=== PATIENT | female | born 1960 | race Caucasian/White ===

== ENCOUNTER 2019-05-22 12:32 | Outpatient (CLI) | payer MEDICARE, MEDICAID, SELFPAY ==
--- NOTE | ~2019-05-22 | US_ITS ---
EXAMINATION: US venous doppler [facility] EXAM DATE: 05/22/2019 13:07 INDICATION: Left leg pain. TECHNIQUE: Multiple grayscale, color flow and Doppler images of the left lower extremity deep venous system were obtained and reviewed. There is no prior study for comparison. FINDINGS: The left common femoral, femoral and profunda veins demonstrate normal color flow, respirat ory variation, augmentation and compressibility. Compressibility, color flow confirmed within the le ft popliteal, posterior tibial, peroneal, and greater saphenous veins. Small Jang's cyst measuring 2.7 x 0.7 x 2.1 cm. IMPRESSION: 1. No left lower extremity deep venous thrombosis. Reviewed, dictated and finalized at location B. 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
== END 2019-05-22 12:33 | disposition home or self-care (01) ==
LOC: ANHIMG 12:34
PROVIDERS: PCP Emergency Medicine; Visit Provider Emergency Medicine
DX: M79.662 Pain in left lower leg (principal)
CPT/HCPCS: 93971

== ENCOUNTER 2019-06-25 13:12 | Outpatient (CLI) | payer MEDICARE, MEDICAID, SELFPAY ==
--- NOTE | ~2019-06-25 | MM_ITS ---
EXAMINATION: MM screening [facility] BI w estrada HISTORY: Screening mammogram TECHNIQUE: Craniocaudal and mediolateral oblique 3-D tomosynthesis images were obtained and synthetic 2-D images were generated. CAD analysis was submitted and interpreted. COMPARISON: Comparison to multiple prior studies sequentially, with oldest reviewed study dated 08/2015. BREAST PARENCHYMAL COMPOSITION: There are scattered areas of fibroglandular density. FINDINGS: There is no evidence of suspicious mass, calcification, or architectural distortion to sugg est malignancy in either breast. There has been no suspicious interval change. IMPRESSION: 1. No mammographic evidence of malignancy. 2. Recommend routine screening mammography in one year. BI-RADS Category 1: Negative Reviewed, dictated and finalized at location A.
== END 2019-06-25 13:13 | disposition home or self-care (01) ==
LOC: ANHIMG 13:13
PROVIDERS: PCP Emergency Medicine; Visit Provider Emergency Medicine
DX: Z12.31 Encounter for screening mammogram for malignant neoplasm of breast (principal)
CPT/HCPCS: 77063; 77067

== ENCOUNTER 2019-06-28 13:37 | Outpatient (CLI) | payer MEDICARE, MEDICAID, SELFPAY ==
--- NOTE | ~2019-06-28 | CT_ITS ---
EXAMINATION: CT lung screening DATE: 06/28/2019 13:58 INDICATION: Personal history of tobacco dependence, current smoker with 30 pack year history TECHNIQUE: Computed tomography (CT) of the chest was performed without intravenous contrast. The dose -length product (DLP) was 116.43 mGy-cm. Automated exposure control and iterative reconstruction tech [employer] Test were employed. COMPARISON: 11/15/2013 FINDINGS: There is mild emphysema. A 3 mm nodule in the right upper lobe on image 29 is stable since the prior examination, consistent with old granulomatous disease. The lungs are free of acute opaciti es. There is no pleural effusion or pneumothorax. No pathologically enlarged thoracic lymph nodes are identified. The heart size is normal. There are partially imaged changes of anterior fusion procedur e in the lower cervical spine. The gallbladder is surgically absent. IMPRESSION: 1. Lung-RADS category 2: Benign appearance or behavior. Continue annual screening with noncontrast lo w-dose chest CT in 12 months. Reviewed, dictated and finalized at location A. IMPRESSION: 1. Lung-RADS category 2: Benign appearance or behavior. Continue annual screeni ng with noncontrast low-dose chest CT in 12 months.
== END 2019-06-28 13:38 | disposition home or self-care (01) ==
LOC: ANHIMG 13:39
PROVIDERS: PCP Emergency Medicine; Visit Provider Emergency Medicine
DX: Z12.2 Encounter for screening for malignant neoplasm of respiratory organs (principal); Z87.891 Personal history of nicotine dependence
CPT/HCPCS: G0297

== ENCOUNTER 2019-07-05 10:28 | Outpatient (CLI) | payer MEDICARE, MEDICAID, SELFPAY ==
--- NOTE | ~2019-07-05 | MR_ITS ---
EXAMINATION: MR lumbar spine wo con DATE: 07/05/2019 12:20 INDICATION: Lumbar radiculopathy TECHNIQUE: Magnetic resonance imaging (MRI) of the lumbar spine was performed without intravenous con trast. Sequences included sagittal T2-weighted FSE, sagittal T2-weighted FS FSE, sagittal T1-weighted FSE, and axial T2-weighted FSE. COMPARISON: Lumbar spine radiographs dated 04/25/2018 FINDINGS: 1-2 mm retrolisthesis L2 on L3, L3 on L4 and L4 on L5. Vertebral body heights are normal. Schmorl's n ode along the inferior endplate of L2. Moderate disc height loss at L2-L3 and L4-L5. Mild disc height loss at L3-L4 and L5-S1. Mild fibrofatty and fibrovascular degenerative endplate changes at these le vels. Marrow signal is otherwise normal. The conus medullaris terminates at L1-L2. There is normal si gnal in the caudal spinal cord. There is diffuse smooth thickening and peripheral clumping of the ner ve roots of the cauda equina extending inferiorly from the level of L4 consistent with arachnoiditis. Paravertebral soft tissues are unremarkable. The following disc levels are specifically discussed: T12-L1: The disc does not extend beyond the endplate margin. There is mild bilateral facet joint oste oarthritis. There is no neural foraminal stenosis. There is no central canal stenosis. L1-L2: The disc does not extend beyond the endplate margin. There is mild right and minimal left face t joint osteoarthritis. There is no neural foraminal stenosis. There is no central canal stenosis. L2-L3: Disc is bulging. There is mild bilateral facet joint osteoarthritis. There is moderate bilater al neural foraminal stenosis. There is mild central canal stenosis. L3-L4: Disc is bulging. There is mild to moderate bilateral facet joint osteoarthritis. There is mode rate bilateral neural foraminal stenosis. There is mild to moderate central canal stenosis. L4-L5: Disc is bulging. There is moderate right and mild to moderate left facet joint osteoarthritis. There is moderate bilateral neural foraminal stenosis. There is mild central canal stenosis. L5-S1: Disc is bulging. There is moderate bilateral neural facet joint osteoarthritis. There is moder ate bilateral neural foraminal stenosis. There is mild central canal stenosis. IMPRESSION: 1. Moderate lumbar spondylosis. 2. Arachnoiditis with thickened peripherally clumped nerve roots of the inferior cauda equina which c ould represent sequela of cervical spinal fusion. Differential would also include prior infection or sequela of prior intrathecal hemorrhage or intrathecal medication administration. Reviewed, dictated and finalized at location A. IMPRESSION: 1. Moderate lumbar spondylosis. 2. Arachnoiditis with thickened peripherally clumped nerve roots of the inferio r cauda equina which could represent sequela of cervical spinal fusion. Differe ntial would also include prior infection or sequela of prior intrathecal hemorr cher or intrathecal medication administration.
== END 2019-07-05 10:29 | disposition home or self-care (01) ==
PROVIDERS: PCP Emergency Medicine; Visit Provider Pain Medicine Interventional Pain Medicine
DX: M47.26 Other spondylosis with radiculopathy, lumbar region (principal); G03.9 Meningitis, unspecified; Z98.1 Arthrodesis status
CPT/HCPCS: 72148

== ENCOUNTER 2019-09-28 09:07 | Outpatient (CLI) | payer MEDICARE, MEDICAID, SELFPAY ==
--- NOTE | ~2019-09-28 | XR_ITS ---
EXAMINATION: XR lumbar spine 2-3V DATE: 09/28/2019 09:44 INDICATION: Lumbar spondylosis. TECHNIQUE: Flexion and extension views of lumbar spine were obtained. COMPARISON: Lumbar spine radiographs 04/25/2018 FINDINGS: Bone alignment is normal. There is no abnormal motion with flexion or extension. Vertebral body heights are normal. There is moderately decreased disc height at L2-L3, mildly decreased disc he ight at L3-L4 and L4-L5, and moderately decreased disc height at L5-S1. There is severe facet joint o steoarthritis in lower lumbar spine. IMPRESSION: 1. Moderate lumbar spondylosis. Reviewed, dictated and finalized at location A.
== END 2019-09-28 09:08 | disposition home or self-care (01) ==
PROVIDERS: PCP Emergency Medicine; Referring Provider Pain Medicine Interventional Pain Medicine; Visit Provider Neurological Surgery
DX: M47.816 Spondylosis without myelopathy or radiculopathy, lumbar region (principal)
CPT/HCPCS: 72100

== ENCOUNTER 2020-06-19 09:03 | Outpatient (CLI) | payer MEDICARE, MEDICAID, SELFPAY | END 2020-06-19 09:04 | disposition home or self-care (01) | LOC: ANHCOVIDVC 09:04 | PROVIDERS: PCP Emergency Medicine | DX: Z23 Encounter for immunization (principal) | CPT/HCPCS: 0001A; 91300 ==

== ENCOUNTER 2020-07-10 08:57 | Outpatient (CLI) | payer MEDICARE, MEDICAID, SELFPAY | END 2020-07-10 08:58 | disposition home or self-care (01) | LOC: ANHCOVIDVC 08:57 | PROVIDERS: PCP Emergency Medicine | DX: Z23 Encounter for immunization (principal) | CPT/HCPCS: 0002A; 91300 ==

== ENCOUNTER 2020-07-25 14:10 | Outpatient (CLI) | payer MEDICARE, MEDICAID, SELFPAY ==
--- NOTE | ~2020-07-25 | CT_ITS ---
EXAMINATION:CT lung screening DATE: 07/25/2020 14:25 INDICATION: Personal history of nicotine dependence. Current smoker with 40 pack year history. TECHNIQUE: Computed tomography (CT) of the chest was performed without intravenous contrast. Automate d exposure control and iterative reconstruction technique were employed. The dose-length product (DLP ) was 168.22 mGy-cm. COMPARISON: Chest CT 06/28/2019 FINDINGS: There is a stable 3 mm nodule in right upper lobe. There is mild scarring in paraspinal rig ht lower lobe. No pleural effusion. The heart size is normal. No pericardial effusion. There are murillo ges of cholecystectomy. There are changes of anterior and posterior fusion procedures in cervical spi ne. There is mild thoracic spondylosis. IMPRESSION: 1. Lung-RADS category 2: Benign appearance or behavior. Continue annual screening with noncontrast lo w-dose chest CT in 12 months. Reviewed, dictated and finalized at location A. IMPRESSION: 1. Lung-RADS category 2: Benign appearance or behavior. Continue annual screeni ng with noncontrast low-dose chest CT in 12 months.
== END 2020-07-25 14:11 | disposition home or self-care (01) ==
PROVIDERS: PCP Emergency Medicine; Visit Provider Emergency Medicine
DX: Z12.2 Encounter for screening for malignant neoplasm of respiratory organs (principal); Z87.891 Personal history of nicotine dependence
CPT/HCPCS: 71271

== ENCOUNTER 2020-08-28 16:24 | Outpatient (CLI) | payer MEDICARE, MEDICAID, SELFPAY ==
--- NOTE | ~2020-08-28 | MM_ITS ---
EXAMINATION: MM screening [facility] BI w estrada HISTORY: Screening TECHNIQUE: Craniocaudal and mediolateral oblique 3-D tomosynthesis images were obtained and synthetic 2-D images were generated. CAD analysis was submitted and interpreted. COMPARISON: Comparison to multiple prior studies sequentially, with oldest reviewed study dated 11/23. BREAST PARENCHYMAL COMPOSITION: There are scattered areas of fibroglandular density. FINDINGS: There is no evidence of suspicious mass, calcification, or architectural distortion to sugg est malignancy in either breast. There has been no suspicious interval change. IMPRESSION: 1. No mammographic evidence of malignancy. 2. Recommend routine screening mammography in one year. BI-RADS Category 1: Negative Reviewed, dictated and finalized at location A.
== END 2020-08-28 16:25 | disposition home or self-care (01) ==
LOC: ANHIMG 16:27
PROVIDERS: PCP Emergency Medicine; Visit Provider Emergency Medicine
DX: Z12.31 Encounter for screening mammogram for malignant neoplasm of breast (principal)
CPT/HCPCS: 77063; 77067

== ENCOUNTER 2020-09-17 16:00 | Outpatient (CLI) | payer MEDICARE, MEDICAID, SELFPAY ==
--- NOTE | ~2020-09-17 | MR_ITS ---
EXAMINATION: MR brain/brain stem wo con EXAM DATE: 09/17/2020 16:46 INDICATION: Migraine headache. TECHNIQUE: Magnetic resonance imaging (MRI) of the brain/brain stem obtained without contrast. Sagitt al T1, axial diffusion, gradient echo (T2*), T1, T2, FLAIR sequences obtained. Comparison is made to prior examination from 09/15/2012. FINDINGS: Cervical fusion hardware. There are no areas of restricted diffusion to suggest acute infar ction. There is no acute hemorrhage seen on the T2*, a hemosiderin sensitive sequence. No intrapare nchymal brain mass. The ventricles are normal in size. There are no extra-axial collections. Flow v oids are seen in the cerebral arteries on the T2-weighted sequences consistent with their expected pa tency. The orbits are unremarkable. Soft tissue is unremarkable. IMPRESSION: 1. Unremarkable brain MRI examination. Reviewed, dictated and finalized at location A.
== END 2020-09-17 16:01 | disposition home or self-care (01) ==
PROVIDERS: PCP Emergency Medicine; Visit Provider Emergency Medicine
DX: G43.909 Migraine, unspecified, not intractable, without status migrainosus (principal)
CPT/HCPCS: 70551

== ENCOUNTER 2021-03-17 15:25 | Outpatient (CLI) | payer MEDICARE, MEDICAID, SELFPAY ==
--- NOTE | ~2021-03-17 | CT_ITS ---
EXAMINATION: CT facial bones wo con DATE: 03/17/2021 15:55 INDICATION: Rhinorrhea due to spontaneous cerebrospinal fluid leak. TECHNIQUE: Computed tomography (CT) of the facial bones and maxillofacial region was performed withou t intravenous contrast. Automated exposure control and iterative reconstruction technique were employ ed. The dose-length product was 515.23 mGy-cm. COMPARISON: Brain MRI 09/17/2020, head CT 09/08/12 FINDINGS: There is rightward deviation of the nasal septum. No fracture. There are areas of bone dehi scence in the cribriform plate and fovea ethmoidalis. There is minimal mucosal thickening in the maxi llary sinuses. There are changes of anterior and posterior fusion procedures in cervical spine. IMPRESSION: 1. Chronic areas of bone dehiscence in the cribriform plate and fovea ethmoidalis, which are normal v ariants. Reviewed, dictated and finalized at location A. 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 Chronic areas of bone dehiscence in the cribriform plate and fovea ethmoidal is, which are normal variants.
== END 2021-03-17 15:26 | disposition home or self-care (01) ==
LOC: ANHIMG 15:29
PROVIDERS: PCP Emergency Medicine; Visit Provider Emergency Medicine
DX: G96.01 Cranial cerebrospinal fluid leak, spontaneous (principal); J34.89 Other specified disorders of nose and nasal sinuses; Z98.1 Arthrodesis status
CPT/HCPCS: 70486

== ENCOUNTER 2021-03-29 22:20 | Emergency (ER) | payer MEDICARE, MEDICAID, SELFPAY ==
--- NOTE | ~2021-03-29 | CT_ITS ---
EXAMINATION: CT abdomen pelvis w con DATE: 03/30/2021 01:16 INDICATION: Left lower quadrant pain TECHNIQUE: Computed tomography (CT) of the abdomen and pelvis was performed with 100 cc Omnipaque 350 intravenous contrast. The dose-length product was 525.19 mGy-cm. Automated exposure control and iter ative reconstruction technique were employed. COMPARISON: CT dated 01/17/2014. FINDINGS: Lung bases unremarkable. Heart size normal. No significant pleural or pericardial effusion. Status post cholecystectomy with expected prominence of the bile ducts. No significant vascular abno rmality. Mild atherosclerosis of the aorta. The appendix is unremarkable. Moderate colonic fecal load ing. Nonobstructive bowel gas pattern. There is colonic diverticulosis without evidence for diverticu litis. The spleen, pancreas, adrenal glands and left kidney are unremarkable. There is a small hypodense les ion in the right kidney measuring 6 mm, too small to characterize, although likely benign cysts. Uter us is surgically absent. Bladder wall is mildly prominent, likely secondary to underdistention. Small bone island in the left ilium. Moderate lumbar spondylosis. IMPRESSION: 1. No acute abnormality of the abdomen or pelvis. Reviewed, dictated and finalized at location A. SITTER
[2021-03-29 22:34] VITALS: BP 131/69; PULSE 79; RESP 18; TEMP 36.1; O2SAT 100
[2021-03-30] VITALS (10 sets, daily range): BP systolic 107–134; BP diastolic 71–77; PULSE 75–81; RESP 16–17; TEMP 36.8; O2SAT 95–99
[2021-03-30] MEDS: MORPHINE SULFATE (*CRX) 4 MG/ML INJ IV PUSH (00:46)
[2021-03-30] MEDS: ONDANSETRON INJ 4 MG/2 ML VIAL IV PUSH (00:46)
[2021-03-30 00:54] LABS: Basophils Percent Auto 0.3 % (0.2-1.2); Eosinophils Absolute Auto 0.5 K/mm3 (0-0.3); Eosinophils Percent Auto 8.3 % (0-4.4); Hematocrit 39.1 % (37.0-47.0); Hemoglobin 12.4 g/dL (12.0-15.0); Immature Granulocyte Absolute 0.01 K/mm3 (0.00-0.031); Immature Granulocyte Percent A 0.2 % (0-0.5); Immature Platelet Fraction Pct 8.7 % (0.9-11.2); Lymphocytes Absolute Auto 2.36 K/mm3 (0.9-3.2); Lymphocytes Percent Auto 37.6 % (18.3-44.2); Mean Corpuscular HGB Conc 31.7 g/dl (32-36); Mean Corpuscular Hemoglobin 27.3 pg (26-34); Mean Corpuscular Volume 86.1 fl (80-100); Mean Platelet Volume 11.8 fl (7.4-10.4); Monocytes Absolute Auto 0.8 K/mm3 (0.1-0.6); Monocytes Percent Auto 12.1 % (2.6-8.5); Neutrophils Absolute Auto 2.6 K/mm3 (1.3-6.7); Neutrophils Percent Auto 41.5 % (45.5-73.1); Platelet Count Result 170 k/mm3 (150-375); Red Blood Count 4.54 M/mm3 (4.2-5.4); Red Cell Distribution Width 19.2 % (11.5-14.5); White Blood Count 6.3 K/mm3 (4.5-10.0)
[2021-03-30 01:02] LABS: Alanine Aminotransferase 16 U/L (4-35); Albumin Level 3.7 g/dL (3.5-5.1); Alkaline Phosphatase 53 U/L (38-126); Anion Gap 4 mmol/L (8-16); Aspartate Amino Transferase 19 U/L (14-36); Bilirubin,Total 0.2 mg/dL (0.2-1.3); Blood Urea Nitrogen 9 mg/dL (7-17); Calcium 8.8 mg/dL (8.4-10.2); Carbon Dioxide 30 mmol/L (22-30); Chloride 100 mmol/L (98-107); Estimated CRCL calculation 57 ml/min; Estimated Glomerular Filt Rate > 60; Glucose 93 mg/dL (65-110); Lactic Acid Reflex 0.7 mmol/L (0.7-2.1); Potassium 3.5 mmol/L (3.4-5.0); Sodium 134 mmol/L (137-145)
--- NOTE | 2021-03-30 01:05 | PC.NURSE ---
Patient taken to CT via stretcher.
[2021-03-30 01:08] LABS: INR 0.9; Prothrombin Time 12.2 Seconds (11.1-14.7)
[2021-03-30 01:09] LABS: Partial Thromboplastin Time 27.8 SECONDS (22.3-36.8)
[2021-03-30 01:18] LABS: Add Urine Microscopic? YES; Appearance Urine Clear (Clear); Bacteria Urine Trace /hpf; Bilirubin Urine Negative (Negative); Blood Urine Negative (Negative); Color Urine Yellow (Yellow); Glucose Urine UA Negative (Negative); Ketones Urine Negative (Negative); Leukocyte Esterase Ur Trace LEU/UL (Negative); Mucus Urine Rare /lpf; Nitrate Urine Negative (Negative); Protein Urine Negative (Negative); RBC Urine 0-2 /hpf (0-2); Specific Grav Ur 1.008 (1.001-1.035); Squamous Epithelial Cell Urine Many /hpf (Few); Urobilinogen Urine Negative mg/dL (<2.0)
[2021-03-30 01:20] LABS: D Dimer 0.27 ug/mL (<0.48)
--- NOTE | 2021-03-30 01:34 | ED.GENADULT ---
HPI - General Adult General Chief complaint: Back Pain/Injury Stated complaint: left flank pain Time Seen by Provider: 03/30/21 00:16 History of Present Illness HPI narrative: Patient 60-year-old female presents emerged from with chief complaint of left leg and left lower extremity pain. The patient reports that she has history of chronic back pain. Patient reports she has spinal injections done and also has a spine surgeon is planning on doing surgery on her when she loses little more weight patient states that she has pain that radiates down her left lower extremity states that she is concerned that she may have a DVT in that leg. Patient denies trauma reports the pain is worse with movement Related Data Home Medications Medication Instructions Recorded Confirmed atorvastatin 10 mg DAILY 04/12/19 02/02/21 cyclobenzaprine 10 mg TID 04/12/19 02/02/21 duloxetine 60 mg PO DAILY 04/12/19 02/02/21 esomeprazole magnesium 40 mg DAILY 04/12/19 02/02/21 gabapentin 300 mg TID 04/12/19 02/02/21 losartan-hydrochlorothiazide 1 tablet DAILY 04/12/19 02/02/21 pregabalin [Lyrica] 300 mg DAILY 04/12/19 02/02/21 quetiapine 100 mg HS 04/12/19 02/02/21 ropinirole 2 mg DAILY 04/12/19 02/02/21 topiramate 50 mg DAILY 04/12/19 02/02/21 trazodone 50 mg DAILY 04/12/19 02/02/21 phentermine 37.5 mg disintegrating mg PO 01/27/21 02/02/21 tablet sumatriptan succinate 100 mg tablet 100 mg PO ONCE 01/27/21 02/02/21 Allergies Allergy/AdvReac Type Severity Reaction Status Date / Time No Known Allergies Allergy Verified 03/29/21 22:38 Review of Systems Review of Systems: A 10 system review of systems was completed on the patient and is negative except for what is stated in the HPI. Nursing and ancillary documentation was reviewed. [facility] Past Medical History Medical History Barton's esophagus with esophagitis DJD (degenerative joint disease) Fibromyalgia HLD (hyperlipidemia) HTN (hypertension) Surgical History Surgical History History of fusion of cervical spine Hx of cholecystectomy Hx of hysterectomy Family History Family History Father Family history of arthritis Family history of lung cancer Family history of malignant neoplasm of urinary bladder Mother Family history of arthritis Social History Social History Smoking status: Current some day smoker Second hand tobacco smoke exposure: Yes Smoking end date: 04/11/06 Alcohol intake: never Gender identity (if verbalized by the patient): Female Exam Narrative: GENERAL: Well-appearing, well-nourished, and in no acute distress. HEAD: Normocephalic, atraumatic. EYES: PERRLA and EOMI. ENT: Nares clear, no rhinorrhea or epistaxis. Mucous membranes moist. NECK: Supple. CHEST: Clear to auscultation. No respiratory distress. HEART: Regular rate and rhythm. No murmur heard. Normal peripheral pulses. ABDOMEN: Soft, nontender, nondistended, normal active bowel sounds. EXTREMITIES: Normal range of motion. No edema. SKIN: Warm, dry, no rash. NEURO: No focal deficits. Alert and oriented x3. PSYCH: Normal mood and affect. Course Course Emergency Course: CT scan shows no evidence of acute abnormality. Vital Signs Vital signs: Vital Signs Temperature 36.1 C L 03/29/21 22:34 Pulse Rate 79 03/29/21 22:34 Respiratory Rate 18 03/29/21 22:34 Blood Pressure 131/69 03/29/21 22:34 Pulse Oximetry 100 03/29/21 22:34 Temperature 36.1 C L 03/29/21 22:34 Pulse Rate 75 03/30/21 02:31 Respiratory Rate 17 03/30/21 02:31 Blood Pressure 113/77 03/30/21 02:31 Pulse Oximetry 99 03/30/21 02:31 Medical Decision Making Vital Signs Vital Signs: Vital Signs Temperature 36.1 C L 03/29/21 22:34 Pulse
--- NOTE | 2021-03-30 03:49 | PC.NURSE ---
Patient has ride home, ambulating in room with a steady gait. Patient a/ox4. Patient verbalized understanding of discharge instructions again.
== END 2021-03-30 03:58 | disposition home or self-care (01) ==
PROVIDERS: Emergency Provider Emergency Medicine; PCP Emergency Medicine
DX: M54.42 Lumbago with sciatica, left side (principal); E78.5 Hyperlipidemia, unspecified; I10 Essential (primary) hypertension; M79.7 Fibromyalgia; M19.90 Unspecified osteoarthritis, unspecified site; F17.210 Nicotine dependence, cigarettes, uncomplicated; R82.998 Other abnormal findings in urine
CPT/HCPCS: 36415; 74177; 80053; 81001; 83605; 83735; 85025; 85055; 85380; 85610; 85730; 87086; 96374; 96375; 99284; J2270; J2405; Q9967

== ENCOUNTER 2021-03-30 07:53 | Outpatient (CLI) | payer MEDICARE, MEDICAID, SELFPAY ==
--- NOTE | ~2021-03-30 | US_ITS ---
EXAMINATION: US venous doppler [facility] DATE: 03/30/2021 08:24 INDICATION: Left lower limb pain. TECHNIQUE: Grayscale ultrasound images without and with compression and Doppler ultrasound images of the left lower extremity veins were obtained. COMPARISON: Ultrasound 05/22/2019 FINDINGS: The visualized portions of left common femoral vein, profunda (deep) femoral vein, femoral vein, popl iteal vein, peroneal veins, posterior tibial veins, and greater saphenous vein outflow are patent. IMPRESSION: 1. No deep venous thrombosis. Reviewed, dictated and finalized at location A. 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
== END 2021-03-30 07:54 | disposition home or self-care (01) ==
PROVIDERS: PCP Emergency Medicine; Visit Provider Emergency Medicine
DX: M79.605 Pain in left leg (principal)
CPT/HCPCS: 93971

== ENCOUNTER 2021-04-22 08:00 | Outpatient (CLI) | payer MEDICARE, MEDICAID, SELFPAY ==
--- NOTE | ~2021-04-22 | CT_ITS ---
EXAMINATION: CTA brain carotid EXAM DATE: 04/22/2021 08:35 INDICATION: Syncope and collapse. TECHNIQUE: Noncontrast head CT. Spiral CTA of the carotid arteries was performed with intravenous i njection 100 cc of Omnipaque 350. Axial, coronal, sagittal reformatted images reviewed. Additional r eformatted images created on dedicated 3-D workstation. NASCET comparable standard used to assess th e degree of arterial stenosis. Spiral CT angiogram cerebral arteries performed with the same intrave nous injection of contrast. Source images of the brain CTA transferred to dedicated workstation for 3 -D rotational image creation. Coronal, sagittal maximum intensity pixel images also reviewed. The d ose-length product (DLP) for this examination was 1676.60 mGy-cm. The exposure was tailored accordi ng to patient size, and iterative reconstruction (ASIR) was used as additional dose reduction techniq ue. Comparison is made to prior examination from 11/21/2016. FINDINGS: Mild bilateral carotid bulb arterial sclerosis, 0% stenosis bilaterally. The left vertebral artery is dominant. There is no carotid or vertebral basilar arterial dissection or fibromuscular d ysplasia. There are no cerebral artery aneurysms. There is symmetric cerebral artery arborization. Th e sagittal, transverse and sigmoid sinuses enhance normally, no venous sinus thrombosis. Internal cer ebral veins also enhance normally. There is mild microangiopathy. There is no acute intraparenchymal hemorrhage. No evidence of intrapa renchymal brain mass lesion. No evidence of acute infarction. There is no mass effect or midline zoltan ft. There is no obstructive hydrocephalus suspected. There are no extra-axial collections. Incidental Findings: Cervical spondylosis, surgical changes. Fusion from C3-7, with posterior pedicul ar screws, fusion C3-C6, and anterior plate C5-7, interbody devices at C4-5. Laminectomy C3-C6.. Ther e is 4 mm anterolisthesis C7 on T1. IMPRESSION: 1. No acute carotid or intracranial findings. 2. Bilateral carotid bulb 0% stenosis. 3. Cervical surgical changes. 4. Mild microangiopathy. Reviewed, dictated and finalized at location A. MANAGER
== END 2021-04-22 08:01 | disposition home or self-care (01) ==
LOC: ANHIMG 08:04
PROVIDERS: PCP Emergency Medicine; Visit Provider Emergency Medicine
DX: R55 Syncope and collapse (principal); I73.9 Peripheral vascular disease, unspecified
CPT/HCPCS: 70496; 70498; Q9967

== ENCOUNTER 2021-05-01 13:55 | Emergency (ER) | payer MEDICARE, MEDICAID, SELFPAY ==
[2021-05-01 13:59] VITALS: BP 131/72; PULSE 108; RESP 18; TEMP 36.7; O2SAT 98
--- NOTE | 2021-05-01 15:33 | ED.GENADULT ---
HPI - General Adult General Chief complaint: Skin/Abscess/Foreign Body Stated complaint: bug bites Time Seen by Provider: 05/01/21 15:07 Source: patient Mode of arrival: ambulatory Limitations: no limitations History of Present Illness HPI narrative: 60-year-old female presents to the ED with concern for insect bites to the upper extremities, thighs, and back. The patient states that she recently had an acute coordinator come to her house and had a treatment to the home for bedbugs. She continues to visualize very small insects on her skin. She does admit to occasional skin picking as a result. No purulent drainage from the areas. She was recently prescribed Macrobid for these lesions. No history of fever or chills. Related Data Home Medications Medication Instructions Recorded Confirmed atorvastatin 10 mg DAILY 04/12/19 02/02/21 cyclobenzaprine 10 mg TID 04/12/19 02/02/21 duloxetine 60 mg PO DAILY 04/12/19 02/02/21 esomeprazole magnesium 40 mg DAILY 04/12/19 02/02/21 gabapentin 300 mg TID 04/12/19 02/02/21 losartan-hydrochlorothiazide 1 tablet DAILY 04/12/19 02/02/21 pregabalin [Lyrica] 300 mg DAILY 04/12/19 02/02/21 quetiapine 100 mg HS 04/12/19 02/02/21 ropinirole 2 mg DAILY 04/12/19 02/02/21 topiramate 50 mg DAILY 04/12/19 02/02/21 trazodone 50 mg DAILY 04/12/19 02/02/21 phentermine 37.5 mg disintegrating mg PO 01/27/21 02/02/21 tablet sumatriptan succinate 100 mg tablet 100 mg PO ONCE 01/27/21 02/02/21 Allergies Allergy/AdvReac Type Severity Reaction Status Date / Time No Known Allergies Allergy Verified 03/29/21 22:38 Review of Systems Review of Systems: CONSTITUTIONAL: Denies fever, chills, or sweats. EYES: Denies visual changes, redness, or discharge. ENT: Denies rhinorrhea, congestion, sore throat, or otalgia. CARDIOVASCULAR: Denies chest pain, palpitations, or edema. RESPIRATORY: Denies cough or dyspnea. GASTROINTESTINAL: Denies abdominal pain, nausea, vomiting, or diarrhea. GENITOURINARY: Denies dysuria or hematuria. SKIN: Pruritic and painful lesions to the trunk, upper extremities, and lower extremities MUSCULOSKELETAL: Denies back pain, joint pain, or myalgia. NEUROLOGIC: Denies headache, numbness, dizziness, or weakness. PSYCHIATRIC: Denies anxiety or depression. All systems reviewed & are unremarkable except as noted in HPI and below PMFSH Past Medical History Medical History Barton's esophagus with esophagitis DJD (degenerative joint disease) Fibromyalgia HLD (hyperlipidemia) HTN (hypertension) Surgical History Surgical History History of fusion of cervical spine Hx of cholecystectomy Hx of hysterectomy Family History Family History Father Family history of arthritis Family history of lung cancer Family history of malignant neoplasm of urinary bladder Mother Family history of arthritis Social History Social History Smoking status: Current some day smoker Second hand tobacco smoke exposure: Yes Smoking end date: 04/11/06 Alcohol intake: never Gender identity (if verbalized by the patient): Female Exam Narrative: GENERAL: Obese, in no acute distress. HEAD: Normocephalic, atraumatic. EYES: PERRLA and EOMI. ENT: Nares clear, no rhinorrhea or epistaxis. Mucous membranes moist. Oropharynx without tonsillar hypertrophy exudate or other lesions. Bilateral TMs pearly celaya nonbulging NECK: Supple. No adenopathy or masses. No carotid bruits or JVD CHEST: Clear to auscultation. No respiratory distress. No wheezes rales or rhonchi HEART: Regular rate and rhythm. No murmur heard. Normal peripheral pulses. ABDOMEN: Soft, nontender, nondistended, normal active bowel sounds. EXTREMITIES: Normal range of motion. No edema. SKIN: Numerous shallow ulcerations w
== END 2021-05-01 16:25 | disposition home or self-care (01) ==
LOC: ANHED 15:54
PROVIDERS: Emergency Provider Emergency Medicine; PCP Emergency Medicine
DX: L98.9 Disorder of the skin and subcutaneous tissue, unspecified (principal); K22.70 Barrett's esophagus without dysplasia; K20.90 Esophagitis, unspecified without bleeding; M79.7 Fibromyalgia; E78.5 Hyperlipidemia, unspecified; I10 Essential (primary) hypertension; Z98.1 Arthrodesis status; Z87.891 Personal history of nicotine dependence
CPT/HCPCS: 99283

== ENCOUNTER 2021-06-01 23:09 | Emergency (ER) | payer MEDICARE, MEDICAID, SELFPAY ==
[2021-06-01 23:25] VITALS: BP 139/85; PULSE 95; RESP 20; TEMP 36.6; O2SAT 100
[2021-06-02 02:09] VITALS: PULSE 80; RESP 14; O2SAT 94
--- NOTE | 2021-06-02 02:19 | ED.SKABFB ---
HPI - Skin/Abscess/Foreign Bdy General Chief complaint: Skin/Abscess/Foreign Body Stated complaint: discoloration to skin Time Seen by Provider: 06/02/21 02:14 Source: patient Mode of arrival: ambulatory Limitations: no limitations History of Present Illness HPI narrative: Patient is a 60-year-old female complaining of multiple bumps all over her body, arm, legs and back since first week of April. Patient states that she has seen her doctor for multiple times for it and placed on multiple rounds of antibiotics, but continues to have it. Patient was referred to a director of individual giving and had a biopsy done recently, awaiting results. No other complaints at this time. Related Data Home Medications Medication Instructions Recorded Confirmed atorvastatin 10 mg DAILY 04/12/19 02/02/21 cyclobenzaprine 10 mg TID 04/12/19 02/02/21 duloxetine 60 mg PO DAILY 04/12/19 02/02/21 esomeprazole magnesium 40 mg DAILY 04/12/19 02/02/21 gabapentin 300 mg TID 04/12/19 02/02/21 losartan-hydrochlorothiazide 1 tablet DAILY 04/12/19 02/02/21 pregabalin [Lyrica] 300 mg DAILY 04/12/19 02/02/21 quetiapine 100 mg HS 04/12/19 02/02/21 ropinirole 2 mg DAILY 04/12/19 02/02/21 topiramate 50 mg DAILY 04/12/19 02/02/21 trazodone 50 mg DAILY 04/12/19 02/02/21 phentermine 37.5 mg disintegrating mg PO 01/27/21 02/02/21 tablet sumatriptan succinate 100 mg tablet 100 mg PO ONCE 01/27/21 02/02/21 Allergies Allergy/AdvReac Type Severity Reaction Status Date / Time No Known Allergies Allergy Verified 03/29/21 22:38 Review of Systems Review of Systems: All systems reviewed & are unremarkable except as noted in HPI and below PMFSH Past Medical History Medical History Barton's esophagus with esophagitis DJD (degenerative joint disease) Fibromyalgia HLD (hyperlipidemia) HTN (hypertension) Surgical History Surgical History History of fusion of cervical spine Hx of cholecystectomy Hx of hysterectomy Family History Family History Father Family history of arthritis Family history of lung cancer Family history of malignant neoplasm of urinary bladder Mother Family history of arthritis Social History Social History Smoking status: Current some day smoker Second hand tobacco smoke exposure: Yes Smoking end date: 04/11/06 Alcohol intake: never Gender identity (if verbalized by the patient): Female Exam Const: General: no acute distress and alert Orientation/consciousness: patient oriented x3 HENMT: Head: normal to inspection Eyes: Conjunctivae: conjunctivae normal Neck: Neck: normal visual inspection Resp: Effort & Inspection: normal respiratory effort Skin: Other: Erythematous maculopapular round rash bilateral upper extremity, lower extremity and upper back Course Vital Signs Vital signs: Vital Signs Temperature 36.6 C 06/01/21 23:25 Pulse Rate 95 06/01/21 23:25 Respiratory Rate 20 06/01/21 23:25 Blood Pressure 139/85 06/01/21 23:25 Pulse Oximetry 100 06/01/21 23:25 Temperature 36.6 C 06/01/21 23:25 Pulse Rate 80 06/02/21 02:09 Respiratory Rate 14 06/02/21 02:09 Blood Pressure 139/85 06/01/21 23:25 Pulse Oximetry 94 06/02/21 02:09 MDM - Skin/Abscess/Foreign Bdy MDM Narrative Medical decision making narrative: Advised patient to follow-up with her director of individual giving for the biopsy results. Discharge Plan Discharge Clinical Impression: Rash and nonspecific skin eruption Patient Disposition: Home, Self-Care Condition: Improved Instructions: Acute Rash (ED) Additional Instructions: Follow-up with your director of individual giving in 1 to 2 days for biopsy results. Prescriptions: No Action prednisone 20 mg tablet 20 mg PO BID 5 Days Qty: 10 RF: 0 albuter
== END 2021-06-02 03:04 | disposition home or self-care (01) ==
LOC: ANHED 06-02 02:30
PROVIDERS: Emergency Provider Emergency Medicine; PCP Emergency Medicine
DX: R21 Rash and other nonspecific skin eruption (principal); K22.70 Barrett's esophagus without dysplasia; M79.7 Fibromyalgia; E78.5 Hyperlipidemia, unspecified; I10 Essential (primary) hypertension; Z98.1 Arthrodesis status; Z87.891 Personal history of nicotine dependence; Z77.22 Contact with and (suspected) exposure to environmental tobacco smoke (acute) (chronic)
CPT/HCPCS: 99282

== ENCOUNTER 2021-06-23 08:59 | Outpatient (CLI) | payer MEDICARE, MEDICAID, SELFPAY ==
--- NOTE | ~2021-06-23 | XR_ITS ---
EXAMINATION: XR lumbar spine 2-3V DATE: 06/23/2021 09:34 INDICATION: Lumbosacral radiculopathy. TECHNIQUE: 3 views of lumbar spine were obtained. COMPARISON: Lumbar spine radiograph 09/28/2019, CT abdomen and pelvis 03/30/2021 FINDINGS: Bone alignment is normal. Vertebral body heights are normal. There is severely decreased di sc height at L2-L3, moderately decreased disc height at L3-L4 and L4-L5, and severely decreased disc height at L5-S1 with endplate remodeling. There is severe facet joint osteoarthritis in lower lumbar spine. Surgical clips in the right upper quadrant are likely from cholecystectomy. IMPRESSION: 1. Severe lumbar spondylosis, worsened from 04/25/2018. Reviewed, dictated and finalized at location A.
--- NOTE | ~2021-06-23 | XR_ITS ---
EXAMINATION: XR_CERV2-3V_CR DATE: 06/23/2021 09:34 INDICATION: Cervical radiculopathy. TECHNIQUE: 3 views of cervical spine were obtained. COMPARISON: Cervical spine radiographs 04/25/18 FINDINGS: There is 2 mm retrolisthesis of C3 on C4 and C4 on C5. There are changes of anterior fusion procedure from C4 to C7 with healed interbody bone graft. There is an anterior plate and screws from C5 to C7. There are changes of posterior fusion procedure from C3 to C6 with lateral mass screws. Ve rtebral body heights are normal. There is moderately decreased disc height at C3-C4. There is mild ri ght facet joint hypertrophy at C3-C4. There is mild central canal stenosis C3-C4 and C4-C5. There is posterior decompression from C3 to C6. IMPRESSION: 1. Stable moderate cervical spondylosis. 2. Anterior fusion procedure from C4 to C7 and posterior fusion procedure from C3 to C6. Reviewed, dictated and finalized at location A.
== END 2021-06-23 09:00 | disposition home or self-care (01) ==
PROVIDERS: PCP Emergency Medicine; Visit Provider Pain Medicine Interventional Pain Medicine
DX: M54.17 Radiculopathy, lumbosacral region (principal); M54.12 Radiculopathy, cervical region; M47.816 Spondylosis without myelopathy or radiculopathy, lumbar region; M47.812 Spondylosis without myelopathy or radiculopathy, cervical region; Z98.1 Arthrodesis status
CPT/HCPCS: 72040; 72100

== ENCOUNTER 2021-12-07 08:15 | Outpatient (CLI) | payer MEDICARE, MEDICAID, SELFPAY ==
--- NOTE | ~2021-12-07 | CT_ITS ---
EXAMINATION: CT lung screening DATE: 12/07/2021 08:36 INDICATION: NICOTINE DEPENDENCE TECHNIQUE: Computed tomography (CT) of the chest was performed without intravenous contrast. Addition al 3D reconstructions utilizing coronal maximum intensity projection (MIP) were performed. Automated exposure control and iterative reconstruction technique were employed. The dose-length product was 79 .23 mGy-cm. COMPARISON: 07/25/2020 FINDINGS: Unchanged 4 x 2 mm groundglass nodule at the right apex. No other new or enlarging pulmonary nodules, pneumonia, pulmonary edema or pleural effusion. Heart size is normal. No pericardial effusion. Thora cic aorta is normal in caliber. No pathologically enlarged thoracic lymphadenopathy. Incompletely vis ualized anterior plate and screw fixation for anterior spinal fusion extending cephalad from C7. Ther e is 4 mm anterolisthesis C7 on T1 severe associated disc height loss. Mild to moderate spondylosis i n the more caudal thoracic spine. Cholecystectomy clips at the gallbladder fossa. IMPRESSION: 1. Lung-RADS category 2: Benign appearance or behavior. Continue annual screening with noncontrast lo w-dose chest CT in 12 months. Reviewed, dictated and finalized at location A. IMPRESSION: 1. Lung-RADS category 2: Benign appearance or behavior. Continue annual screeni ng with noncontrast low-dose chest CT in 12 months.
== END 2021-12-07 08:16 | disposition home or self-care (01) ==
PROVIDERS: PCP Emergency Medicine; Visit Provider Emergency Medicine
DX: Z12.2 Encounter for screening for malignant neoplasm of respiratory organs (principal); Z87.891 Personal history of nicotine dependence
CPT/HCPCS: 71271

== ENCOUNTER 2022-01-30 08:50 | Outpatient (CLI) | payer MEDICARE, MEDICAID, SELFPAY ==
--- NOTE | ~2022-01-30 | MR_ITS ---
EXAMINATION: MR cervical spine wo con DATE: 01/30/2022 09:26 INDICATION: Cervical radiculopathy. TECHNIQUE: Magnetic resonance imaging (MRI) of the cervical spine was performed without intravenous c ontrast. Sequences included sagittal T2-weighted FSE, sagittal T2-weighted FS FSE, sagittal T1-weight ed FSE, axial MERGE, and axial T2-weighted FSE. COMPARISON: Cervical spine MRI 06/20/2015 FINDINGS: There is 2 mm retrolisthesis of C3 on C4. There is 3 mm anterolisthesis of C7 on T1. There are changes of anterior fusion procedure from C4 to C7 with discectomies, healed interbody bone graft , and anterior plate and screws. There is mildly decreased disc height at C3-C4 at C7-T1. There are l aminectomies from C3 to C6. There are changes of posterior fusion procedure from C3 to C6 with latera l mass screws. The spinal cord signal intensity is normal. The following disc levels are specifically discussed: C2-C3: There is a central extrusion. There is no uncovertebral joint osteoarthritis. There is mild ri ght and severe left facet joint osteoarthritis. There is mild left neural foraminal stenosis. There i s no central canal stenosis. C3-C4: The disc does not extend beyond the endplate margin. There is ankylosis of the uncovertebral j oints with moderate hypertrophy. There is mild bilateral facet joint hypertrophy. There is mild bilat eral neural foraminal stenosis. There is mild central canal stenosis. C4-C5: There is mild bilateral uncovertebral joint hypertrophy. There is mild bilateral facet joint h ypertrophy. There is mild right neural foraminal stenosis. There is no central canal stenosis. C5-C6: There is no uncovertebral joint hypertrophy. There is mild left facet joint hypertrophy. There is no neural foraminal stenosis. There is no central canal stenosis. C6-C7: There is moderate bilateral uncovertebral joint hypertrophy. There is moderate bilateral facet joint hypertrophy. There is mild bilateral neural foraminal stenosis. There is no central canal sten osis. C7-T1: There is a central extrusion. There is severe bilateral uncovertebral joint osteoarthritis. Th ere is severe bilateral facet joint osteoarthritis. There is moderate bilateral neural foraminal sten osis. There is mild central canal stenosis. IMPRESSION: 1. Moderate cervical spondylosis. 2. Anterior fusion from C3 to C7. Posterior fusion from C3 to C6. Reviewed, dictated and finalized at location A.
== END 2022-01-30 08:51 | disposition home or self-care (01) ==
LOC: ANHIMG 08:51
PROVIDERS: PCP Emergency Medicine; Visit Provider Pain Medicine Interventional Pain Medicine
DX: M47.812 Spondylosis without myelopathy or radiculopathy, cervical region (principal); M47.813 Spondylosis without myelopathy or radiculopathy, cervicothoracic region; M47.816 Spondylosis without myelopathy or radiculopathy, lumbar region; M47.817 Spondylosis without myelopathy or radiculopathy, lumbosacral region; M51.36 Other intervertebral disc degeneration, lumbar region; M51.37 Other intervertebral disc degeneration, lumbosacral region; Z98.1 Arthrodesis status
CPT/HCPCS: 72141

== ENCOUNTER 2022-01-31 12:07 | Emergency (ER) | payer MEDICARE, MEDICAID, SELFPAY ==
--- NOTE | ~2022-01-31 | XR_ITS ---
EXAMINATION: XR chest 2V DATE: 01/31/2022 13:04 INDICATION: Chest pain. Hypertension. TECHNIQUE: PA and lateral views of the chest were obtained. COMPARISON: Chest radiograph dated 10/26/16 FINDINGS: The lungs remain clear with no focal airspace opacities, pulmonary edema, pleural effusion or pneumot horax. The cardiomediastinal silhouette is normal. The cystectomy clips in the right upper quadrant. Enhancement anterior and posterior spinal fusion in the visualized lower cervical spine. IMPRESSION: 1. No acute cardiopulmonary disease. Reviewed, dictated and finalized at location A.
--- NOTE | 2022-01-31 12:08 | ECG_ITS ---
Measurements Intervals [place] Rate: 90 P: 71 AK: 161 QRS: 39 QRSD: 76 T: 51 QT: 356 QTc: 438 Interpretive Statements SINUS RHYTHM POSSIBLE LEFT ATRIAL ENLARGEMENT [-0.1mV P WAVE IN V1/V2] LOW QRS VOLTAGE IN PRECORDIAL LEADS [QRS DEFLECTION < 1.0 mV IN CHEST LEADS] NO PREVIOUS ECG AVAILABLE FOR COMPARISON Electronically Signed On 01-31-2022 19:47:42 CDT by Any Ulloa M.D.
[2022-01-31 12:24] LABS: Basophils Percent Auto 0.3 % (0.2-1.2); Eosinophils Absolute Auto 0.1 K/mm3 (0-0.3); Eosinophils Percent Auto 1.9 % (0-4.4); Hematocrit 45.6 % (37.0-47.0); Hemoglobin 14.5 g/dL (12.0-15.0); Immature Granulocyte Absolute 0.02 K/mm3 (0.00-0.031); Immature Granulocyte Percent A 0.3 % (0-0.5); Immature Platelet Fraction Pct 8.5 % (0.9-11.2); Lymphocytes Absolute Auto 2.06 K/mm3 (0.9-3.2); Lymphocytes Percent Auto 29.8 % (18.3-44.2); Mean Corpuscular HGB Conc 31.8 g/dl (32-36); Mean Corpuscular Hemoglobin 26.9 pg (26-34); Mean Corpuscular Volume 84.4 fl (80-100); Monocytes Absolute Auto 0.6 K/mm3 (0.1-0.6); Monocytes Percent Auto 9.1 % (2.6-8.5); Neutrophils Absolute Auto 4.1 K/mm3 (1.3-6.7); Neutrophils Percent Auto 58.6 % (45.5-73.1); Platelet Count Result 209 k/mm3 (150-375); Red Cell Distribution Width 21.2 % (11.5-14.5); White Blood Count 6.9 K/mm3 (4.5-10.0)
[2022-01-31 12:32] LABS: Partial Thromboplastin Time 25.1 SECONDS (22.3-36.8); Prothrombin Time 12.3 Seconds (11.1-14.7)
[2022-01-31 12:42] VITALS: BP 119/66; PULSE 78; RESP 16; TEMP 36.4; O2SAT 96
[2022-01-31 13:11] LABS: Alanine Aminotransferase 20 U/L (6-35); Albumin Level 4.3 g/dL (3.5-5.1); Alkaline Phosphatase 61 U/L (38-126); Anion Gap 12 mmol/L (8-16); Aspartate Amino Transferase 25 U/L (14-36); Bilirubin,Total 0.7 mg/dL (0.2-1.3); Blood Urea Nitrogen 13 mg/dL (7-17); Calcium 8.4 mg/dL (8.4-10.2); Carbon Dioxide 27 mmol/L (22-30); Chloride 103 mmol/L (98-107); Estimated CRCL calculation 63 ml/min; Estimated Glomerular Filt Rate > 60; Glucose 97 mg/dL (65-110); Lipase 46 U/L (23-300); Potassium 3.7 mmol/L (3.4-5.0); Sodium 142 mmol/L (137-145)
[2022-01-31 13:20] LABS: Troponin I < 0.012 ng/mL (0.000-0.034)
== END 2022-02-01 02:04 | disposition left against medical advice (07) ==
PROVIDERS: Emergency Provider Emergency Medicine; PCP Emergency Medicine
DX: R07.9 Chest pain, unspecified (principal)
CPT/HCPCS: 36415; 71046; 80053; 83690; 84484; 85025; 85055; 85610; 85730; 93005; 99199

== ENCOUNTER 2022-02-02 08:27 | Outpatient (CLI) | payer MEDICARE, MEDICAID, SELFPAY ==
--- NOTE | ~2022-02-02 | MM_ITS ---
EXAMINATION: MM screening [facility] BI w [place] HISTORY: Screening mammogram TECHNIQUE: Craniocaudal and mediolateral oblique 3-D tomosynthesis images were obtained and synthetic 2-D images were generated. CAD analysis was submitted and interpreted. COMPARISON: 08/28/2020, 06/25/2019, 06/12/2018, 05/19/2018 BREAST PARENCHYMAL COMPOSITION: There are scattered areas of fibroglandular density. FINDINGS: No suspicious mass, calcification, or architectural distortion are identified in either morales ast to suggest malignancy. There has been no suspicious interval change. IMPRESSION: 1. No mammographic evidence of malignancy. 2. Recommend routine screening mammography in one year. BI-RADS Category 1: Negative Reviewed, dictated and finalized at location A.
== END 2022-02-02 08:28 | disposition home or self-care (01) ==
LOC: ANHIMG 08:29
PROVIDERS: PCP Emergency Medicine; Visit Provider Emergency Medicine
DX: Z12.31 Encounter for screening mammogram for malignant neoplasm of breast (principal)
CPT/HCPCS: 77063; 77067

== ENCOUNTER 2022-04-15 08:45 | Outpatient (RCR) | payer MEDICARE, MEDICAID, SELFPAY ==
--- NOTE | 2022-03-31 09:02 | PTOPEVAL1 ---
Assessment and note entered by Mai Kent, PT Evaluation Information Assessment Status Evaluation Diagnosis cervical pain Onset October 2021 Subjective Information about 5 months ago, gradually had more pain in neck; going to pain management and have had 2 rounds of injections in neck --they helped, now insurance says have to have PT treatments; Have had PT for her neck several years ago---do not recall anything that helped; Oswestry score of 66% limitation in activity with self assessment. Does not do any stretches or exercises for her neck or shoulder; Reported Pain Level Pain Score Self Report Additional Pain Score Comments pain 8/10 all the time; tingling, sharp, achey, pain in neck and R shoulder down arm to 4 & 5th fingers-constantly; increase pain with using arm and sitting still--hurts all the time no matter what she does; have tried everything--heat, rub, muscle cream, sling on arm--nothing helps; cannot get comfortable position for arm; take sleeping meds that help her sleep; have headaches about once/month; Oswestry 66% limitation; Assessment PT Clinical Summary Angella has the diagnosis of cervical pain, with radiculopathy into R 4 & 5th fingers. She has chronic neck and back pain, with fibromyalgia and has had 3 cervical surgeries, the last in 2016. Self assessment Oswestry score of 66% limitation in activity level. She reports pain with all activity and using R arm. MRI report stated moderate spondylosis and fusion anterior C 3-7 and posterior C3-6. With the evaluation, she has decreased cervical ROM and painful R shoulder IR. Decreased strength of R and L shoulder, with muscle spasms and tightness over cervical spine, pecs and upper traps. She has poor positioning of her neck and shoulders. Skilled PT services are indicated for modalities to decrease pain and spasms; therapeutic exercises to stretch and strengthen cervical-thoracic musculature to improve posture and position of neck, and education for home exercises and posture Plan of Care Interventions Electrical Stimulation,Hot Pack/Cold Pack,Manual Therapy,Mechanical Traction,Patient/Caregiver Ed
--- NOTE | 2022-04-09 08:11 | PCPTNOTE ---
Patient called & cancelled scheduled appointment this date due to having a tooth pulled and is in a lot of pain.
--- NOTE | 2022-04-20 08:33 | PCPTNOTE ---
Pt did not show or call for appointment this morning. HEAVY DUTY PRESS OPERATOR called and left message on pt cell phone.
--- NOTE | 2022-04-22 08:41 | PCPTNOTE ---
Patient did not show up for scheduled appointment this date. This is Pt's second N/S. Called and left voice mail for patient about missed appointment. Informed Pt of upcoming Re-eval on Tuesday, Apr 26, 2022 @ 10:30. Also informed Pt if she does not call to cancel or N/S on Tuesday, she will be discharged in accordance with our N/S policy.
--- NOTE | 2022-04-26 11:13 | PCPTNOTE ---
pt did not show for today's reeval; left voice message for her;
--- NOTE | 2022-05-10 10:35 | PCPTNOTE ---
PHYSICAL THERAPY DISCHARGE 05-10-22 Attending Provider: Ramos Colunga MD Patient:Angella Moore Date of :1960 Mrs. Moore has not returned for any further treatments since 04/15/2022, therefore she will be discharged at this time. She received 4 PT treatments for the diagnosis of cervical pain, from March 31 to April 15, then stopped attending therapy. The goals were not assessed. Thank you for referring Angella to [facility].
== END 2022-05-11 09:09 | disposition home or self-care (01) ==
LOC: ANHPT 08:45
PROVIDERS: PCP Emergency Medicine; Visit Provider Pain Medicine Interventional Pain Medicine
DX: M47.812 Spondylosis without myelopathy or radiculopathy, cervical region (principal); M47.817 Spondylosis without myelopathy or radiculopathy, lumbosacral region; M54.13 Radiculopathy, cervicothoracic region; M54.12 Radiculopathy, cervical region; M54.17 Radiculopathy, lumbosacral region
CPT/HCPCS: 97110; 97140; 97161; 99199

== ENCOUNTER 2022-05-27 12:21 | Outpatient (CLI) | payer MEDICARE, MEDICAID, SELFPAY ==
--- NOTE | ~2022-05-27 | XR_ITS ---
EXAMINATION:XR cervical spine 4-5V DATE: 05/27/2022 12:58 INDICATION: Neck pain TECHNIQUE: AP, lateral, lateral swimmers and odontoid views of the cervical spine are provided. COMPARISON: 06/23/2021 FINDINGS: There are 5 mm of anterolisthesis of C7 on T1 and 2 mm of retrolisthesis of C3 on C4. There is no fracture. There are changes of anterior fusion procedure from C4 through C7. There are changes of posterior fusion procedure from C3 through C6. There is no evidence of hardware failure or loosen ing. There are The odontoid process is intact. No fracture is identified. The vertebral body heights are normal. There is mild loss of intervertebral disc space height at C3-4. Prevertebral soft tissues are normal. IMPRESSION: 1. Moderate cervical spondylosis without acute findings or significant interval change. 2. Stable postsurgical changes of the cervical spine. Reviewed, dictated and finalized at location A. Y OPERATOR
--- NOTE | ~2022-05-27 | XR_ITS ---
EXAMINATION: XR shoulder LT min 2V INDICATION: Left shoulder pain TECHNIQUE: Four views of the left shoulder are submitted. COMPARISON: None FINDINGS: Normal alignment. No fracture. There is mild osteoarthritis of the glenohumeral and acromio clavicular joints. Soft tissues are unremarkable. IMPRESSION: 1. Mild osteoarthritis. Reviewed, dictated and finalized at location A. DYER IMPRESSION: 1. Mild osteoarthritis.
--- NOTE | ~2022-05-27 | XR_ITS ---
EXAMINATION: XR shoulder RT min 2V INDICATION: Right shoulder pain TECHNIQUE: Four views of the right shoulder are submitted. COMPARISON: None FINDINGS: Normal alignment. No fracture. There is mild osteoarthritis of the acromioclavicular and gl enohumeral joints. Soft tissues are unremarkable. IMPRESSION: 1. Mild osteoarthritis. Reviewed, dictated and finalized at location A. DRILLING ENGINEER IMPRESSION: 1. Mild osteoarthritis.
--- NOTE | ~2022-05-27 | XR_ITS ---
EXAMINATION: XR lumbar spine 2-3V DATE: 05/27/2022 12:59 INDICATION: Lumbar radiculopathy TECHNIQUE: Anteroposterior and lateral views of the lumbar spine, and cone-down lateral view of the l umbosacral junction were obtained. COMPARISON: 06/23/2021 FINDINGS: The vertebral body heights are maintained. There is no fracture. Bone alignment is normal. There is severe loss of intervertebral disc space height at L2-3 and L5-S1. There is moderate loss of intervertebral disc space height at L3-4 and L4-5. There is a severe facet joint osteoarthritis of t he lower lumbar spine. Small degenerative osteophytes project from the anterior endplates of multiple vertebral bodies. Surgical clips in the right upper quadrant are likely from prior cholecystectomy. IMPRESSION: 1. Severe lumbar spondylosis without acute findings or significant interval change. Reviewed, dictated and finalized at location A. OBIOLOGY LABORATORY MANAGER IMPRESSION: 1. Severe lumbar spondylosis without acute findings or significant interval lakhwinder nge.
== END 2022-05-27 12:22 | disposition home or self-care (01) ==
PROVIDERS: PCP Emergency Medicine; Visit Provider Pain Medicine Interventional Pain Medicine
DX: M19.011 Primary osteoarthritis, right shoulder (principal); M47.26 Other spondylosis with radiculopathy, lumbar region; M47.22 Other spondylosis with radiculopathy, cervical region
CPT/HCPCS: 72050; 72100; 73030

== ENCOUNTER 2022-09-28 22:19 | Emergency (ER) | payer MEDICARE, MEDICAID, SELFPAY ==
--- NOTE | ~2022-09-28 | XR_ITS ---
AP view of the pelvis and AP and lateral views of the bilateral hips Clinical history: Pain Findings: No acute fracture or dislocation is seen. Osseous alignment is anatomic. Bilateral hip and SI joint spaces are preserved. Soft tissues are unremarkable. Impression: No significant abnormality is seen. Reviewed, dictated and finalized at location . Impression: No significant abnormality is seen.
[2022-09-28 22:22] VITALS: BP 143/68; PULSE 99; RESP 20; TEMP 36.2; O2SAT 97
--- NOTE | 2022-09-28 23:15 | ED.GENADULT ---
HPI - General Adult General Chief complaint: Recheck/Abnormal Lab/Rx Stated complaint: skin lesions-staph? Time Seen by Provider: 09/28/22 22:31 Source: patient Mode of arrival: ambulatory Limitations: no limitations History of Present Illness HPI narrative: This is a 62-year-old female with PMH of fibromyalgia, DJD, HTN who presents to the ED with chief complaint of skin rash and musculoskeletal pain x1 week. She actually states that the rashes been evaluated by her magento web developer and has been going on for the past 3 weeks. She was given initial prescription for 10 doxycycline's and then they added another 10 recently. She states she has 7 pills left of this. She states that it is not helping her rash much. Reports lesions that pop up intermittently throughout the arms and legs and her neck. She tells me she is specifically concerned for disseminated staphylococcal infection. She states that her hips have been hurting as well as some bilateral lower extremity pain. Denies fevers, chills, nausea, vomiting, chest pain, shortness of breath, obstipation. Related Data Home Medications Medication Instructions Recorded Confirmed atorvastatin 10 mg tablet 10 mg DAILY 04/12/19 02/02/21 cyclobenzaprine 10 mg tablet 10 mg TID 04/12/19 02/02/21 duloxetine 60 mg capsule,delayed 60 mg PO DAILY 04/12/19 02/02/21 release esomeprazole magnesium 40 mg 40 mg DAILY 04/12/19 02/02/21 capsule,delayed release gabapentin 300 mg capsule 300 mg TID 04/12/19 02/02/21 losartan 50 mg-hydrochlorothiazide 1 tablet DAILY 04/12/19 02/02/21 12.5 mg tablet pregabalin 300 mg capsule (Lyrica) 300 mg DAILY 04/12/19 02/02/21 quetiapine 100 mg tablet 100 mg HS 04/12/19 02/02/21 ropinirole 2 mg tablet 2 mg DAILY 04/12/19 02/02/21 topiramate 50 mg tablet 50 mg DAILY 04/12/19 02/02/21 trazodone 50 mg tablet 50 mg DAILY 04/12/19 02/02/21 phentermine 37.5 mg disintegrating mg PO 01/27/21 02/02/21 tablet sumatriptan succinate 100 mg tablet 100 mg PO ONCE 01/27/21 02/02/21 Allergies Allergy/AdvReac Type Severity Reaction Status Date / Time Sulfa (Sulfonamide Allergy Rash Verified 09/28/22 22:51 Antibiotics) [facility] Past Medical History Medical History Barton's esophagus with esophagitis DJD (degenerative joint disease) Fibromyalgia HLD (hyperlipidemia) HTN (hypertension) Surgical History Surgical History History of fusion of cervical spine Hx of cholecystectomy Hx of hysterectomy Family History Family History Father Family history of arthritis Family history of lung cancer Family history of malignant neoplasm of urinary bladder Mother Family history of arthritis Social History Social History Smoking status: Current some day smoker Second hand tobacco smoke exposure: Yes Smoking end date: 04/11/06 Alcohol intake: never Gender identity (if verbalized by the patient): Female Exam Narrative: GENERAL: Well-appearing, well-nourished, and in no acute distress. HEAD: Normocephalic, atraumatic. EYES: PERRLA and EOMI. ENT: Nares clear, no rhinorrhea or epistaxis. Mucous membranes moist. Oropharynx without tonsillar hypertrophy exudate or other lesions. NECK: Supple. No adenopathy or masses. CHEST: No respiratory distress. Clear to auscultation. No wheezes rales or rhonchi HEART: Regular rate and rhythm. No murmur heard. Normal peripheral pulses. ABDOMEN: Soft, nontender, nondistended, normal active bowel sounds. MSK: Negative logroll of the hips bilaterally. Mild lateral tenderness bilaterally. She has tenderness throughout the muscular groups of both lower legs. SKIN: Scattered lesions throughout the upper extremities and on her back. Maculopapular and nature with a central granulation area. No a
[2022-09-29 00:28] LABS: Appearance Urine Clear (Clear); Bilirubin Urine Negative (Negative); Blood Urine Negative (Negative); Color Urine Yellow (Yellow); Glucose Urine UA Negative (Negative); Ketones Urine Negative (Negative); Leukocyte Esterase Ur Negative LEU/UL (Negative); Nitrate Urine Negative (Negative); Protein Urine Negative (Negative); Specific Grav Ur 1.007 (1.001-1.035); pH Urine 6.5 (5.0-9.0)
[2022-09-29 00:34] LABS: Add Urine Microscopic? NO
[2022-09-29 00:36] LABS: Alanine Aminotransferase 40 U/L (6-35); Albumin Level 4.2 g/dL (3.5-5.1); Alkaline Phosphatase 63 U/L (38-126); Anion Gap 5 mmol/L (8-16); Aspartate Amino Transferase 32 U/L (14-36); Basophils Percent Auto 0.4 % (0.2-1.2); Bilirubin,Total 0.3 mg/dL (0.2-1.3); Blood Urea Nitrogen 16 mg/dL (7-17); Carbon Dioxide 32 mmol/L (22-30); Chloride 104 mmol/L (98-107); Creatine Kinase 343 U/L (30-135); Eosinophils Absolute Auto 0.2 K/mm3 (0-0.3); Eosinophils Percent Auto 3.1 % (0-4.4); Estimated Glomerular Filt Rate > 60; Glucose 96 mg/dL (65-110); Hematocrit 42.8 % (37.0-47.0); Hemoglobin 13.4 g/dL (12.0-15.0); Immature Granulocyte Absolute 0.01 K/mm3 (0.00-0.031); Immature Granulocyte Percent A 0.1 % (0-0.5); Immature Platelet Fraction Pct 9.3 % (0.9-11.2); Lymphocytes Absolute Auto 2.47 K/mm3 (0.9-3.2); Lymphocytes Percent Auto 31.8 % (18.3-44.2); Mean Corpuscular HGB Conc 31.3 g/dl (32-36); Mean Corpuscular Hemoglobin 26.3 pg (26-34); Mean Corpuscular Volume 83.9 fl (80-100); Monocytes Absolute Auto 0.8 K/mm3 (0.1-0.6); Monocytes Percent Auto 10.3 % (2.6-8.5); Neutrophils Absolute Auto 4.2 K/mm3 (1.3-6.7); Neutrophils Percent Auto 54.3 % (45.5-73.1); Platelet Count Result 218 k/mm3 (150-375); Potassium 3.3 mmol/L (3.4-5.0); Red Cell Distribution Width 21.2 % (11.5-14.5); Sodium 141 mmol/L (137-145); White Blood Count 7.8 K/mm3 (4.5-10.0)
[2022-09-29] MEDS: KETOROLAC 30 MG/ML VIAL (*BKC) IM (00:51)
[2022-09-29] MEDS: HYDROcodone/acetaminophen (*CRX) 5-325 MG TABLET 1 TAB PO (00:52)
[2022-09-29 01:01] LABS: Erythrocyte Sedimentation Rate 8 mm/hr (0-20)
[2022-09-29 01:27] VITALS: BP 150/70; PULSE 93; RESP 18; O2SAT 94
== END 2022-09-29 01:36 | disposition home or self-care (01) ==
PROVIDERS: Emergency Provider Physician Assistant; PCP Emergency Medicine
DX: R21 Rash and other nonspecific skin eruption (principal); K59.00 Constipation, unspecified; I10 Essential (primary) hypertension; E78.5 Hyperlipidemia, unspecified; M79.7 Fibromyalgia; K22.70 Barrett's esophagus without dysplasia; Z87.891 Personal history of nicotine dependence; Z98.1 Arthrodesis status; Z90.49 Acquired absence of other specified parts of digestive tract; Z90.710 Acquired absence of both cervix and uterus
CPT/HCPCS: 36415; 73521; 80053; 81003; 82550; 85025; 85055; 85652; 96372; 99283; A9270; J1885

== ENCOUNTER 2022-10-19 04:27 | Day surgery (SDC) | payer MEDICARE, MEDICAID, SELFPAY ==
[2022-10-13 15:50] VITALS: BMI 29.7
[2022-10-19 09:25] VITALS: BP 112/72; PULSE 93; RESP 18; TEMP 36.3; O2SAT 97
[2022-10-19] MEDS: LACTATED RINGERS 1,000 ML 150 ML IV CONT (09:31)
--- NOTE | 2022-10-19 09:42 | WPDANESEPPF ---
Anes - Initial Pre Proc Eval Procedure: Operation Date: 10/19/22 13:15 Proposed Procedures p Esophagogastroduodenoscopy & Screening Colonoscopy - Gallo Cook MD Date/Time: 10/19/22 09:42 Surgeon: Gallo Cook MD Pre Op Diagnosis: Barretts' esophagus, dysphagia; neoplasm screening Patient Data Age: 62 Gender: F Height: 1.52 m Weight: 69.1 kg Last Vital Signs Temp 36.3 C L 10/19/22 09:25 Pulse 93 10/19/22 09:25 Resp 18 10/19/22 09:25 BP 112/72 10/19/22 09:25 Pulse Ox 97 10/19/22 09:25 O2 Del Method Room Air 10/19/22 09:25 Allergies Allergy/AdvReac Type Severity Reaction Status Date / Time Sulfa (Sulfonamide Allergy Rash Verified 10/19/22 09:22 Antibiotics) Home Medications Medication Instructions Recorded Confirmed Type atorvastatin 10 mg tablet 10 mg DAILY 04/12/19 10/13/22 History duloxetine 60 mg capsule,delayed 60 mg PO DAILY 04/12/19 10/13/22 History release esomeprazole magnesium 40 mg 40 mg DAILY 04/12/19 10/13/22 History capsule,delayed release gabapentin 300 mg capsule 300 mg TID 04/12/19 10/13/22 History losartan 50 mg-hydrochlorothiazide 1 tablet DAILY 04/12/19 10/13/22 History 12.5 mg tablet quetiapine 100 mg tablet 100 mg HS 04/12/19 10/13/22 History ropinirole 2 mg tablet 2 mg DAILY 04/12/19 10/13/22 History topiramate 50 mg tablet 50 mg DAILY 04/12/19 10/13/22 History trazodone 50 mg tablet 50 mg DAILY 04/12/19 10/13/22 History albuterol sulfate 90 mcg/actuation 1 puff inhalation Q3-4H PRN 04/29/19 10/13/22 Rx aerosol inhaler (ProAir HFA) shortness of breath or wheezing #18 grams hydrocodone 7.5 mg-acetaminophen 1 tablet PO Q6H PRN pain (scale 01/27/21 10/13/22 Rx 325 mg tablet score 7-10) #90 tabs morphine 15 mg tablet,extended 15 mg PO Q8H #90 tabs 01/27/21 10/13/22 Rx release sumatriptan succinate 100 mg tablet 100 mg PO PRN PRN Migraine Headache 01/27/21 10/13/22 History Patient hx anesthesia problems: none Family hx anesthesia problems: none Results Review: All pre-operative results and documents have been reviewed as part of the pre-operative evaluation. [facility] Past Medical History Medical History Barton's esophagus with esophagitis DJD (degenerative joint disease) Fibromyalgia HLD (hyperlipidemia) HTN (hypertension) Surgical History Surgical History History of fusion of cervical spine Hx of cholecystectomy Hx of hysterectomy Family History Family History Father Family history of arthritis Family history of lung cancer Family history of malignant neoplasm of urinary bladder Mother Family history of arthritis Social History Social History Smoking packs per day: 1 Smoking cigarettes per day: 20.0 Years smoked: 6 Smoking pack-years: 6.00 Smoking status: Current every day smoker Tobacco type: cigarettes Second hand tobacco smoke exposure: Yes Smoking end date: 04/11/06 Alcohol intake: never Substance use: current Substance use type: prescription drug Other substance usage details: morphine 15mg bid, hydrocodone 7.5/tylenol 325 prn Living arrangements: alone Gender identity (if verbalized by the patient): Female Spiritual care concerns: No Anes - Eval Final PreProcedure Day of Procedure 10/19/22 09:42 Patient weight: overweight Heart: regular rate and rhythm Lungs: clear to auscultation Airway: Mallampati scale class II and other (c-spine fusion but adequate extension) Neurological: alert and oriented Last oral intake: >/= 8 hours ASA classification: III Emergent: no Anesthetic plan: proceed Anesthesia type and monitoring: general GIVS and standard monitoring Results Review: All pre-operative results and documents have been rev
--- NOTE | 2022-10-19 09:53 | PM.HPGS ---
History of Present Illness History of Present Illness Consent: Risks, benefits, and alternatives have been discussed and questions answered. Patient agrees to proceed with procedure. Chief complaint: Barretts' esophagus, dysphagia; neoplasm screening Narrative: Angella Moore is a 62 year old female who had started taking doxycycline for skin infection then had rlq pain with radiation to her leg, CT scan showed mild thickening of esophagus (she has h/o GERD on omeprazole)- on occasions noted mild dysphagia. Her last colonoscopy few years ago. Review of Systems Constitutional: Constitutional: Denies headache(s) and Denies weakness Eyes: Eyes: Denies blurry vision ENT: Reports Normal hearing present, Denies headache(s) and Denies neck pain Cardiovascular: Cardiovascular: Denies chest pain and Denies dyspnea Respiratory: Respiratory: Denies dyspnea Gastrointestinal: Gastrointestinal: Reports no additional gastrointestinal complaints Genitourinary: Genitourinary: Denies dysuria Musculoskeletal: Musculoskeletal: Denies neck pain Integumentary/Breasts: Skin/Breast: Denies dry skin Neurologic: Reports Normal hearing present, Denies headache(s) and Denies weakness Psychiatric: Psychiatric: Denies anxiety Endocrine: Endocrine: Denies change in body appearance Hematologic/Lymphatic: Hematologic/Lymphatic: Denies easy bleeding Allergic/Immunologic: Allergic/Immunologic: Denies urticaria PMFSH Past Medical History Medical History (Updated 10/19/22 @ 09:55 by Gallo Cook MD) Abnormal CT scan, esophagus Barton's esophagus with esophagitis Colon cancer screening DJD (degenerative joint disease) Fibromyalgia GERD (gastroesophageal reflux disease) HLD (hyperlipidemia) HTN (hypertension) RLQ abdominal pain Surgical History Surgical History History of fusion of cervical spine Hx of cholecystectomy Hx of hysterectomy Family History Family History Father Family history of arthritis Family history of lung cancer Family history of malignant neoplasm of urinary bladder Mother Family history of arthritis Social History Social History Smoking packs per day: 1 Smoking cigarettes per day: 20.0 Years smoked: 6 Smoking pack-years: 6.00 Smoking status: Current every day smoker Tobacco type: cigarettes Second hand tobacco smoke exposure: Yes Smoking end date: 04/11/06 Alcohol intake: never Substance use: current Substance use type: prescription drug Other substance usage details: morphine 15mg bid, hydrocodone 7.5/tylenol 325 prn Living arrangements: alone Gender identity (if verbalized by the patient): Female Spiritual care concerns: No Meds Home Medications and Allergies Home Medications Medication Instructions Recorded Confirmed Type atorvastatin 10 mg tablet 10 mg DAILY 04/12/19 10/13/22 History duloxetine 60 mg capsule,delayed 60 mg PO DAILY 04/12/19 10/13/22 History release esomeprazole magnesium 40 mg 40 mg DAILY 04/12/19 10/13/22 History capsule,delayed release gabapentin 300 mg capsule 300 mg TID 04/12/19 10/13/22 History losartan 50 mg-hydrochlorothiazide 1 tablet DAILY 04/12/19 10/13/22 History 12.5 mg tablet quetiapine 100 mg tablet 100 mg HS 04/12/19 10/13/22 History ropinirole 2 mg tablet 2 mg DAILY 04/12/19 10/13/22 History topiramate 50 mg tablet 50 mg DAILY 04/12/19 10/13/22 History trazodone 50 mg tablet 50 mg DAILY 04/12/19 10/13/22 History albuterol sulfate 90 mcg/actuation 1 puff inhalation Q3-4H PRN 04/29/19 10/13/22 Rx aerosol inhaler (ProAir HFA) shortness of breath or wheezing #18 grams hydrocodone 7.5 mg-acetaminophen 1 tablet PO Q6H PRN pain (scale 01/27/21 10/13/22 Rx 325 mg tablet score 7-10) #90 tabs morphine 15 mg tablet,extended 15 mg PO Q8H #90 tabs
--- NOTE | 2022-10-19 10:24 | SUR.OPER ---
EGD START: 1104; END: 1009. COLONOSCOPY START: 1013; END: 1023.
[2022-10-19 10:31] VITALS: BP 112/62; PULSE 82; RESP 21; O2SAT 98
[2022-10-19 10:41] VITALS: BP 104/50; PULSE 79; RESP 22; O2SAT 97
[2022-10-19 10:51] VITALS: BP 102/70; PULSE 76; RESP 24; O2SAT 97
== END 2022-10-19 10:59 | disposition home or self-care (01) ==
PROVIDERS: PCP Emergency Medicine; Visit Provider Internal Medicine Gastroenterology
PROC: 0DJ08ZZ Inspection of Upper Intestinal Tract, Via Natural or Artificial Opening Endoscopic (ICD-10-PCS; CPT 43235; principal; 2022-10-19 13:15)
DX: Z12.11 Encounter for screening for malignant neoplasm of colon (principal); K57.30 Diverticulosis of large intestine without perforation or abscess without bleeding; K64.8 Other hemorrhoids; R10.31 Right lower quadrant pain; K44.9 Diaphragmatic hernia without obstruction or gangrene; K29.70 Gastritis, unspecified, without bleeding; K20.80 Other esophagitis without bleeding; B48.8 Other specified mycoses; D12.3 Benign neoplasm of transverse colon; I10 Essential (primary) hypertension; E78.5 Hyperlipidemia, unspecified; M79.7 Fibromyalgia; Z98.1 Arthrodesis status; F17.210 Nicotine dependence, cigarettes, uncomplicated; Z79.891 Long term (current) use of opiate analgesic; Z79.51 Long term (current) use of inhaled steroids
CPT/HCPCS: 45385; 43239; 88305; 88312; J2704; J7120

== ENCOUNTER 2023-04-15 07:56 | Outpatient (CLI) | payer MEDICARE, MEDICAID, SELFPAY ==
--- NOTE | ~2023-04-15 | CT_ITS ---
CT Scan of the Chest without Contrast: Clinical Indication: Lung cancer screening, smoking history Technique: Contiguous sections were acquired throughout the chest without intravenous contrast. Dose reduction technique was used on this scan by utilizing automated exposure control and iterative recon struction technique. The dose-length product (DLP) was 79.57 mGy-cm. COMPARISON: 12/07/2021 Findings: There is no evidence of any significant mediastinal, hilar or axillary lymphadenopathy. The mediastin al soft tissues appear normal. There is no evidence of pleural or pericardial effusion. The lungs are clear. No pulmonary nodules or infiltrates are noted. Images through the upper abdomen reveal no abnormalities. Stable anterolisthesis of C7 over T1 with c ervical spinal fixation hardware partially imaged. Impression: Lung RADS 1: Negative. 12 month follow-up screening CT advised. Reviewed, dictated and finalized at [facility]. GATION MANAGER Impression: Lung RADS 1: Negative. 12 month follow-up screening CT advised.
== END 2023-04-15 07:57 | disposition home or self-care (01) ==
LOC: ANHIMG 08:00
PROVIDERS: PCP Emergency Medicine; Visit Provider Emergency Medicine
DX: Z12.2 Encounter for screening for malignant neoplasm of respiratory organs (principal); Z87.891 Personal history of nicotine dependence
CPT/HCPCS: 71271

== ENCOUNTER 2023-04-21 08:28 | Outpatient (CLI) | payer MEDICARE, MEDICAID, SELFPAY ==
--- NOTE | ~2023-04-21 | NM_ITS ---
EXAM: NM gastric emptying study DATE: 04/21/2023 13:25 INDICATION: Gastroparesis TECHNIQUE: A gastric emptying study was performed using the methodology of Cynthia ECHEVERRIA, et al. J Nucl Med 2007; 48:568-572. The patient was given a meal consisting of 2 scrambled eggs labeled with 1.01 mCi Tc-99m sulfur colloid, 2 slices of toast, two packages of jam, and approximately 120 mL of water. Simultaneous anterior and posterior 1-min images of the abdomen were obtained with the patient supin e at multiple time points over a total period of 4 hours. The geometric mean of anterior and posterio r views was determined, and the percentage retention was calculated for each time point. COMPARISON: None. FINDINGS: Gastric retention of the radiotracer-labeled meal was 61%, 24%, and 2% at the 1-hour, 2-hour, and 4-h our time points, respectively. With this technique, apparent rapid gastric emptying is suggested by < 30% gastric retention at 1 hour. Delayed gastric emptying is defined by gastric retention of >90% at 1 hour, >60% retention at 2 hours, or >10% retention at 4 hours. IMPRESSION: 1. Normal gastric emptying. Reviewed, dictated and finalized at location A. MAN IMPRESSION: 1. Normal gastric emptying.
== END 2023-04-21 08:29 | disposition home or self-care (01) ==
PROVIDERS: PCP Emergency Medicine; Visit Provider Emergency Medicine
DX: K31.84 Gastroparesis (principal)
CPT/HCPCS: 78264; A9541

== ENCOUNTER 2023-05-03 17:20 | Emergency (ER) | payer MEDICARE, MEDICAID, SELFPAY ==
[2023-05-03 17:29] VITALS: BP 133/65; PULSE 83; RESP 20; TEMP 36.4; O2SAT 100
--- NOTE | 2023-05-03 22:43 | PC.NURSE ---
first call to go to room at 2133, no answer second call to go to room 2242, no answer
== END 2023-05-03 22:43 | disposition left against medical advice (07) ==
PROVIDERS: PCP Emergency Medicine
DX: M79.601 Pain in right arm (principal)
CPT/HCPCS: 99199

== ENCOUNTER 2023-05-10 08:49 | Outpatient (CLI) | payer MEDICARE, MEDICAID, SELFPAY ==
--- NOTE | ~2023-05-10 | US_ITS ---
EXAMINATION: US venous doppler UE RT DATE: 05/10/2023 09:52 INDICATION: PAIN IN RIGHT UPPER ARM . TECHNIQUE: Grayscale ultrasound images without and with compression and Doppler ultrasound images of the right upper extremity veins were obtained. COMPARISON: None. FINDINGS: The visualized portions of the right internal jugular vein, subclavian vein, axillary vein, brachial veins, basilic vein, cephalic vein, radial vein, and ulnar vein are patent. IMPRESSION: No deep venous thrombosis. Reviewed, dictated and finalized at location K. EEN ATTENDANT IMPRESSION: No deep venous thrombosis.
== END 2023-05-10 08:50 | disposition home or self-care (01) ==
LOC: ANHIMG 08:51
PROVIDERS: PCP Emergency Medicine; Visit Provider Emergency Medicine
DX: M79.621 Pain in right upper arm (principal)
CPT/HCPCS: 93971

== ENCOUNTER 2023-06-02 10:02 | Outpatient (CLI) | payer MEDICARE, MEDICAID, SELFPAY ==
--- NOTE | ~2023-06-02 | XR_ITS ---
Lumbosacral Spine: AP and lateral views Clinical History: Pain Findings: The normal lordotic curve is maintained. No fracture or dislocation. There is moderate dege nerative disc narrowing at L3-L4, L4-L5, L5-S1, with moderate facet arthropathy results. The sacroili ac joints are normally outlined. Impression: [id number] degenerative spondylosis of the lower lumbar spine, as detailed above. Reviewed, dictated and finalized at location M. ER CHIEF DELIVERY Impression: [id number] degenerative spondylosis of the lower lumbar spine, as detaile d above.
--- NOTE | ~2023-06-02 | XR_ITS ---
Left Shoulder Technique: AP and scapular Y views were obtained. Clinical History: Pain Findings: No fracture or dislocation is seen. Osseous alignment is anatomic. The glenohumeral and acr omioclavicular joint spaces are preserved. Soft tissues are unremarkable. Impression: Unremarkable left shoulder radiographs. Reviewed, dictated and finalized at [facility]. R BEAM TRIM OPERATOR Impression: Unremarkable left shoulder radiographs.
--- NOTE | ~2023-06-02 | XR_ITS ---
Right Shoulder Technique: AP and scapular Y views were obtained. Clinical History: Pain Findings: No fracture or dislocation is seen. Osseous alignment is anatomic. There is mild AC joint d egenerative change. Glenohumeral joint intact. Soft tissues are unremarkable. Impression: Mild AC joint degenerative change. Reviewed, dictated and finalized at [facility]. KERER HAND Impression: Mild AC joint degenerative change.
--- NOTE | ~2023-06-02 | XR_ITS ---
Cervical Spine: AP, lateral, open-mouth views Clinical History: Radiculopathy COMPARISON: 05/27/2022 Findings: The normal lordotic curve is maintained. No acute fracture. There is 8mm anterolisthesis of C7 over T1.. Stable anterior fusion from C5 to C7. Stable posterior fusion from C3 through C6. There is advanced degenerative disc narrowing at C3-C4 and C7-T1. There is mild degenerative disc narrowin g at C2-C3. Pre-vertebral soft tissues are unremarkable. Impression: Stable anterior and posterior fusion in the cervical spine, as above. 8 mm anterolisthesis of C7 over T1, unchanged. Degenerative disc change, as above. Reviewed, dictated and finalized at [facility]. ERS AND ACQUISITIONS ASSOCIATE Impression: Stable anterior and posterior fusion in the cervical spine, as above. 8 mm anterolisthesis of C7 over T1, unchanged. Degenerative disc change, as above.
== END 2023-06-02 10:03 | disposition home or self-care (01) ==
LOC: ANHIMG 10:09
PROVIDERS: PCP Emergency Medicine; Visit Provider Pain Medicine Interventional Pain Medicine
DX: M19.011 Primary osteoarthritis, right shoulder (principal); M25.512 Pain in left shoulder; M47.896 Other spondylosis, lumbar region; M43.22 Fusion of spine, cervical region; M43.13 Spondylolisthesis, cervicothoracic region
CPT/HCPCS: 72040; 72100; 73030

== ENCOUNTER 2023-08-02 10:44 | Outpatient (CLI) | payer MEDICARE, MEDICAID, SELFPAY ==
--- NOTE | ~2023-08-02 | CT_ITS ---
EXAMINATION: CTA brain DATE: 08/02/2023 11:13 INDICATION: Cerebral aneurysm. TECHNIQUE: Computed tomographic angiography (CTA) of the head was performed without and with 100 mL O mnipaque-350 intravenous contrast. Automated exposure control and iterative reconstruction technique were employed. The dose-length product was 1097.18 mGy-cm. Maximum intensity projection 3D reconstru ctions were created. Volume-rendered 3D reconstructions of the intracranial arteries were created by the technologist on a separate workstation. COMPARISON: None. FINDINGS: There is no intracranial hemorrhage, acute infarction, or abnormal intracranial mass lesion . The ventricles are normal in size. The paranasal sinuses are clear. The mastoid air cells are de l. The orbits are normal. Left vertebral artery is dominant. There is no significant stenosis of basi lar artery or the posterior cerebral arteries. There is no significant stenosis of the intracranial i nternal carotid arteries or anterior or middle cerebral arteries. Anterior communicating artery is no rmal. The posterior communicating arteries are normal. There is no aneurysm. IMPRESSION: 1. No aneurysm. Reviewed, dictated and finalized at location E. IMPRESSION: 1. No aneurysm.
[2023-08-02 11:10] LABS: Estimated Glomerular Filt Rate > 60
== END 2023-08-02 10:45 | disposition home or self-care (01) ==
LOC: ANHIMG 10:47
PROVIDERS: PCP Emergency Medicine; Visit Provider Emergency Medicine
DX: I67.1 Cerebral aneurysm, nonruptured (principal)
CPT/HCPCS: 70496; Q9967

== ENCOUNTER 2023-09-29 13:54 | Outpatient (CLI) | payer MEDICARE, MEDICAID, SELFPAY ==
--- NOTE | ~2023-09-29 | MM_ITS ---
EXAMINATION: MM screening iris BI w estrada HISTORY: Screening TECHNIQUE: Craniocaudal and mediolateral oblique 3-D tomosynthesis images were obtained and synthetic 2-D images were generated. CAD analysis was submitted and interpreted. COMPARISON: Comparison to multiple prior studies sequentially, with oldest reviewed study dated 11/23. BREAST PARENCHYMAL COMPOSITION: There are scattered areas of fibroglandular density. FINDINGS: There is no evidence of suspicious mass, calcification, or architectural distortion to sugg est malignancy in either breast. There has been no suspicious interval change. IMPRESSION: 1. No mammographic evidence of malignancy. 2. Recommend routine screening mammography in one year. BI-RADS Category 1: Negative Reviewed, dictated and finalized at location B.
--- NOTE | ~2023-09-29 | DEXA_ITS ---
Bone Density Report Name: MOOK ZHAO Age: 63 Sex: Female Ethnicity: White Date of : 1960 Indication: postmenopausal; screening for osteoporosis; history of glucocorticoids; hysterectomy; Referring Provider: WARREN LANGLEY Study: Bone densitometry was performed. Exam Date: September 29, 2023 Accession number: [id number] Bone Density: Region BMD T-score Z-score Classification AP Spine(L1-L4) 1.137 0.8 2.5 Normal Femoral Neck (Left) 0.754 -0.9 0.6 Normal Total Hip (Left) 0.990 0.4 1.6 Normal Femoral Neck (Right) 0.753 -0.9 0.6 Normal Total Hip (Right) 0.957 0.1 1.3 Normal Total Hip Mean 0.973 0.3 1.5 Normal World Health Organization criteria for BMD impression classify patients as: Normal (T-score at or above -1.0), Osteopenia (T-score between -1.0 and -2.5), or Osteoporosis (T-score at or below -2.5). 10-year Fracture Risk: FRAX not reported because: All T-scores for Spine Total, Hip Total, Femoral Neck at or above -1.0 Clinical Information Provided by Patient: Smokes Has taken Glucocorticoids Has the following medical conditions: Hysterectomy Patient maximum height was 59.0 Menopause Age: 45 No regular weight bearing exercise Does not regularly consume dairy products Drinks caffeinated beverages Onset of menses at age 11 Number of children 2 Impression: The patient has normal bone mass. The patient has risk factors, including: smoking, history of glucocorticoid therapy. Discussion: BONE DENSITY IS ABOVE THE MINIMUM DESIRABLE LEVEL AT ALL SKELETAL SITES TESTED. This patient?s bone mineral density is above the minimum desirable level (T-score -1.0 or better) at all sites measured. The patient should follow a healthful lifestyle (good nutrition with adequate calcium and vitamin D, and appropriate weight-bearing exercise). Follow-Up: Consider repeating this study in 5 years or sooner if there is some new clinical indication. Reported by: SANDEEP on 10/04/2023 11:49:00 AM. Reviewed, dictated and finalized at location A. [facility]
== END 2023-09-29 13:55 | disposition home or self-care (01) ==
LOC: ANHIMG 13:55
PROVIDERS: PCP Emergency Medicine; Visit Provider Emergency Medicine
DX: Z12.31 Encounter for screening mammogram for malignant neoplasm of breast (principal); Z78.0 Asymptomatic menopausal state
CPT/HCPCS: 77063; 77067; 77080

== ENCOUNTER 2024-05-22 09:29 | Outpatient (CLI) | payer MEDICARE, MEDICAID, SELFPAY ==
--- NOTE | ~2024-05-22 | XR_ITS ---
EXAMINATION:XR cervical spine 4-5V DATE: 05/22/2024 10:18 INDICATION: Cervical radiculopathy. Bilateral shoulder pain. TECHNIQUE: AP, lateral, lateral swimmers and odontoid views of the cervical spine are provided. COMPARISON: 06/02/2023 FINDINGS: C3-C6 laminectomies. C3-C6 instrumented posterior spinal fusion with bilateral vertical evette and later al mass screw fixation. C3-C6 anterior spinal fusion with interbody bone graft cage at C3-C4 and ante rior plate and screw fixation at C4-C6. There is 2 mm retrolisthesis C3 respect both C2 and C4. 9 mm anterolisthesis C7 on T1. Odontoid is intact. Moderate atlantoaxial osteoarthritis. Unfused vertebral body heights are normal. Moderate disc height loss at C3-C4 and mild disc height loss at C7-T1. Mode rate multilevel disc height loss in the visualized upper thoracic spine. Prevertebral soft tissues a re normal. IMPRESSION: 1. Stable appearance of instrumented C3-C6 posterior spinal fusion and instrumented C4-C7 anterior sp inal fusion. 2. No significant change in a 9 mm anterolisthesis C7 on T1. 3. Moderate cervical and upper thoracic spondylosis. Reviewed, dictated and finalized at location A. ON PI[employer] CAMERAMAN IMPRESSION: 1. Stable appearance of instrumented C3-C6 posterior spinal fusion and instrume nted C4-C7 anterior spinal fusion. 2. No significant change in a 9 mm anterolisthesis C7 on T1. 3. Moderate cervical and upper thoracic spondylosis.
--- NOTE | ~2024-05-22 | XR_ITS ---
Lumbosacral Spine: AP and lateral views Clinical History: Pain Findings: The normal lordotic curve is maintained. No fracture or subluxation. There is moderate to a dvanced degenerative disc narrowing from L2 through S1. There is moderate facet arthropathy. The sacr oiliac joints are normally outlined. Impression: Moderate degenerative spondylosis overall, as detailed above. Reviewed, dictated and finalized at location . OAT ENGINEER Impression: Moderate degenerative spondylosis overall, as detailed above.
--- NOTE | ~2024-05-22 | XR_ITS ---
EXAMINATION: XR shoulder LT min 2V DATE: 05/22/2024 10:19 INDICATION: Left shoulder pain TECHNIQUE: AP internally and externally rotated, AP oblique externally rotated and axillary views of the left shoulder were obtained. COMPARISON: 06/02/2023 FINDINGS: Normal alignment. No fracture. Glenohumeral joint is normal. Mild left acromioclavicular osteoarthri tis. Expected anterior and posterior spinal fusion in the cervical spine. Soft tissues are unremarkab le. IMPRESSION: Mild left acromioclavicular osteoarthritis. Reviewed, dictated and finalized at location A. IFIED MEDICAL TRANSCRIPTIONIST
--- NOTE | ~2024-05-22 | XR_ITS ---
EXAMINATION: XR shoulder RT min 2V DATE: 05/22/2024 10:18 INDICATION: Right shoulder pain TECHNIQUE: AP internally and externally rotated, AP oblique externally rotated and axillary views of the right shoulder were obtained. COMPARISON: 06/02/2023 FINDINGS: Normal alignment. No fracture. Glenohumeral joint is normal. Mild acromioclavicular osteoarthritis. Soft tissues are unremarkable. IMPRESSION: Unchanged mild right acromioclavicular osteoarthritis. Reviewed, dictated and finalized at location A. ITY DIRECTOR
--- OUTSIDE RECORDS SUMMARY | 2024-05-22 10:26 | XMS_ITS ---
Author Organization [facility] fran Address [address] [place] [address] Care Team Providers Care Wallboard Worker Name Role Phone Elmira Munoz Unavailable [phone] REASON FOR VISIT +RENUKA Encounters Encounter Location Date Provider Diagnosis [facility] [address] [place] [address] 05/06/2023 Elmira Munoz Plan Of Treatment No Information Progress Notes * Gopal MOOREaDOB:1960 (63 yo F)Acc No.[id number]:05/06/2023 Progress Notes Patient: Angella RUIZ Provider: Donny MUNOZ MD :1960 A ge:62 Y S ex:Female Date:05/06/2023 Address:[address] [place] [address], [address], [place] [address] Subjective: * Chief Complaints: * 1 . +RENUKA. * Medical History: Objective: * Vitals: Assessment: Plan: * Treatment: * Billing Information: * Visit Code: * Procedure Codes: * Electronic signature of Elmira Munoz MD on 05/22/2024 at 10:25 AM DOCTOR OF OSTEOPATHY Sign off status: Pending * Provider: Donny MUNOZ MD Date: 0 05/06/2023 Generated for Fidel gorman/Juhi/Lisaitting on: 0 05/22/2024 10:25 AM DOCTOR OF OSTEOPATHY
--- OUTSIDE RECORDS SUMMARY | 2024-05-22 10:26 | XMS_ITS | Continuity of Care Document ---
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 Name Role Phone Panchito Ferraro MD Unavailable Unavailable Allergies, Adverse Reactions, Alerts Substance Reaction Status Criticality No Known Allergies Active No Inform ation Medications Medication Instructions Dosage Effective Dates (start - stop) Status Comments Ajovy 225 mg/1.5 mL subcutaneous auto-injector inject (225MG) by subcutaneous route every month in the abdomen, thigh, or upper arm 225 MG - Active Imitrex 100 mg tablet take 1 tablet by oral route as needed 100 MG - Active PRN for headahce Take one at onset of headache, may repeat x one in two hours, max 2/24 hours ropinirole 2 mg tablet take 1 tablet by oral route every bedtime 2 MG - Active Lipitor 10 mg tablet take 1 tablet by oral route every day 10 MG - Active albuterol sulfate HFA 90 mcg/actuation aerosol inhaler inhale 1 puff by inhalation route every 4 - 6 hours as needed as needed 1 puff - Active PRN for sob losartan 50 mg-hydrochlorothiaz reji 12.5 mg tablet take 1 tablet by oral route every day 1.00 tablet - Active Topamax 100 mg tablet take 1 Tablet by oral route 2 times every day 100 MG - Active omeprazole 20 mg capsule,delayed release take 1 capsule by oral route every day before a meal 20 MG - Active Pepcid 40 mg tablet take 1 tablet by oral route every day 40 MG - Active dicyclomine 20 mg tablet take 1 tablet by oral route 3 times every day 20 MG - Active trazodone 100 mg tablet take 1 tablet by oral route every bedtime after meals 100 MG - Active morphine 15 mg immediate release tablet take 1 tablet by oral route 3 times every day as needed 15 MG - Active Beaver 5 mg-325 mg tablet take 1 tablet by oral route every 6 hours as needed for pain as needed - Active Cymbalta 30 mg capsule,delayed release take 1 capsule by oral route every day 30 MG - Active Procedures Procedure Date OFFICE/OUTPATIENT VISIT, EST OFFICE/OUTPATIENT VISIT, EST OFFICE/OUTPATIENT VISIT, EST OFFICE/OUTPATIENT VISIT, EST OFFICE/OUTPATIENT VISIT, EST OFFICE/OUTPATIENT VISIT, EST OFFICE/OUTPATIENT VISIT, EST OFFICE/OUTPATIENT VISIT, EST OFFICE/OUTPATIENT VISIT, EST OFFICE/OUTPATIENT VISIT, EST OFFICE/OUTPATIENT VISIT, EST OFFICE/OUTPATIENT VISIT, EST OFFICE/OUTPATIENT VISIT, EST OFFICE/OUTPATIENT VISIT, EST OFFICE/OUTPATIENT VISIT, EST PREV VISIT, EST, AGE 40-64 OFFICE/OUTPATIENT VISIT, EST OFFICE/OUTPATIENT VISIT, EST OFFICE/OUTPATIENT VISIT, EST OFFICE/OUTPATIENT VISIT, EST OFFICE/OUTPATIENT VISIT, EST OFFICE/OUTPATIENT VISIT, EST OFFICE/OUTPATIENT VISIT, EST OFFICE/OUTPATIENT VISIT, EST PREV VISIT, EST, AGE 40-64 OFFICE/OUTPATIENT VISIT, EST OFFICE/OUTPATIENT VISIT, EST OFFICE/OUTPATIENT VISIT, EST OFFICE/OUTPATIENT VISIT, EST OFFICE/OUTPATIENT VISIT, EST OFFICE/OUTPATIENT VISIT, EST OFFICE/OUTPATIENT VISIT, EST OFFICE/OUTPATIENT VISIT, EST OFFICE/OUTPATIENT VISIT, EST OFFICE/OUTPATIENT VISIT, EST OFFICE/OUTPATIENT VISIT, EST PREV VISIT, EST, AGE 40-64 OFFICE/OUTPATIENT VISIT, EST OFFICE/OUTPATIENT VISIT, EST OFFICE/OUTPATIENT VISIT, EST OFFICE/OUTPATIENT VISIT, EST OFFICE/OUTPATIENT VISIT, EST OFFICE/OUTPATIENT VISIT, EST OFFICE/OUTPATIENT VISIT, EST PREV VISIT, EST, AGE 40-64 OFFICE/OUTPATIENT VISIT, EST OFFICE/OUTPATIENT VISIT, EST OFFICE/OUTPATIENT VISIT, EST PREV VISIT, EST, AGE 40-64 OFFICE/OUTPATIENT VISIT, EST OFFICE/OUTPATIENT VISIT, EST OFFICE/OUTPATIENT VISIT, EST OFFICE/OUTPATIENT VISIT, EST PREV VISIT, EST, AGE 40-64 OFFICE/OUTPATIENT VISIT, EST OFFICE/OUTPATIENT VISIT, EST OFFICE/OUTPATIENT VISIT, EST OFFICE/OUTPATIENT VISIT, EST OFFICE/OUTPATIENT VISIT, EST OFFICE/OUTPATIENT VISIT, EST OFFICE/OUTPATIENT VISIT, EST PREV VISIT, NEW, AGE 40-64 OFFICE/OUTPATIENT VISIT, NEW Advance Directives Directive Yes / No Effective Date File Name No Information Encounters Encounter Description Practice Location Reason(s) For Visit Diagnoses Date Provider Providers Copied on Encounter [facility], [address] [place], [address], tel:[phone] [facility] No Information 4 Ronan Flanagan. [address] [place], [address] , [place]. tel:[phone] OFFICE/OUTPA TIENT VISIT, [facility], [address] [place], [address], [place] tel:[phone] [facility] migraine1 (chief complaint) Migraine without aura, not intractable, without status migrainosus Dec- 4 Ronan Panchito. [address], [place], [place], [address] , [place]. [phone] OFFICE/OUTPA TIENT VISIT, [facility], [address] [place], [address], [place] [phone] [facility] RLS (chief complaint) HLP (chief complaint) migraine1 (chief complaint) sob (chief complaint) Mixed hyperlipidemiaRestl ess legs syndromeCentrilobul ar emphysemaMigraine without aura, not intractable, without status migrainosusEncntr screen mammogram for malignant neoplasm of breastOther specified disorder of bone density 4 Ronan Flanagan. [address], [place], [place], [address] , [place]. tel:[phone] OFFICE/OUTPA TIENT VISIT, [facility], [address] [place], [address], [place] [phone] [facility] bone1 (chief complaint) HTN (chief complaint) arm pain1 (chief complaint) hand pain1 (chief complaint) weight loss1 (chief complaint) Cerebral aneurysmEssential (primary) hypertensionPrimary osteoarthritis of rt handAbnormal weight lossOther specified disorder of bone densityEncntr screen mammogram for malignant neoplasm of breastPain in right shoulder 4 Ronan Flanagan. [address], [place], [place], [address] , [place]. [phone] OFFICE/OUTPA TIENT VISIT, [facility], [address] [place], [address], [place] tel:[phone] [facility] aneurysm1 (chief complaint) Renuka (chief complaint) Raised antibody titerOther specified disorder of bone densityCerebral aneurysm 4 Ronan Russell [address], [place], [place], [address] , [place]. tel:[phone] OFFICE/OUTPA TIENT VISIT, [facility], [address] [place], [address], [place] [phone] [facility] arm pain1 (chief complaint) migraine1 (chief complaint) Migraine w/o aura, not intractable, w/o status migrainosusPain in right upper arm 4 Ronan Flanagan. [address], [place], [place], [address] , [place]. tel:[phone] OFFICE/OUTPA TIENT VISIT, [facility], [address] [place], [address], [place] tel:[phone] [facility] bicep pain1 (chief complaint) RENUKA (chief complaint) globulin1 (chief complaint) abd pain (chief complaint) Pain in right upper armRaised antibody titerAbnormality of globulinGeneralized abdominal painTobacco use 4 Ronan Russell [address], [place], [place], [address] , [place]. [phone] OFFICE/OUTPA TIENT VISIT, [facility], [address] [place], [address], [place] tel:[phone] [facility] calcium1 (chief complaint) LFT (chief complaint) protein1 (chief complaint) RENUKA (chief complaint) weight loss1 (chief complaint) Abnormality of globulinHypocalcemi aLiver diseaseRaised antibody titerAbnormal weight loss 4 Ronan Flanagan. [address], [place], [place], [address] , [place]. tel:[phone] OFFICE/OUTPA TIENT VISIT, [facility], [address] [place], [address], [place] tel:[phone] [facility] abd pain1 (chief complaint) calcium (chief complaint) LFT (chief complaint) rash1 (chief complaint) Tobacco useHypocalcemiaAbno rmality of globulinLiver disease, unspecifiedGastropa resisRashCandidal esophagitisInconclu sive mammogramOther specified disorder of bone density 3 Ronan Russell [address], [place], [place], [address] , [place]. tel:[phone] OFFICE/OUTPA TIENT VISIT, [facility], [address], [place], [place], [address], [place] tel:[phone] [facility] RLS (chief complaint) HLP (chief complaint) abd pain1 (chief complaint) GERD1 (chief complaint) GastroparesisCandid al esophagitisRestless Legs SyndromeMixed hyperlipidemia 3 Ronan Russell [address], [place], [place], [address] , [place]. tel:[phone] OFFICE/OUTPA TIENT VISIT, [facility], [address], [place], [place], [address], [place] tel:[phone] [facility] skin (chief complaint) migraine1 (chief complaint) sleep apnea1 (chief complaint) Primary central sleep apneaCandidal esophagitisOther specified dermatitisMigraine without aura, not intractable, without status migrainosus 3 Ronan Russell [address], [place], [place], [address] , [place]. tel:[phone] OFFICE/OUTPA TIENT VISIT, [facility], [address], [place], [place], [address], [place] tel:[phone] [facility] barrett1 (chief complaint) colon polyp1 (chief complaint) skin (chief complaint) Lawson's esophagus without dysplasiaPolyp of colonRashLower abdominal pain 3 Ronan Flanagan. [address], [place], [place], [address] , [place]. tel:[phone] OFFICE/OUTPA TIENT VISIT, EST [facility], [address], [place], [place], [address], [place] tel:[phone] [facility] abd pain1 (chief complaint) skin (chief complaint) Lawson's esophagus without dysplasiaPain in right hipLower abdominal painRash 3 Ronan Panchito. [address], [place], [place], [address] , [place]. tel:[phone] OFFICE/OUTPA TIENT VISIT, EST [facility], [address], [place], [place], [address], [place] tel:[phone] [facility] HTN (chief complaint) rash1 (chief complaint) skin lesion1 (chief complaint) Essential (primary) hypertensionFormica tionOther specified disorder of bone density 3 Ronan Flanagan. [address], [place], [place], [address] , [place]. tel:[phone] OFFICE/OUTPA TIENT VISIT, [facility], [address], [place], [place], [address], [place] tel:[phone] [facility] sleep apnea1 (chief complaint) tension1 (chief complaint) iron (chief complaint) Primary central sleep apneaTension headacheOther specified dermatitisIron deficiency 3 Ronan Flanagan. [address], [place], [place], [address] , [place]. tel:[phone] OFFICE/OUTPA TIENT VISIT, EST [facility], [address], [place], [place], [address], [place] tel:[phone] [facility] sleep apnea1 (chief complaint) itch (chief complaint) b12 (chief complaint) swelling1 (chief complaint) Primary central sleep apneaItchTension headacheOther abnormality of red blood cells 3 Ronan Panchito. [address], [place], [place], [address] , [place]. tel:[phone] PREV VISIT, EST, AGE 40-64 [facility], [address], [place], [place], [address], [place] tel:[phone] [facility] rbc (chief complaint) albumin1 (chief complaint) fatigue (chief complaint) alopecia1 (chief complaint) physical (chief complaint) AlopeciaFatiguePrim boston central sleep apneaAbnormality of albuminOther abnormality of red blood cellsEncounter for general adult medical exam w abnormal findingsRestless legs syndromeMixed hyperlipidemiaEssen tial (primary) hypertension 3 Ronan Panchito. [address], [address], [place], [place], [address] , [place]. tel:[phone] OFFICE/OUTPA TIENT VISIT, EST [facility], [address], [place], [place], [address], [place] tel:[phone] [facility] HLP (chief complaint) migraine1 (chief complaint) alopecia1 (chief complaint) RLS1 (chief complaint) Restless legs syndromeTobacco useAlopeciaMigraine without aura, not intractable, without status migrainosusMixed hyperlipidemiaVitam in D deficiency, unspecified 3 Ferraro Panchito. [address], [place], [place], [address] , [place]. tel:[phone] OFFICE/OUTPA TIENT VISIT, EST [facility], [address], [place], [place], [address], [place] tel:[phone] [facility] paresthesi a1 (chief complaint) Atypical facial painNevus, non-neoplasticPares thesia of skin 2 Ferraro Panchito. [address], [place], [place], [address] , [place]. tel:[phone] OFFICE/OUTPA TIENT VISIT, EST [facility], [address], [place], [place], [address], [place] tel:[phone] [facility] HTN (chief complaint) RLS (chief complaint) tobacco1 (chief complaint) Essential (primary) hypertensionRestles s legs syndromeTobacco useEncounter for other screening for malignant neoplasm of breast 2 Ferraro Panchito. [address], [place], [place], [address] , [place]. tel:[phone] OFFICE/OUTPA TIENT VISIT, [facility], [address], [place], [place], [address], [place] tel:[phone] [facility] bug bite1 (chief complaint) Delusional disordersDisorder of the skin and subcutaneous tissue, unspecified 2 Ferraro Panchito. [address], [place], [place], [address] , [place]. tel:[phone] OFFICE/OUTPA TIENT VISIT, [facility], [address], [place], [place], [address], [place] tel:[phone] [facility] bug bite1 (chief complaint) Non-pressure chronic ulcer of skin of other site 2 Ferraro Panchito. [address], [place], [place], [address] , [place]. tel:[phone] OFFICE/OUTPA TIENT VISIT, [facility], [address], [place], [place], [address], [place] tel:[phone] [facility] skin infection1 (chief complaint) Cellulitis of chest wall 2 Ferraro Panchito. [address], [place], [place], [address] , [place]. tel:[phone] OFFICE/OUTPA TIENT VISIT, [facility], [address], [place], [place], [address], [place] tel:[phone] [facility] bug bite1 (chief complaint) Cellulitis of abdominal wall 2 Ferraro Panchito. [address], [address], [place], [place], [address] , [place]. tel:[phone] PREV VISIT, EST, AGE 40-64 [facility], [address], [place], [place], [address], [place] tel:[phone] [facility] physical (chief complaint) Syncope and collapseEssential (primary) hypertensionGERD w/o esophagitisMigraine HyperlipidemiaRestl ess legs syndromeEncounter for general adult medical exam w abnormal findingsChronic pain syndrome 2 Ronan Russell [address], [address], [place], [place], [address] , [place]. [phone] OFFICE/OUTPA TIENT VISIT, [facility], [address], [place], [place], [address], [place] tel:[phone] [facility] fell1 (chief complaint) leg pain1 (chief complaint) Lumbago with sciatica, left sideSyncope and collapseEssential (primary) hypertension 1 Ronan Russell [address], [address], [place], [place], [address] , [place]. tel:[phone] OFFICE/OUTPA TIENT VISIT, [facility], [address], [place], [place], [address], [place] tel:[phone] [facility] syncope1 (chief complaint) vision1 (chief complaint) Memory lossOther visual disturbancesSyncope and collapse 1 Ronan Russell [address], [address], [place], [place], [address] , [place]. tel:[phone] OFFICE/OUTPA TIENT VISIT, [facility], [address], [address], [place] tel:[phone] [facility] head injury1 (chief complaint) Rhinorrhea due to spontaneous CSF leakOther visual disturbancesMemory lossEncounter for oth screening for malignant neoplasm of breast 1 Ronan Russell [address], [place], [place], [address] , [place]. tel:[phone] OFFICE/OUTPA TIENT VISIT, [facility], [address], [address], [place] tel:[phone] [facility] weight1 (chief complaint) Abnormal weight loss 1 Ronan Russell [address], [place], [place], [address] , [place]. tel:[phone] OFFICE/OUTPA TIENT VISIT, [facility], [address], [place], [place], [address], [place] tel:[phone] [facility] weight1 (chief complaint) Barrett1 (chief complaint) GERD w/o esophagitisAbnormal weight loss 1 Ronan Russell [address], [place], [place], [address] , [place]. tel:[phone] OFFICE/OUTPA TIENT VISIT, EST [facility], [address], [place], [place], [address], [place] tel:[phone] [facility] headache1 (chief complaint) gait issue1 (chief complaint) weight gain1 (chief complaint) MigraineAbnormaliti es of gaitOther spondylosis, lumbar regionAbnormal weight gain 1 Ronan Russell [address], [place], [place], [address] , [place]. tel:[phone] OFFICE/OUTPA TIENT VISIT, [facility], [address], [place], [place], [address], [place] tel:[phone] [facility] migraine1 (chief complaint) HTN (chief complaint) back pain1 (chief complaint) asthma1 (chief complaint) MigraineEssential (primary) hypertensionAsthmaC hronic pain syndromeEncounter for oth screening for malignant neoplasm of breast 1 Ronan Russell [address], [place], [place], [address] , [place]. tel:[phone] OFFICE/OUTPA TIENT VISIT, [facility], [address], [place], [place], [address], [place] tel:[phone] [facility] headache1 (chief complaint) HTN (chief complaint) MigraineEssential (primary) hypertensionVisual disturbance 1 Ronan Russell [address], [place], [place], [address] , [place]. tel:[phone] OFFICE/OUTPA TIENT VISIT, EST [facility], [address], [place], [place], [address], [place] tel:[phone] [facility] migraine1 (chief complaint) taste change1 (chief complaint) tobacco1 (chief complaint) Disturbance of tasteMigraineTobacc o use 1 Ronan Flanagan. [address], [place], [place], [address] , [place]. [phone] OFFICE/OUTPA TIENT VISIT, EST [facility], [address] [place], [address], [place] tel:[phone] [facility] salty taste1 (chief complaint) migraine1 (chief complaint) Disturbance of tasteBarrett's esophagus without dysplasiaMigraineEn counter for oth screening for malignant neoplasm of breastTobacco use 1 Ronan Flanagan. [address], [place], [place], [address] , [place]. [phone] PREV VISIT, EST, AGE 40-64 [facility], [address], [place], [place], [address], [place] tel:[phone] [facility] physical (chief complaint) Encounter for general adult medical exam w abnormal findingsEssential (primary) hypertensionRestles s legs syndromeMigraineBar rett's esophagus without dysplasiaHyperlipid emiaOther spondylosis, lumbar regionGeneralized Anxiety Disorder 0 Ronan Flanagan. [address], [place], [place], [address] , [place]. tel:[phone] OFFICE/OUTPA TIENT VISIT, EST [facility], [address], [place], [place], [address], [place] tel:[phone] [facility] tobacco1 (chief complaint) weight1 (chief complaint) Other spondylosis, lumbar regionObesity Dec- 0 Ronan Flanagan. [address], [place], [place], [address] , [place]. tel:[phone] OFFICE/OUTPA TIENT VISIT, [facility], [address], [place], [place], [address], [place] tel:[phone] [facility] back pain1 (chief complaint) Chronic pain syndromeTobacco use Enrique-3 0-202 0 Ronan Panchito. [address], [place], [place], [address] , [place]. tel:[phone] OFFICE/OUTPA TIENT VISIT, [facility], [address] [place], [address], [place] tel:[phone] [facility] RLS1 (chief complaint) HTN (chief complaint) fibromyalg ia1 (chief complaint) hoarseness 1 (chief complaint) sob (chief complaint) headache1 (chief complaint) HoarsenessEssential (primary) hypertensionFibromy algiaMigraineDyspne aTobacco useRestless legs syndrome Enrique-0 0 Ferraro Panchito. [address], [place], [place], [address] , [place]. tel:[phone] OFFICE/OUTPA TIENT VISIT, [facility], [address] [place], [address], [place] tel:[phone] [facility] vitamin D (chief complaint) hoarseness 1 (chief complaint) GERD1 (chief complaint) knee pain1 (chief complaint) HLP (chief complaint) Vitamin D deficiency, unspecifiedHoarsene ssTobacco usePain in left kneeInconclusive mammogramHyperlipid emia 0 Ferraro Panchito. [address], [place], [place], [address] , [place]. tel:[phone] OFFICE/OUTPA TIENT VISIT, [facility], [address], [place], [place], [address], [place] tel:[phone] [facility] hoarsens (chief complaint) GERD1 (chief complaint) HTN (chief complaint) LaryngitisBarrett's esophagus without dysplasiaHoarseness Essential (primary) hypertension 0 Ronan Russell [address], [place], [place], [address] , [place]. tel:[phone] Referring Provider: Jerardo [address], [place], [place], [address]. tel:[phone] OFFICE/OUTPA TIENT VISIT, EST [facility], [address], [place], [place], [address], [place] tel:[phone] [facility] fibromyalg ia1 (chief complaint) HLP (chief complaint) tobacco1 (chief complaint) barrett1 (chief complaint) Essential (primary) hypertensionFibromy algiaHyperlipidemia Lawson's esophagus without dysplasiaTobacco use 0 Ronan Russell [address], [place], [place], [address] , [place]. [phone] Referring Provider: Jerardo [address], [place], [place], [address]. tel:[phone] PREV VISIT, EST, AGE 40-64 [facility], [address], [place], [place], [address], [place] tel:[phone] [facility] Physical (chief complaint) Encounter for general adult medical exam w abnormal findingsDyspneaMigr aineBarrett's esophagus without dysplasiaRestless legs syndromeEssential (primary) hypertension 9 Ronan [address], [place], [place], [address] , [place]. tel:[phone] [facility], [address], [place], [place], [address], [place] tel:[phone] [facility] Inconclusive mammogram 9 Ronan Russell [address], [address], [place], [place], [address] , [place]. tel:[phone] OFFICE/OUTPA TIENT VISIT, EST [facility], [address], [place], [place], [address], tel:[phone] [facility] shoulder pain1 (chief complaint) HTN. (chief complaint) headache1 (chief complaint) RLS1 (chief complaint) HLP (chief complaint) Pain in right shoulderMigraineFib romyalgiaEssential (primary) hypertensionRestles s legs syndromeTobacco useHyperlipidemia 9 Ronan Flanagan. [address], [place], [place], [address] , [place]. tel:[phone] Referring Provider: Jerardo [address], [place], [place], [address]. tel:[phone] OFFICE/OUTPA TIENT VISIT, EST [facility], [address], [place], [place], [address], [place] tel:[phone] [facility] back pain1 (chief complaint) RLS (chief complaint) tobacco1 (chief complaint) Restless legs syndromeLumbago with sciatica, unspecified sideTobacco use 8 Ronan Flanagan. [address], [place], [place], [address] , [place]. tel:[phone] Referring Provider: [address], [place], [place], [address]. tel:[phone] PREV VISIT, EST, AGE 40-64 [facility], [address], [place], [place], [address], [place] tel:[phone] [facility] PHysical (chief complaint) Encounter for general adult medical exam w abnormal findingsRestless legs syndromePain in right handBarrett's esophagus without dysplasiaMigraineNe vus, non-neoplasticEssen tial (primary) hypertension 8 Ronan Russell [address], [place], [place], [address] , [place]. tel:[phone] Referring Provider: Jerardo Bruce [address], [place], [place], [address]. tel:[phone] OFFICE/OUTPA TIENT VISIT, EST [facility], [address], [place], [place], [address], [place] tel:[phone] [facility] fibormyalg ia1 (chief complaint) HLp (chief complaint) rest less leg1 (chief complaint) anixyet1 (chief complaint) HyperlipidemiaFibro myalgiaRestless legs syndromeGeneralized Anxiety Disorder 0 8 Ronan Flanagan. [address], [address], [place], [place], [address] , [place]. [phone] Referring Provider: Jerardo Bruce [address], [place], [place], [address]. tel:[phone] OFFICE/OUTPA TIENT VISIT, [facility], [address], [place], [place], [address], [place] tel:[phone] [facility] headache1 (chief complaint) restless leg1 (chief complaint) HLP (chief complaint) GERD1 (chief complaint) Other migraine, not intractable, without status migrainosusRestless legs syndromeBarrett's esophagus without dysplasiaHyperlipid emia Dec- 7 Ronan Flanagan. [address], [address], [place], [place], [address] , [place]. tel:[phone] Referring Provider: Jerardo [address], [place], [place], [address]. tel:[phone] OFFICE/OUTPA TIENT VISIT, [facility], [address] [place], [address], [place] tel:[phone] [facility] headache1 (chief complaint) COPD1 (chief complaint) chest pain1 (chief complaint) HTN (chief complaint) COPDHeadacheEssenti al (primary) hypertensionChest pain 7 Ronan Flanagan. [address], [address], [place], [place], [address] , [place]. [phone] Referring Provider: Jerardo Bruce [facility] [address], [place], [place], [address]. tel:[phone] PREV VISIT, EST, AGE 40-64 [facility], [address], [place], [place], [address], [place] tel:[phone] [facility] PHysical (chief complaint) Encounter for general adult medical exam w abnormal findingsRestless legs syndromeFibromyalgi aEssential (primary) hypertension 7 Ronan Flanagan. [address], [address], [place], [place], [address] , [place]. tel:[phone] Referring Provider: Panchito Ferraro, [address], [place], [place], [address]. tel:[phone] OFFICE/OUTPA TIENT VISIT, [facility], [address], [place], [place], [address], [place] tel:[phone] [facility] sick (chief complaint) Acute upper respiratory infection, unspecified Ronan Flanagan. [address], [address], [place], [place], [address] , [place]. [phone] OFFICE/OUTPA TIENT VISIT, [facility], [address], [place], [place], [address], [place] tel:[phone] [facility] cough1 (chief complaint) tobacco (chief complaint) Acute bronchitisTobacco use Ronan Flanagan. [address], [address], [place], [place], [address] , [place]. tel:[phone] OFFICE/OUTPA TIENT VISIT, [facility], [address], [place], [place], [address], [place] tel:[phone] [facility] restless leg (chief complaint) fibromyalg ia (chief complaint) HLP (chief complaint) cough1 (chief complaint) Restless legs syndromeHyperlipide miaFibromyalgiaCoug h 6 Ronan Flanagan. [address], [address], [place], [place], [address] , [place]. tel:[phone] Referring Provider: Jerardo [address], [place], [place], [address]. tel:[phone] OFFICE/OUTPA TIENT VISIT, [facility], [address], [place], [place], [address], [place] [phone] [facility] HTN (chief complaint) sick (chief complaint) restless (chief complaint) Essential (primary) hypertensionRestles s legs syndromeAcute upper respiratory infection, unspecifiedDysuria 6 Ronan Flanagan. [address], [address], [place], [place], [address] , [place]. [phone] Referring Provider: Panchito Ferraro, [address], [place], [place], [address]. tel:[phone] OFFICE/OUTPA TIENT VISIT, [facility], [address], [place], [place], [address], [place] [phone] [facility] HTN (chief complaint) bone density1 (chief complaint) fibromyalg ia (chief complaint) Essential (primary) hypertensionFibromy algiaEncounter for screening for osteoporosis 6 Ronan Flanagan. [address], [address], [place], [place], [address] , [place]. tel:[phone] Referring Provider: [address], [place], [place], [address]. tel:[phone] OFFICE/OUTPA TIENT VISIT, [facility], [address], [place], [place], [address], [place] tel:[phone] [facility] bug bite1 (chief complaint) vitamin D1 (chief complaint) HLP (chief complaint) Hyperlipidemia, unspecifiedFibromya lgiaInsect bite of unspecified part of neck, initial encounterEncounter for screening for osteoporosis 6 Ronan Flanagan. [address], [place], [place], [address] , [place]. tel:[phone] Referring Provider: Jerardo [address], [place], [place], [address]. tel:[phone] PREV VISIT, NEW, AGE 40-64 [facility], [address], [place], [place], [address], [place] tel:[phone] [facility] PHysical (chief complaint) Encounter for general adult medical exam w abnormal findingsBarrett's esophagus without dysplasiaFibromyalg iaHyperlipidemia 2-201 6 Ronan Flanagan. [address], [place], [place], [address] , [place]. tel:[phone] Referring Provider: Panchito Ferraro [address] [facility] [address], [place], [place], [address]. tel:[phone] Family History Family Member Type Diagnosis Age At Onset Mother Problem (finding) Alive and well Sister Problem (finding) Multiple sclerosis Father Problem (finding) Cancer, lung Payers Payer name Insurance type Covered alliance party ID Authoriza tion(s) No Information Social History Type Description Quantity Date Captured Comments Sex Female Smoking Status No Information Chief Complaint And Reason For Visit No Information Plan Of Treatment Date Type Action Status Goal Tobacco cessation counseling completed Goal Tobacco cessation counseling completed Goal Tobacco cessation counseling completed Goal Tobacco cessation counseling completed Goal Special diet education compl eted Goal Tobacco cessation counseling completed Goal Special diet education compl eted Goal Special diet education compl eted Goal Special diet education compl eted Referral Ordered: Hematology (related to Abnormality of globulin) ordered Referral Ordered: Rheumatology (related to Abnormality of globulin) ordered Referral Ordered: Referrals: Hematology. Evaluate and treat ordered Referral Referred To: Elmira Dewitt MD [address] [place], [place], [address] Ordered: Referrals: Elmira Dewitt MD. Evaluate and treat ordered Referral Ordered: Referrals: Rheumatology. Evaluate and treat ordered Referral Ordered: OPERATIVE UPPER GI ENDOSCOPY ordered Referral Ordered: Dermatology (related to Rash) ordered Referral Ordered: COLONOSCOPY AND BIOPSY ordered Referral Ordered: Dermatology (related to Itch) ordered Referral Ordered: Referrals: Dermatology. Evaluate and treat ordered Referral Ordered: SLEEP STUDY, ATTENDED ordered Referral Ordered: Otolaryngology (related to Nevus, non-neoplastic) ordered Referral Ordered: CT ANGIOGRAPHY, HEAD ordered Referral Ordered: CT ANGIOGRAPHY, NECK ordered Referral Ordered: CT MAXILLOFACIAL W/O DYE (SINUSES) SF ordered Referral Ordered: MRI BRAIN W/O DYE ordered Referral Ordered: Otolaryngology (related to Disturbance of taste) ordered Referral Ordered: US VENOUS DOPPLER ordered Referral Ordered: Otolaryngology (related to Hoarseness) ordered Referral Ordered: Referrals: Otolaryngology. Evaluate and treat ordered Referral Ordered: Gastroenterology (related to Lawson's esophagus without dysplasia) ordered Referral Ordered: Referrals: Gastroenterology. Evaluate and treat ordered Referral Ordered: MAMMOGRAM, ONE BREAST ordered Referral Referred To: Armaan HERNANDEZ, Javi Bertrand [address] [place], [place], [address] Ordered: Referrals: Javi Crook MD Evaluate and treat ordered Referral Ordered: Pain Medicine (related to Lumbago with sciatica, unspecified side) ordered Referral Ordered: Physical Therapy (related to Lumbago with sciatica, unspecified side) ordered Referral Ordered: Referrals: Pain Medicine. Evaluate and treat ordered Referral Ordered: MRI LUMBAR SPINE W/O DYE ordered Referral Referred To: Physical Therapy Ordered: Referrals: Physical Therapy ordered Referral Ordered: HAND XRAY, TWO VIEW Right ordered Referral Ordered: LINCOLN HERRON (related to Encounter for general adult medical exam w abnormal findings) ordered Referral Referred To: LINCOLN HERRON [address] [facility]
[address], [id number] Ordered: Referrals: LINCOLN HERRON. Evaluate and treat ordered Referral Ordered: CT THORAX W/O DYE ordered Referral Ordered: MARY JO CHAWLA (related to Dysuria) ordered Referral Referred To: MARY JO CHAWLA [address] [place], [id number] Ordered: Referrals: MARY JO CHAWLA. Evaluate and treat ordered Referral Ordered: DXA BONE DENSITY, AXIAL ordered Referral Ordered: MAMMOGRAM, SCREENING ordered History Of Present Illness Encounter Date Complaint History Of Prese nt Illness migraine1 Pt has chronic m igraine. Pt c/o throbbing and pressure headache around left temporal area with nausea and vomiting and photophobia as well. Pt denies any head injury or waking up at night with headache Pt has been getting worsening and daily headache for 6 weeks Pt denies any trigger factor. Pt takes topamax which has not been helping Pt states that imitrex does help. Pt denies any acute headache RLS Pt has RLS Pt do ing ok with requip. HLP Pt has HLP. Pt t akes lipitor Pt denies any myalgia migraine1 Pt has migraine headache Pt takes topamax and she rarely has migraine Pt used to take imitrex PRn which works well to relieve her headache. Pt denies any acute headache sob Pt is a long vasquez e smoker. Pt uses albuterol occasionally. Pt denies any hemoptysis, cough. Pt rarely feels sob bone1 Pt notices a bon y mass right side of chest area near the sternoclavicular joint chronically. Pt denies any size change or pain. Pt denies any dysphagia. Pt had soft tissue of the neck done several months ago to assess the area which was normal. CT of neck did show 5 mm enhancing lesion at the right MCA trifurcation. Pt denies any headache Pt did have CTA of brain which was normal without aneurysm. Pt is very concerned about the bony mass above. HTN Pt has HTN Pt ta kes losartan/hctz and her bp is stable .Pt needs it refilled . arm pain1 Pt has chronic n marbin pain s/p cervical surgery x 3 Pt notices mild right bicep area pain recently which stemmed from right upper shoulder area Pt denies any radiculopathy Pt denies any right arm weakness, numbness or tingling. hand pain1 Pt c/o right johnston d and finger stiffness and some finger pain recently Pt denies any weakness, numbness or tingling weight loss1 Pt has been diet and exercising and losing weight Pt denies any nausea, vomiting, early satiety, change of bowel, abd pain, etc aneurysm1 Pt saw hematolog y recently for right side cervical mass which resolved and CT of neck showed 5 mm enhancing lesion at the right MCA trifurcation. Pt needs further imaging study. Pt denies any acute or worsening headache Renuka Pt has diffuse j oint pain with positive RENUKA .Pt has fernanda with rheumatology around December of this year . arm pain1 Pt has right arm pain and swelling for several weeks after blood drawn Pt states that bruising resolved. Pt also states that pain and swelling around IV site also improved Pt states that right upper pain and swelling also resolved. Pt had negative duplex dopplers study of right upper extremity migraine1 Pt has history o f migraine headache. Pt denies any acute headache. Pt is on topamax and she rarely has headache anymore Pt needs topamax refilled bicep pain1 Pt had lab drawn around March of last year and she dd notice some bruising around right arm near the blood drawing site near the anterior elbow and she then notices more bruising right bicep area with persistent right bicep area pain regardless or resting or with activity Pt denies any injury Pt denies any cold extremity RENUKA Pt has chronic v ague rash and skin lesion and she just saw dermatology at [facility] who did lab work which showed mildly elevated RENUKA. Pt denies any diffuse joint pain. she is being worked up for neuropathic itch vs bullous pemphigoid. globulin1 Pt has history o f low total protein .Pt had SPEP done which showed normal pattern without monoclonal proteins. She does have borderline low gamma globulin. Pt is concerned about low immune status and wants to see hematology abd pain Pt has intermitt ent postprandial midepigastric abd pain. Pt had negative egd and colonoscopy Pt has history of gallbladder removal. pt had negative gastric empty study RENUKA Pt has chronic v ague rash and skin lesion and she just saw dermatology at [facility] who did lab work which showed mildly elevated RENUKA. Pt denies any diffuse joint pain. she is being worked up for neuropathic itch vs bullous pemphigoid. protein1 Pt has history o f low total protein .Pt had SPEP done which showed normal pattern without monoclonal proteins. She does have borderline low gamma globulin. Pt is concerned about low immune status calcium Pt has history o f low calcium .Pt had ionized calcium done which was normal. Pt denies any bone pain LFT Pt has history o f high LFT .Pt denies any abd pain or jaundice. Pt had repeat LFT and hepatitis panel done which were all normal weight loss1 Pt has been losi ng weight gradually during last several years Pt denies any appetite loss, nausea, vomiting Pt does have chronic GERD and she is on omeprazole and pepcid and doing ok. Pt had benign EGD and colonoscopy recently she does have mild postprandial midepigastric abd pain s/p evaluation by GI. Pt has not done gastric empty study yet abd pain1 Pt c/o mild mide pigastric abd pain after food for several months Pt had EGD done recently which showed HH and gastritis only. Pt denies any nausea, vomiting, dysphagia. Pt has not done gastric empty study yet rash1 Pt has chronic a nd recurrent skin rash for several years and she had multiple inconclusive skin biopsy by two dermatologists and she was treated with abx and steroid and none helped. Pt took diflucan x 10 days recently after EGD showed fungal esophagitis. Pt states that while on diflucan, everything got better including her skin and also hip pain, etc. Pt notices small blisters like lesion all over body which pops up and she feels burning sensation around the spots. Pt denies any drainage. Pt states that she feels bugs crawling all over her all the time and she is convinced that she has some forms of bugs on her body. Pt did move from her previous residence due to possible bugs but she continues to have same issue at her new home. Pt saw sifter operator at [facility] recently who gave her some steroid topical but did not help at all. Pt wants some pills to kill the bugs on her. LFT Pt has mildly hi gh LFT on lab. Pt denies any jaundice. calcium Pt had lab done which showed mildly low calcium and low total protein RLS Pt has RLS Pt ta kes requip and doing ok pt needs refilled. HLP Pt has HLP Pt ta kes lipitor pt denies any myalgia. abd pain1 Pt c/o mild mide pigastric abd pain after food for several weeks. Pt had EGD done recently which showed HH and gastritis only. Pt denies any nausea, vomiting, dysphagia. GERD1 Pt has fungal es ophagitis. Pt took diflucan and she denies any active issue Pt is omeprazole and pepcid. migraine1 Pt has migraine headache Pt takes topamax and she has not had any headache while on topamax. 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 Pt took diflucan x 10 days recently after EGD showed fungal esophagitis. Pt states that while on diflucan, everything got better including her skin and also hip pain, etc. Pt states that she finished the diflucan 4 weeks ago and the skin lesion returned. Pt notices small blisters like lesion all over body which pops up and she feels burning sensation around the spots. Pt denies any drainage. Pt wants to try another round of anti-fungal medication Pt states that she has fernanda with sifter operator at [facility] in February. skin Pt has recurrent skin lesion with skin breakdown and open sores for long time Pt is seeing sifter operator and she had biopsy on the spots which were benign per patient pt finished doxycycline and also some topical abx but none helped .Pt denies any fever Pt wants to see a different sifter operator. Pt states that she started diflucan and the skin sores are improving. Pt thinks that she has systemic fungal infection and she wants longer treatment of diflucan colon polyp1 Pt had colonosco py done which showed tubular adenoma. Pt denies any lower GI bleeding or change of bowel barrett1 Pt has history o f lawson. Pt takes omeprazole and pepcid and doing ok pt denies any abd pain. EGD showed HH and also gastritis without lawson and also fungal esophagitis. Pt was started diflucan x 7 days by GI. Pt denies any abd pain skin Pt has recurrent skin lesion with skin breakdown and open sores for long time Pt is seeing sifter operator and she had biopsy on the spots which were benign per patient pt finished doxycycline and also some topical abx but none helped .Pt denies any fever Pt wants to see a different sifter operator. abd pain1 Pt c/o right low er quadrant abdominal pain involving right hip and with radiation of pain down to right upper anterior thigh area and to right buttock area for two weeks. Pt denies any injury .Pt went to ER 8 days ago and she had negative hip x ray. Pt was told that she is constipated by [facility]. Pt states that she has BM daily Pt then went to ER yesterday and she had CT abdomen and pelvis done which showed thickening of the distal esophagus and ? acute cystitis. Pt denies any urinary symptoms Pt does have chronic GERD and her last EGD was 2020 which showed esophageal ring. Pt is on omeprazole and pepcid by GI Pt states that she has mild dysphagia as well. Pt denies any injury Pt had steroid injection at ER last night which did help her pain Pt did have trouble with weight bearing but resolved since last night Pt states that right lower abdomen and hip area pain improved today .Pt denies any urinary symptoms skin lesion1 HTN Pt has HTN Pt ta kes irbesartan/hctz and she needs bp refilled .Her bp is stable at home rash1 Pt has chronic a nd recurrent skin lesions Pt is convinced that there is bugs that is biting her. Pt actually moved out of her old home to a new house but she is still suffering from bug bite" Pt states that she has recurrent painful skin sores Pt has been to multiple sifter operator. Pt currently is seeing dermatology who did biopsy to her skin lesion recently and is waiting for results and she is on doxycycline for presumed staph infection. Pt states that she keeps seeing black small insects that bites her causing her multiple painful skin sores. Pt states that she is able to remove some black parts from the insects. Pt states that she overall dose not feel well and she thinks that she needs to be admitted to hospital for check. Pt denies any fever, chill. Pt states that the sores are painful with clear drainage all over body ,Pt denies any fever. Pt c/o stomach upset. 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 tension1 Pt states that t ension headache and mastoid swelling resolved Pt denies any recurrent headache. Pt denies any neck pain iron Pt went to see d ermatologist recently regarding itching and rash and she was told that she has dermatitis and was given steroid topical which helped her condition. Reporter Anchor did do lab which showed normal iron and TSH swelling1 Pt c/o bilateral occipital notch area swelling intermittently for several weeks with some associated pain around the area involving posterior neck and causing tension headache as well Pt denies any sore throat or any fever, chill, sinus symptoms sleep apnea1 pt has moderate sleep apnea pt feels very fatigue all the time. Pt does snore at night itch pt c/o diffuse i tching all over body Pt notices some vague spots on her body Pt denies any bleeding Pt denies any bugs in her house Pt denies any itching between fingers and inner thigh. Pt also notices itchy scalp Pt c/o alopecia. Pt has history of similar rash last year and she had negative work up by dermatology b12 Pt has been gett ing b12 injection but she does not feel any better and she feels more tired. fatigue Additional infor evgeny: Pt feels chronic fatigue. Pt denies any sob or dizziness. Pt does snore at night. Pt has history of sleep apnea and she used to use cpap but she has not used any cpap for long time. alopecia1 Pt has subjectiv e alopecia. Pt denies any scalp itching or rash her tsh is ok physical Pt needs annual physical Pt takes multiple medications Pt just had lab done which showed borderline high albumin and RBC Pt has HLP Pt takes lipitor and her lipid profile is ok. Pt has chronic migraine headache Pt takes topamax and her headache is well controlled. Pt denies any recurrent headache. pt overall doing well. albumin1 Pt has mildly hi gh albumin rbc Pt has borderlin e high RBC Pt has normal iron. Pt does not have any polycythemia. HLP Pt has HLP Pt ta kes lipitor Pt denies any myalgia migraine1 Pt has migraine headache Pt takes topamax and she has not had any migraines while on topamax alopecia1 Pt has been losi ng hair during last 6 months Pt denies any bald spot Pt denies any scalp rash ,Pt stopped vitamin D 6 months ago and she notices some hair loss after that RLS1 Pt has RLS Pt ta kes requip and doing ok paresthesia1 Pt c/o numbness and tingling feeling from right lower lip down to right side of chin for 3 months. Pt denies any drooping. Pt states that when she drinks water, she feels that the water is dripping down from right side of lip but she actually is NOT dripping. Pt just feels sensation of it. Pt denies any pain or itching Pt denies any facial droop. Pt also notices two brown spot inside right oral mucosa and also small brownish spot on right bottom of her lip x 3 months. Pt denies any ear pain or jaw pain or any facial weakness or any other facial weakness or neuropathy symptoms. Pt had some dental work done 3 months ago and she had right lower molar pulled and she started to have symptoms since then. Pt denies any taste change. Pt denies any dysphagia HTN Pt has HTN. Pt t yosefes losartan/hctz pt has not checked her bp for a while. RLS Pt has RLS. Pt t yosefes requip and doing ok Pt needs it refilled. tobacco1 Pt has 40 pack y ear tobacco history Pt denies any hemoptysis, sob or cough. Pt needs LDCT bug bite1 Pt states that s he has persistent bug bite all over her body .Pt states that she has daily bite by multiple bugs in the apartment. Pt states that the terminator came by and did severe treatment but she still is suffering from multiple bug bites daily. Pt has multiple bug bite jese all over body and several ulcerative lesion around extremities. Pt notices persistent pain around the bite tejada with itching. pt states that her landlord is kicking her out and she is suing her landlord and also the terminator. 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 She did get a biopsy done on the lesion on her leg and she was told it is a ulcer. Pt does have fernanda with sifter operator in two days .Pt denies any bleeding. Pt denies any fever. Pt states that she has persistent pain around the skin lesion and she feels pain going down to her bones .Pt denies any fever. Pt also was treated with permethrin and some steroid cream by dermatology. Pt states that she is afraid of the infection going to her blood stream. Pt denies hearing voice, seeing things, paranoid feeling, etc bug bite1 Pt states that s he has multiple bug bite all over skin for the past several weeks with pain and mild itching around the bite jese. Pt denies any drainage Pt denies any fever, chill Pt finished oral abx. Pt states that she continues to get bitten even after terminator service. skin infection1 Pt c/o diffuse ? insect bite all over body since two weeks ago .Pt has been spraying her house by terminator and all they saw is some bedbugs. Pt denies any itching. Pt denies any bleeding or drainage .Pt states that the wound is very painful Pt denies any fever Pt denies any headache Pt has been applying abx ointment to the area along with oral keflex. Pt denies any spreading of the lesions Pt denies any joint pain bug bite1 Pt states that s he has bedbug infestation in her apartment and she got bitten multiple part of her body around her shoulder and hand for the past two days. the terminator came over and did a treatment for her apartment today. Pt notices multiple painful and red spot on back of her hand and is non itching Pt denies any fever. Pt states that the bite murks are all over her and she feels hurt all over her body. Pt denies any drainage physical Pt needs annual physical. Pt has migraine headache and she takes topamax and doing ok. pt denies any recurrent headache. Pt has RLs Pt takes requip and doing ok. Pt has chronic neck and back pain with mild neuropathy Pt denies any saddle area paresthesia. Pt is off lyrica. Pt sees pain management Pt takes morphine and norco and doing ok. Pt gets injections. Pt has HTn Pt takes losartan/hctz and her bp is ok at home. Pt has chronic GERD. She had EGD done last year and was told no lawson. Pt is on omeprazole and pepcid now and doing ok. Pt sees GI Pt denies any dysphagia or GERD. Pt also has HLP ,Pt takes lipitor Pt denies any myalgia Pt denies any recurrent syncope episodes. CTA brain and carotid ok leg pain1 Pt went to ER on 03/30/21 due to low back pain with left sciatica. Pt denies any sob or chest pain Pt denies any recent travel or bedrest Pt denies any leg swelling Pt denies any chest pian or sob Pt had negative CT of abdomen and pelvis and also left leg duplex venous doppler study. Pt was given steroid and also muscle relaxant which she is not sure if she took them or not. Pt denies any leg pain or back pain or leg swelling now Pt denies any sob or chest pain fell1 Pt states that s he came home on 03/31/21 from ER and she had an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
--- OUTSIDE RECORDS SUMMARY | 2024-05-22 10:26 | XMS_ITS | Continuity of Care Document ---
Author Organization [facility] Address [address] [facility] [address] [place] [address] Phone Care Team Providers Care Heading Repairer Name Role Phone Lopez OD, Doroteo Unavailable Unavailable Advance Directives Directive Yes / No Effective Date File Name No Information Encounters Encounter Description Practice Location Reason(s) For Visit Diagnoses Date Provider Providers Copied on Encounter [facility], [address] [place] [address] [address], [place], [place], [id number], [place] tel:[phone] SEC [facility] [place] No Information Dec-0 2-200 5 Lopez OD Doroteo. [address] [facility] [address] [place] , [address], [place], [address], [place]. tel:[phone] Family History Family Member Type Diagnosis Age At Onset No Information Payers Payer name Insurance type Covered democrat ID Authoriza tion(s) No Information Social History Type Description Quantity Date Captured Comments Sex Female Smoking Status No Information Chief Complaint And Reason For Visit No Information Reason For Referral Reason For Referral No Information History Of Present Illness Encounter Date Complaint History Of Prese nt Illness No Information Functional Status Date Functional Assessmen t No Information Instructions Date Instruction Additional Infor mation No Information Assessments Type Assessment Date No Information Patient Care Teams Name Effective Dates (start - stop) Status Members No Information
--- OUTSIDE RECORDS SUMMARY | 2024-05-22 10:26 | XMS_ITS ---
Author Organization [facility] [employer] Address [address] [facility] [address] [place] [address] Care Team Providers Care Vaccine Key Customer Leader Name Role Phone Panchito Ferraro MD Primary Care Provider Nhung Lopes Unavailable [phone] REASON FOR VISIT RE:Rx Was Sent Medications Medication SIG (Take, Route, Fr equency, Duration) Notes Start Date End Date Status DULoxetine HCl 60 MG 1 capsule Oral Once a day for 90 days Active traZODone HCl 50 MG 1 tablet at bedtime Oral at bedtime for 90 days Active busPIRone HCl 5 MG TAKE 1 TABLET BY JIM TWICE DAILY WITH MEALS Oral Twice a day for 90 days 06/06/2024 Active Social History Sex Assigned At : Social History Observation Description Sex Assigned At Female Encounters Encounter Location Date Provider Diagnosis [facility] [employer] [facility] [address] [facility] [address] [facility] [address] [place] [address] 03/07/2024 Nhung Devries Bipolar disorder, current episode depressed, mild F31.31 ; Insomnia due to other mental disorder F51.05 and Generalized anxiety disorder F41.1 Assessments Encounter Date Diagnosis (ICD Code) Assessment Notes Treatment Notes Treatment Clinical Notes Section Notes 03/07/2024 Bipolar disorder, current episode depressed, mild (ICD-10 - F31.31) 03/07/2024 Insomnia due to other mental disorder (ICD-10 - F51.05) 03/07/2024 Generalized anxiety disorder (ICD-10 - F41.1) Plan Of Treatment Medication Medication Name Sig Start Date Stop Date Notes DULoxetine HCl 60 MG 1 capsule Oral Once a day for 90 days traZODone HCl 50 MG 1 tablet at bedtime Oral at bedtime for 90 days busPIRone HCl 5 MG TAKE 1 TABLET BY JIM TWICE DAILY WITH MEALS Oral Twice a day for 90 days 06/06/2024 Next Appt Details Provider Name:Nhung Devries , 07/13/2024 10:45:00 AM, [address], [facility] [address], [place], [address], Progress Notes * LA ZHAOB:1960 (63 yo F)Acc No.[id number]:03/07/2024 Patient: MOOK RUIZ :1960 A ge:63 Y S ex:Female Address:[facility], [place], [address] * Refills Refill DULoxetine HCl Capsule Delayed Release Particles, 60 MG, Oral, 90, 1 capsule, Once a day, 90 days, Refills=0 Refill traZODone HCl Tablet, 50 MG, Oral, 90 Tablet, 1 tablet at bedtime, at bedtime, 90 days, Refills=0 Refill busPIRone HCl Tablet, 5 MG, Oral, 180 Tablet, TAKE 1 TABLET BY MOUTH TWICE DAILY WITH MEALS, Twice a day, 90 days, Refills=0 * true * Date: Generated for Fidel gorman/Juhi/Lisaitting on: 0 05/22/2024 10:26 AM REPERTOIRE MANAGER
--- OUTSIDE RECORDS SUMMARY | 2024-05-22 10:26 | XMS_ITS ---
Author Organization [facility] [employer] [facility] Address [address] [facility] [address] [facility] [address] [place] [address] Care Team Providers Care Lithographers Printer Name Role Phone Panchito Ferraro MD Primary Care Provider Unavailabl Nhung Cannon Unavailable [phone] REASON FOR VISIT buspirone refill Medications Medication SIG (Take, Route, Fr equency, Duration) Notes Start Date End Date Status busPIRone HCl 5 MG TAKE 1 TABLET BY JIM TH TWICE DAILY WITH MEALS Oral Twice a day for 90 days 06/05/2024 Active Social History Sex Assigned At : Social History Observation Description Sex Assigned At Female Encounters Encounter Location Date Provider Diagnosis [facility] [place] [id number] [facility] [address] [facility] [address] [place] [address] 03/07/2024 Nhung Devries Generalized anxiety disorder F41.1 Assessments Encounter Date Diagnosis (ICD Code) Assessment Notes Treatment Notes Treatment Clinical Notes Section Notes 03/07/2024 Generalized anxiety disorder (ICD-10 - F41.1) Plan Of Treatment Medication Medication Name Sig Start Date Stop Date Notes busPIRone HCl 5 MG TAKE 1 TABLET BY JIM TH TWICE DAILY WITH MEALS Oral Twice a day for 90 days 06/05/2024 Next Appt Details Provider Name:Nhung Devries , 07/13/2024 10:45:00 AM, [address], [address], [place], [address], Progress Notes * LA ZHAOB:1960 (63 yo F)Acc No.[id number]:03/07/2024 Patient: MOOK RUIZ :1960 A ge:63 Y S ex:Female Address:[facility] [address] [facility] [address], [place], [address] * Refills Refill busPIRone HCl Tablet, 5 MG, Oral, 180 Tablet, TAKE 1 TABLET BY MOUTH TWICE DAILY WITH MEALS, Twice a day, 90 days, Refills=0 * true * Date: Generated for Fidel gorman/Juhi/Lisaitting on: 0 05/22/2024 10:26 AM DENITRATOR OPERATOR
--- OUTSIDE RECORDS SUMMARY | 2024-05-22 10:26 | XMS_ITS | Clinical Summary ---
Author Organization [facility] Address [address] [place] [address] Care Team Providers Care Loom Changeover Operator Name Role Phone Panchito Ferraro MD Primary Care Provider [phone] Allergies Active Allergy Reactions Criticality Noted Date Comments Sulfa Antibiotics Other (see comment) Social History Tobacco Use Types Packs/Day Years Used Date Smoking Tobacco: Every Day Cigarettes Smokeless Tobacco: Never Tobacco Cessation:Ready to Q uit: Not Asked; Counseling Given: Not Answered Alcohol Use Standard Drinks/Week Comments Yes 0 (1 standard drink = 0.6 oz pur e alcohol) Comments Unknown Sex and Gender Information Value Date Recorded Sex Assigned at Not on file Legal Sex Female 5:32 PM CDT Gender Identity Not on file Sexual Orientation Not on file Last Filed Vital Signs Vital Sign Reading Time Taken Comments Blood Pressure 132/70 10/05/2022 9:23 PM CDT Pulse 72 10/05/2022 9:23 PM CDT Temperature 36.7 C (98 F) 10/05/2022 9:23 PM CDT Respiratory Rate 16 10/05/2022 9:23 PM CDT Oxygen Saturation 98% 10/05/2022 9:23 PM CDT Inhaled Oxygen Concentration - - Weight 70.1 kg (154 lb 8.7 oz) 10/05/2022 4:38 P M CDT Height 149.9 cm (4' 11 ) 10/05/2022 4:38 PM CDT Body Mass Index 31.21 10/05/2022 4:38 PM CDT Plan of Treatment Health Maintenance Due Date Last Done Comments Colorectal Cancer Screening Colonoscopy (10 Years) 1960 Annual Physical 09/21/1962 Pneumococcal Vaccine: Pediatrics (0 to 5 Years) and At-Risk Patients (6 to 64 Years) (1 of 2 - PCV) 09/21/1965 Hepatitis C 09/21/1977 Mammogram Screening 1999 Zoster Vaccines (1 of 2) 09/21/2009 COVID-19 Vaccine (3 - 2023-2 5 season) 2023 07/10/2020, 06/19/2020 Influenza Adult (#1) 2024 DTaP, Tdap and Td Vaccines ( 2 - Td or Tdap) 05/05/2031 05/05/2021 RSV Immunization or 60+ Years (1 - 1-dose 75+ series) 09/21/2034 Meningococcal B Vaccine Aged Out No l onger eligible based on patient's age to complete this topic Meningococcal Vaccine Aged Out No edi jonathan eligible based on patient's age to complete this topic RSV Immunizations Under 20 Months Aged Out No longer eligible b ased on patient's age to complete this topic Insurance [id number] [place] [id number] [place] [address] MEDICAID Care Teams Loom Changeover Operator Relationship Specialty Start Date End Date Panchito Ferraro MD [address] [place] [address] PCP - General FAMILY PRACTICE 10/05/22
--- OUTSIDE RECORDS SUMMARY | 2024-05-22 10:27 | XMS_ITS ---
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 Name Role Phone Ronan HERNANDEZ, Panchito Primary Care Provider Nhung Lopes Unavailable [phone] Allergies Allergen (clinical drug ingredient) Drug/Non Drug Allergy documented on EMR Reaction Allergy Type Onset Date Status Substance with sulfonamide structure and antibacterial mechanism of action (substance) Sulfa Antibiotics Unknown Drug Allergy Active REASON FOR VISIT Follow up rx Medications Medication SIG (Take, Route, Frequency, Duration) Notes Start Date End Date Status Esomeprazole Magnesium 40 MG TAKE ONE CAPSULE BY MOUTH DAILY Oral for 90 Days Not-Taking Esomeprazole Magnesium 40 MG TAKE ONE CAPSULE BY MOUTH DAILY Oral for 90 Days Not-Taking Dicyclomine HCl 10 MG TAKE 1 CAPSULE BY MOUTH THREE TIMES DAILY Oral for 90 Days Active busPIRone HCl 5 MG 1 tablet Oral Twice a day with meals for 30 days 03/05/2024 05/04/2024 Active Atorvastatin Calcium 10 MG TAKE 1 TABLET BY MOUTH EVERY DAY Oral for 90 Days Active Morphine Sulfate 15 MG TAKE 1 TABLET BY MOUTH THREE TIMES DAILY NEEDED Oral for 30 Days Active Losartan Potassium-HCTZ 50-12.5 MG TAKE 1 TABLET BY MOUTH EVERY DAY Oral for 90 Days Active Topiramate 100 MG TAKE 1 TABLET BY JIM TH TWICE DAILY Oral for 90 Days Active Esomeprazole Magnesium 40 MG TAKE ONE CAPSULE BY MOUTH DAILY Oral for 90 Days Active rOPINIRole HCl 2 MG TAKE 1 TABLET BY JIM TH EVERY NIGHT AT BEDTIME Oral for 90 Days Active DULoxetine HCl 60 MG 1 capsule Oral Once a day for 90 days Active traZODone HCl 50 MG 1 tablet at bedtime Oral at bedtime for 90 days Active busPIRone HCl 5 MG TAKE 1 TABLET BY JIM TH TWICE DAILY WITH MEALS Oral Twice a day for 90 days Active Esomeprazole Magnesium 40 MG TAKE ONE CAPSULE BY MOUTH DAILY Oral for 90 Days Not-Taking Social History Tobacco Use: Social History Observation Description Date Details (start date - stop date) Current Smoker NA - NA Sex Assigned At : Social History Observation Description Sex Assigned At Female Tobacco Control (Standard) Question Answer Notes Tobacco use: Current smoker AUDIT-C (Standard) Question Answer Notes Did you have a drink contain ing alcohol in the past year? Yes How often did you have six o r more drinks on one occasion in the past year? Less than monthly (1 point) Vital Signs Blood pressure systolic 124 mm Hg 04/13/19 25 Blood pressure diastolic 71 mm Hg 025 Heart Rate 93 /min 04/13/2024 Height 60.00 in 04/13/2024 Weight 134 lbs 04/13/2024 BMI 26.17 kg/m2 04/13/2024 Height-cm 152.40 cm 04/13/2024 Weight-kg 60.78 kg 04/13/2024 Encounters Encounter Location Date Provider Diagnosis [facility] [address] [address] 04/13/2024 Nhung Devries Bipolar disorder, current episode depressed, mild F31.31 ; Generalized anxiety disorder F41.1 ; Insomnia due to other mental disorder F51.05 ; 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 Bipolar affective disorder, currently depressed, mild - labs obtain from PCP Monitor for jayesh and bipolar s/s educated on all medications, benefits, side effects and risk, and educated on depression, anxiety, and mood d/o and educated on compliance of medications, metabolic and movement d/o education appointment's, continue therapy discussion with patient about course of treatmentand patient instructions. bone scan from PCP - patient has not completed schedule 10/02 mammogram scheduled 10/02 2. Generalized anxiety disorder - Cymbalta 60 mg daily Buspar 5 mg twice a day for anxiety and depression discuss therapy as needed not scheduled 3. Insomnia disorder related to another mental disorder -Trazodone 50 mg at bedtime Melatonin 3-5 mg at night OTC sleep study hx - not using CPAP 4. Tobacco user -Educated on stop smoking patient reported has patches at home, Do not smoke. Nicotine and other chemicals in cigarettes and cigars can cause lung damage. Ask your healthcare provider for information if you currently smoke and need help to quit. E-cigarettes or smokeless tobacco still contain nicotine. Talk to your healthcare provider before you use these products. education on decrease to stopping nicotine products and stop smoking hotline given 558-Quit - Yes [place] Tobacco Quitline Call a Smoking Quitline The [employer] [place]'s Smoking Quitline, (4-143-39T-QUIT ) Smokefree.gov, which connects you with your State's Quitline, (4-915-UNAPIGX) [facility] Smoking Quitline, (5-315-ZHXLMBP) 04/13/2024 Generalized anxiety disorder (ICD-10 - F41.1) Learning About Generalized Anxiety Disorder material was published 1. Bipolar affective disorder, currently depressed, mild - labs obtain from PCP Monitor for jayesh and bipolar s/s educated on all medications, benefits, side effects and risk, and educated on depression, anxiety, and mood d/o and educated on compliance of medications, metabolic and movement d/o education appointment's, continue therapy discussion with patient about course of treatmentand patient instructions. bone scan from PCP - patient has not completed schedule 10/02 mammogram scheduled 10/02 2. Generalized anxiety disorder - Cymbalta 60 mg daily Buspar 5 mg twice a day for anxiety and depression discuss therapy as needed not scheduled 3. Insomnia disorder related to another mental disorder -Trazodone 50 mg at bedtime Melatonin 3-5 mg at night OTC sleep study hx - not using CPAP 4. Tobacco user -Educated on stop smoking patient reported has patches at home, Do not smoke. Nicotine and other chemicals in cigarettes and cigars can cause lung damage. Ask your healthcare provider for information if you currently smoke and need help to quit. E-cigarettes or smokeless tobacco still contain nicotine. Talk to your healthcare provider before you use these products. education on decrease to stopping nicotine products and stop smoking hotline given Quit - Yes [place] Tobacco Quitline Call a Smoking Quitline The [employer] [place] Smoking Quitline, (7-766-10X-QUIT ) Smokefree.gov, which connects you with your [facility]'s Quitline, (4-375-TUQIMBB) [facility] Smoking Quitline, (0-308-OIKAZIQ) 04/13/2024 Insomnia due to other mental disorder (ICD-10 - F51.05) 1. Bipolar affective disorder, currently depressed, mild - labs obtain from PCP Monitor for jayesh and bipolar s/s educated on all medications, benefits, side effects and risk, and educated on depression, anxiety, and mood d/o and educated on compliance of medications, metabolic and movement d/o education appointment's, continue therapy discussion with patient about course of treatmentand patient instructions. bone scan from PCP - patient has not completed schedule 10/02 mammogram scheduled 10/02 2. Generalized anxiety disorder - Cymbalta 60 mg daily Buspar 5 mg twice a day for anxiety and depression discuss therapy as needed not scheduled 3. Insomnia disorder related to another mental disorder -Trazodone 50 mg at bedtime Melatonin 3-5 mg at night OT sleep study hx - not using CPAP 4. Tobacco user -Educated on stop smoking patient reported has patches at home, Do not smoke. Nicotine and other chemicals in cigarettes and cigars can cause lung damage. Ask your healthcare provider for information if you currently smoke and need help to quit. E-cigarettes or smokeless tobacco still contain nicotine. Talk to your healthcare provider before you use these products. education on decrease to stopping nicotine products and stop smoking hotline given Quit - Yes [place] Tobacco Quitline Call a Smoking Quitline The [employer] [place]'s Smoking Quitline, (5-420-24X-QUIT ) Smokefree.gov, which connects you with your State's Quitline, (8-143-ZYACUTF) [facility] Smoking Quitline, (3-432-CGLCVXI) 04/13/2024 Other fpc (current) drug therapy (ICD-10 - Z79.899) Medication Refill: Care Instructions material was published 1. Bipolar affective disorder, currently depressed, mild - labs obtain from PCP Monitor for jayesh and bipolar s/s educated on all medications, benefits, side effects and risk, and educated on depression, anxiety, and mood d/o and educated on compliance of medications, metabolic and movement d/o education appointment's, continue therapy discussion with patient about course of treatmentand patient instructions. bone scan from PCP - patient has not completed schedule 10/02 mammogram scheduled 10/02 2. Generalized anxiety disorder - Cymbalta 60 mg daily Buspar 5 mg twice a day for anxiety and depression discuss therapy as needed not scheduled 3. Insomnia disorder related to another mental disorder -Trazodone 50 mg at bedtime Melatonin 3-5 mg at night OTC sleep study hx - not using CPAP 4. Tobacco user -Educated on stop smoking patient reported has patches at home, Do not smoke. Nicotine and other chemicals in cigarettes and cigars can cause lung damage. Ask your healthcare provider for information if you currently smoke and need help to quit. E-cigarettes or smokeless tobacco still contain nicotine. Talk to your healthcare provider before you use these products. education on decrease to stopping nicotine products and stop smoking hotline given -Quit - Yes [place] Tobacco Quitline Call a Smoking Quitline The [employer] [place] Smoking Quitline, (0-154-51L-QUIT ) Smokefree.gov, which connects you with your State's Quitline, (2-891-DANENVT) [facility] Smoking Quitline, (9-545-BMEFFHF) 04/13/2024 Chronic pain syndrome (ICD-10 - G89.4) Chronic Pain: Care Instructions material was published 1. Bipolar affective disorder, currently depressed, mild - labs obtain from PCP Monitor for jayesh and bipolar s/s educated on all medications, benefits, side effects and risk, and educated on depression, anxiety, and mood d/o and educated on compliance of medications, metabolic and movement d/o education appointment's, continue therapy discussion with patient about course of treatmentand patient instructions. bone scan from PCP - patient has not completed schedule 10/02 mammogram scheduled 10/02 2. Generalized anxiety disorder - Cymbalta 60 mg daily Buspar 5 mg twice a day for anxiety and depression discuss therapy as needed not scheduled 3. Insomnia disorder related to another mental disorder -Trazodone 50 mg at bedtime Melatonin 3-5 mg at night OTC sleep study hx - not using CPAP 4. Tobacco user -Educated on stop smoking patient reported has patches at home, Do not smoke. Nicotine and other chemicals in cigarettes and cigars can cause lung damage. Ask your healthcare provider for information if you currently smoke and need help to quit. E-cigarettes or smokeless tobacco still contain nicotine. Talk to your healthcare provider before you use these products. education on decrease to stopping nicotine products and stop smoking hotline given 560-Quit - Yes [place] Tobacco Quitline Call a Smoking Quitline The [employer] [place]'s Smoking Quitline, (9-987-86H-QUIT ) Smokefree.gov, which connects you with your State's Quitline, (9-292-IEFICPB) [facility] Smoking Quitline, (0-207-UEUFGQU) 04/13/2024 Obesity, unspecified (ICD-10 - E66.9) Learning About Healthy Weight material was published 1. Bipolar affective disorder, currently depressed, mild - labs obtain from PCP Monitor for jayesh and bipolar s/s educated on all medications, benefits, side effects and risk, and educated on depression, anxiety, and mood d/o and educated on compliance of medications, metabolic and movement d/o education appointment's, continue therapy discussion with patient about course of treatmentand patient instructions. bone scan from PCP - patient has not completed schedule 10/02 mammogram scheduled 10/02 2. Generalized anxiety disorder - Cymbalta 60 mg daily Buspar 5 mg twice a day for anxiety and depression discuss therapy as needed not scheduled 3. Insomnia disorder related to another mental disorder -Trazodone 50 mg at bedtime Melatonin 3-5 mg at night OTC sleep study hx - not using CPAP 4. Tobacco user -Educated on stop smoking patient reported has patches at home, Do not smoke. Nicotine and other chemicals in cigarettes and cigars can cause lung damage. Ask your healthcare provider for information if you currently smoke and need help to quit. E-cigarettes or smokeless tobacco still contain nicotine. Talk to your healthcare provider before you use these products. education on decrease to stopping nicotine products and stop smoking hotline given Quit - Yes [place] Tobacco Quitline Call a Smoking Quitline The [employer] [place] Smoking Quitline, (8-124-94D-QUIT ) Smokefree.gov, which connects you with your State's Quitline, (0-643-XNQQSGQ) [facility] Smoking Quitline, (4-150-KPBBINE) 04/13/2024 Essential (primary) hypertension (ICD-10 - I10) 1. Bipolar affective disorder, currently depressed, mild - labs obtain from PCP Monitor for jayesh and bipolar s/s educated on all medications, benefits, side effects and risk, and educated on depression, anxiety, and mood d/o and educated on compliance of medications, metabolic and movement d/o education appointment's, continue therapy discussion with patient about course of treatmentand patient instructions. bone scan from PCP - patient has not completed schedule 10/02 mammogram scheduled 10/02 2. Generalized anxiety disorder - Cymbalta 60 mg daily Buspar 5 mg twice a day for anxiety and depression discuss therapy as needed not scheduled 3. Insomnia disorder related to another mental disorder -Trazodone 50 mg at bedtime Melatonin 3-5 mg at night OTC sleep study hx - not using CPAP 4. Tobacco user -Educated on stop smoking patient reported has patches at home, Do not smoke. Nicotine and other chemicals in cigarettes and cigars can cause lung damage. Ask your healthcare provider for information if you currently smoke and need help to quit. E-cigarettes or smokeless tobacco still contain nicotine. Talk to your healthcare provider before you use these products. education on decrease to stopping nicotine products and stop smoking hotline given -Quit - Yes [place] Tobacco Quitline Call a Smoking Quitline The [employer] [place]'s Smoking Quitline, (7-561-28A-QUIT ) Smokefree.gov, which connects you with your State's Quitline, (4-573-LIKQMRD) Veterans Smoking Quitline, (4-003-LPTAAZB) 04/13/2024 Vitamin D deficiency, unspecified (ICD-10 - E55.9) 1. Bipolar affective disorder, currently depressed, mild - labs obtain from PCP Monitor for jayesh and bipolar s/s educated on all medications, benefits, side effects and risk, and educated on depression, anxiety, and mood d/o and educated on compliance of medications, metabolic and movement d/o education appointment's, continue therapy discussion with patient about course of treatmentand patient instructions. bone scan from PCP - patient has not completed schedule 10/02 mammogram scheduled 10/02 2. Generalized anxiety disorder - Cymbalta 60 mg daily Buspar 5 mg twice a day for anxiety and depression discuss therapy as needed not scheduled 3. Insomnia disorder related to another mental disorder -Trazodone 50 mg at bedtime Melatonin 3-5 mg at night OTC sleep study hx - not using CPAP 4. Tobacco user -Educated on stop smoking patient reported has patches at home, Do not smoke. Nicotine and other chemicals in cigarettes and cigars can cause lung damage. Ask your healthcare provider for information if you currently smoke and need help to quit. E-cigarettes or smokeless tobacco still contain nicotine. Talk to your healthcare provider before you use these products. education on decrease to stopping nicotine products and stop smoking hotline given -Quit - Yes [place] Tobacco Quitline Call a Smoking Quitline The [employer] [place]'s Smoking Quitline, (7-484-27P-QUIT ) Smokefree.gov, which connects you with your State's Quitline, (4-687-JVOAMOX) [facility] Smoking Quitline, (0-229-MBITWCN) 04/13/2024 Hyperlipidemia, unspecified (ICD-10 - E78.5) Learning About High Cholesterol material was published 1. Bipolar affective disorder, currently depressed, mild - labs obtain from PCP Monitor for jayesh and bipolar s/s educated on all medications, benefits, side effects and risk, and educated on depression, anxiety, and mood d/o and educated on compliance of medications, metabolic and movement d/o education appointment's, continue therapy discussion with patient about course of treatmentand patient instructions. bone scan from PCP - patient has not completed schedule 10/02 mammogram scheduled 10/02 2. Generalized anxiety disorder - Cymbalta 60 mg daily Buspar 5 mg twice a day for anxiety and depression discuss therapy as needed not scheduled 3. Insomnia disorder related to another mental disorder -Trazodone 50 mg at bedtime Melatonin 3-5 mg at night OTC sleep study hx - not using CPAP 4. Tobacco user -Educated on stop smoking patient reported has patches at home, Do not smoke. Nicotine and other chemicals in cigarettes and cigars can cause lung damage. Ask your healthcare provider for information if you currently smoke and need help to quit. E-cigarettes or smokeless tobacco still contain nicotine. Talk to your healthcare provider before you use these products. education on decrease to stopping nicotine products and stop smoking hotline given 430-Quit - Yes [place] Tobacco Quitline Call a Smoking Quitline The [employer] [place] Smoking Quitline, (0-923-45D-QUIT ) Smokefree.gov, which connects you with your State's Quitline, (2-158-QLYQKCW) [facility] Smoking Quitline, (9-713-IFWHJKU) 04/13/2024 Tobacco use (ICD-10 - Z72.0) Learning About Benefits of Quitting Smoking material was published, Stopping Smokeless Tobacco Use: Care Instructions material was published, Deciding About Using Medicines To Quit Smoking material was published, Quitting Tobacco: Care Instructions material was published 1. Bipolar affective disorder, currently depressed, mild - labs obtain from PCP Monitor for jayesh and bipolar s/s educated on all medications, benefits, side effects and risk, and educated on depression, anxiety, and mood d/o and educated on compliance of medications, metabolic and movement d/o education appointment's, continue therapy discussion with patient about course of treatmentand patient instructions. bone scan from PCP - patient has not completed schedule 10/02 mammogram scheduled 10/02 2. Generalized anxiety disorder - Cymbalta 60 mg daily Buspar 5 mg twice a day for anxiety and depression discuss therapy as needed not scheduled 3. Insomnia disorder related to another mental disorder -Trazodone 50 mg at bedtime Melatonin 3-5 mg at night OTC sleep study hx - not using CPAP 4. Tobacco user -Educated on stop smoking patient reported has patches at home, Do not smoke. Nicotine and other chemicals in cigarettes and cigars can cause lung damage. Ask your healthcare provider for information if you currently smoke and need help to quit. E-cigarettes or smokeless tobacco still contain nicotine. Talk to your healthcare provider before you use these products. education on decrease to stopping nicotine products and stop smoking hotline given 370-Quit - Yes [place] Tobacco Quitline Call a Smoking Quitline The [employer] [place] Smoking Quitline, (9-702-15M-QUIT ) Smokefree.gov, which connects you with your State's Quitline, (6-748-KUDQBEX) [facility] Smoking Quitline, (0-566-VXRVJHT) 04/13/2024 Post-traumatic stress disorder, chronic (ICD-10 - F43.12) Post-Traumatic Stress Disorder (PTSD): Care Instructions material was published 1. Bipolar affective disorder, currently depressed, mild - labs obtain from PCP Monitor for jayesh and bipolar s/s educated on all medications, benefits, side effects and risk, and educated on depression, anxiety, and mood d/o and educated on compliance of medications, metabolic and movement d/o education appointment's, continue therapy discussion with patient about course of treatmentand patient instructions. bone scan from PCP - patient has not completed schedule 10/02 mammogram scheduled 10/02 2. Generalized anxiety disorder - Cymbalta 60 mg daily Buspar 5 mg twice a day for anxiety and depression discuss therapy as needed not scheduled 3. Insomnia disorder related to another mental disorder -Trazodone 50 mg at bedtime Melatonin 3-5 mg at night OTC sleep study hx - not using CPAP 4. Tobacco user -Educated on stop smoking patient reported has patches at home, Do not smoke. Nicotine and other chemicals in cigarettes and cigars can cause lung damage. Ask your healthcare provider for information if you currently smoke and need help to quit. E-cigarettes or smokeless tobacco still contain nicotine. Talk to your healthcare provider before you use these products. education on decrease to stopping nicotine products and stop smoking hotline given Quit - Yes [place] Tobacco Quitline Call a Smoking Quitline The [employer] [place] Smoking Quitline, (-QUIT ) Smokefree.gov, which connects you with your [facility]'s Quitline, (5-146-YVYEAXO) [facility] Smoking Quitline, (2-021-KBIGZWP) 04/13/2024 Other asthma (ICD-10 - J45.998) 1. Bipolar affective disorder, currently depressed, mild - labs obtain from PCP Monitor for jayesh and bipolar s/s educated on all medications, benefits, side effects and risk, and educated on depression, anxiety, and mood d/o and educated on compliance of medications, metabolic and movement d/o education appointment's, continue therapy discussion with patient about course of treatmentand patient instructions. bone scan from PCP - patient has not completed schedule 10/02 mammogram scheduled 10/02 2. Generalized anxiety disorder - Cymbalta 60 mg daily Buspar 5 mg twice a day for anxiety and depression discuss therapy as needed not scheduled 3. Insomnia disorder related to another mental disorder -Trazodone 50 mg at bedtime Melatonin 3-5 mg at night OTC sleep study hx - not using CPAP 4. Tobacco user -Educated on stop smoking patient reported has patches at home, Do not smoke. Nicotine and other chemicals in cigarettes and cigars can cause lung damage. Ask your healthcare provider for information if you currently smoke and need help to quit. E-cigarettes or smokeless tobacco still contain nicotine. Talk to your healthcare provider before you use these products. education on decrease to stopping nicotine products and stop smoking hotline given -Quit - Yes [place] Tobacco Quitline Call a Smoking Quitline The [employer] [place] Smoking Quitline, (8-572-35D-QUIT ) Smokefree.gov, which connects you with your [facility]'s Quitline, (5-324-GTHHFCJ) [facility] Smoking Quitline, (2-002-ZSCAPKR) 04/13/2024 Nonscarring hair loss, unspecified (ICD-10 - L65.9) 1. Bipolar affective disorder, currently depressed, mild - labs obtain from PCP Monitor for jayesh and bipolar s/s educated on all medications, benefits, side effects and risk, and educated on depression, anxiety, and mood d/o and educated on compliance of medications, metabolic and movement d/o education appointment's, continue therapy discussion with patient about course of treatmentand patient instructions. bone scan from PCP - patient has not completed schedule 10/02 mammogram scheduled 10/02 2. Generalized anxiety disorder - Cymbalta 60 mg daily Buspar 5 mg twice a day for anxiety and depression discuss therapy as needed not scheduled 3. Insomnia disorder related to another mental disorder -Trazodone 50 mg at bedtime Melatonin 3-5 mg at night OTC sleep study hx - not using CPAP 4. Tobacco user -Educated on stop smoking patient reported has patches at home, Do not smoke. Nicotine and other chemicals in cigarettes and cigars can cause lung damage. Ask your healthcare provider for information if you currently smoke and need help to quit. E-cigarettes or smokeless tobacco still contain nicotine. Talk to your healthcare provider before you use these products. education on decrease to stopping nicotine products and stop smoking hotline given Quit - Yes [place] Tobacco Quitline Call a Smoking Quitline The [employer] [place]'s Smoking Quitline, (7-623-82M-QUIT ) Smokefree.gov, which connects you with your State's Quitline, (6-006-JWMBUIN) [facility] Smoking Quitline, (6-812-YQFHQCA) Plan Of Treatment Medication Medication Name Sig Start Date Stop Date Notes DULoxetine HCl 60 MG 1 capsule Oral Once a day for 90 days traZODone HCl 50 MG 1 tablet at bedtime Oral at bedtime for 90 days busPIRone HCl 5 MG TAKE 1 TABLET BY JIM TH TWICE DAILY WITH MEALS Oral Twice a day for 90 days Treatment Notes Assessment Notes Generalized anxiety disorder Learning Ab out Generalized Anxiety Disorder material was published 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 M edication Refill: Care Instructions material was published Chronic pain syndrome Chronic Pain: Care Instructions material was published Obesity, unspecified Learning About Heal thy Weight material was published Hyperlipidemia, unspecified Learning Abo ut High Cholesterol material was published Tobacco use Learning About Benef its of Quitting Smoking material was published, Stopping Smokeless Tobacco Use: Care Instructions material was published, Deciding About Using Medicines To Quit Smoking material was published, Quitting Tobacco: Care Instructions material was published Post-traumatic stress disorder, chronic Post-Traumatic Stress Disorder (PTSD): Care Instructions material was published Next Appt Details Follow Up: 3 Months, Reason: Provider Name:Nhung Devries , 07/13/2024 10:45:00 AM, [address], [facility] [address], [place], [address], Progress Notes * CECEBRIANNE JUAREZGIACOMOB:1960 (63 yo F)Acc No.[id number]:04/13/2024 Patient: MOOK RUIZ Provider: ARACELY DAILEY :1960 A ge:63 Y S ex:Female Date:04/13/2024 Address:[address] [place] [address], [id number] Pcp:Panchito Freraro MD Subjective: * Chief Complaints: * 1 . Follow up rx. * HPI: H istory of Presenting Problem: Follow up bipolar depression and anxiety, chronic since last visit, I feel I been doing good with depression and anxiety, I feel pretty good I have arthritis pain and goes away when lay down, I feel over all good and not sad ordown no hopeless or helpless, anxiety been fine, no restless or fidgety and things good and quite, g ood m otivation and interest, sleep good 8-9 hours and eating healthier and trying to get more protein I am not a big eater and I still lose hair and taking vitamins now also for hair, appetite good and weight s table I weight self every couple days in 120's without clothes on, and happy with weight, no nightmares or flashbacks, no panic attacks, and I am not using CPAP I do not have it now, no movement d/o noted or reported, concentration and focus good,meds all good no s/e and no jayesh No psychosis, no SI/HI. FH Brother- Bipolar Pain management ETOH occasional smoking 1/2 ppd decrease drugs denies labs none grandson he has rare medical problem nerve and checking genetic test and was in hospital for infusions he is 16 and not able to run or stand on toes,- getinfusions monthly and not better a pnea Pain disturbing sleep: l ower back; m iddle of the back Prescribed sleep medications: c urrent medication is helping CPAP: not using. D epression Screening: RAMIRO-7 (2018 Edition) F eeling nervous, anxious, or on edge?Not at all, N ot being able to stop or control worrying N ot at all, W orrying too much about different things N ot at all, T rouble relaxing N ot at all, B eing so restless that it is hard to sit still N ot at all, B ecoming easily annoyed or irritable N ot at all, F eeling afraid as if something awful might happen N ot at all, I f you checked any problems, how difficult have they made it for you to do your work, take care of things at home, or get along with other people? N ot difficult at all. [place]-Suicide Severity Rating Scale: Suicide Risk (CSRS-screener) i n the past one month Have you wished you were or wished you could go to sleep and not wake up? N o, i n the past one month Have you actually had any thoughts of killing yourself? N o, H ave you ever done anything, started to do anything, or prepared to do anything to end your life? N o. D epression screening: PHQ-9 L ittle interest or pleasure in doing things N ot at all, F eeling down, depressed, or hopeless N ot at all, T rouble falling or staying asleep, or sleeping too much N ot at all, F eeling tired or having little energy N ot at all, P oor appetite or overeating N ot at all, F eeling bad about yourself or that you are a failure, or have let yourself or your family down N ot at all, T rouble concentrating on things, such as reading the newspaper or watching television N ot at all, M oving or speaking so slowly that other people could have noticed; or the opposite, being so fidgety or restless that you have been moving around a lot more than usual N ot at all, T houghts that you would be better off or of hurting yourself in some way N ot at all. * ROS: P jeanine reports wears glasses new glasses She reports d ry mouth b ut reports no sore throat; hx t rouble speaking and throat issues since 04/2019 improved having throat stretch 12/30 hx fungal infection esophagus and improved with rx. She reports s leep apnea (CPAP not using) b ut reports no cough and no shortness of breath. She reports no abdominal pain, no nausea, no vomiting, no constipation, normal appetite, no diarrhea, and GERD; G ERD improved. She reports no increased urinary frequency b ut reports no incontinence, no difficulty urinating, S he reports b ack pain neck, shoulders hx (injections) b ut reports no muscle aches, no muscle weakness, arthralgias/joint pain, neck pain, and no difficulty walking. She reports hx rash (schedule ot see nurse prn CHEYANNE 03/03). She reports hx frequent or severe headaches and migraines; i mproved headaches. on rx She reports no depression, no sleep disturbances, no restless sleep, and improved anxiety b ut reports feeling safe in a relationship, no alcohol abuse, no hallucinations, no suicidal thoughts, no mood swings, no memory loss, and no agitation. She reports no fatigue. She reports no significant weight gain and no significant weight loss. She reports no chest pain,, no shortness of breath , no palpitations, no known heart murmur, and no ankle swelling. * Medical History: Ca alfaro: Bipolar affective disorder, currently depressed, mild, Chronic post-traumatic stress disorder, Generalized anxiety disorder, Insomnia disorder related to another mental disorder, Long-term drug therapy, Mild recurrent major depression, Recurrent major depressive episodes, mild, Recurrent major depressive episodes, moderate, Tobacco user, Weight gain, ,. * Social History: T obacco Use: T obacco Control (Standard) T obacco use: C urrent smoker. M igrated Social History: M igrated Social History: Alcohol Intake: None 07/15/2023,Tobacco Years: Current every day smoker 06/01/2018,Smoking Status: 38 02/01/2023. D rug/Alcohol: A HANNAH-C (Standard) D id you have a drink containing alcohol in the past year? Y es,?How often did you have six or more drinks on one occasion in the past year? L ess than monthly (1 point). M iscellaneous: A dvance Care Planning A re you your own decision-maker Y es, D o you have Power of Financial Investment Adviser for Health or Medical? N o. * Medications: T aking Morphine Sulfate 15 MG Tablet TAKE 1 TABLET BY MOUTH THREE TIMES DAILY NEEDED Oral , Taking Losartan Potassium-HCTZ 50-12.5 MG Tablet TAKE 1 TABLET BY MOUTH EVERY DAY Oral , Taking Esomeprazole Magnesium 40 MG Capsule Delayed Release TAKE ONE CAPSULE BY MOUTH DAILY Oral , Taking Topiramate 100 MG Tablet TAKE 1 TABLET BY MOUTH TWICE DAILY Oral , Taking rOPINIRole HCl 2 MG Tablet TAKE 1 TABLET BY MOUTH EVERY NIGHT AT BEDTIME Oral , Taking Dicyclomine HCl 10 MG Capsule TAKE 1 CAPSULE BY MOUTH THREE TIMES DAILY Oral , Taking Atorvastatin Calcium 10 MG Tablet TAKE 1 TABLET BY MOUTH EVERY DAY Oral , Taking busPIRone HCl 5 MG Tablet 1 tablet Oral Twice a day with meals , stop date 05/04/2024, Taking DULoxetine HCl 60 MG Capsule Delayed Release Particles 1 capsule Oral Once a day , Taking traZODone HCl 50 MG Tablet 1 tablet at bedtime Oral at bedtime , Taking busPIRone HCl 5 MG Tablet TAKE 1 TABLET BY MOUTH TWICE DAILY WITH MEALS Oral Twice a day , stop date 06/06/2024, Not-Taking Esomeprazole Magnesium 40 MG Capsule Delayed Release TAKE ONE CAPSULE BY MOUTH DAILY Oral , Not-Taking Esomeprazole Magnesium 40 MG Capsule Delayed Release TAKE ONE CAPSULE BY MOUTH DAILY Oral , Not-Taking Esomeprazole Magnesium 40 MG Capsule Delayed Release TAKE ONE CAPSULE BY MOUTH DAILY Oral , Medication List reviewed and reconciled with the patient * Allergies: S ulfa Antibiotics. Objective: * Vitals: B P:124/71mm Hg, HR:93/min, Wt:134lbs, Wt-k.78 kg, Ht: 60.00 in, Ht-cm: 152.40 cm, BMI:26.17Index, Body Surface Area: 1.6. * Examination: P sychiatry: Appearance: w ell-groomed, well-nourished, appears stated age, slender build. Abnormal body movements: n one. Affect / mood: a ppropriate, full range. Aggression: l ow. Anger control: g ood. Attention: g ood. Attitude: c ooperative. Gait s teady. Homicidal ideation: n one. Suicidal ideation: n one. Memory status: n o impairment. Degree of awareness of surroundings: w ithin normal limits.? Delusions: n o. Hallucinations: n o. Impulse control: g ood. Insight: g ood. Intellectual functioning: a verage. Comprehension - Intellectual function: a verage. Judgement: g ood. Orientation: a wake, alert and oriented x 3. Perceptual disorders: n o perceptual disorder noted. Psychomotor activity: w ithin normal range. Sexual impulse control: g ood. Speech / language: a ppropriate pitch/modulation, clear and coherent, normal rate, volume, and articulation (RVR), proper grammar used. Thought content: a ppropriate. Thought process: i ntact. Assessment: * Assessment: 1. B ipolar disorder, current episode depressed, mild - F31.31 (Primary) 2 .?Generalized anxiety disorder - F41.1 3 . I nsomnia due to other mental disorder - F51.05 4 . O ther fpc (current) drug therapy - Z79.899 5. C hronic pain syndrome - G89.4 6 . O besity, unspecified - E66.9 ? 7 . E ssential (primary) hypertension - I10 8 . V itamin D deficiency, unspecified - E55.9 9 . H yperlipidemia, unspecified - E78.5 10. T obacco use - Z72.0 1 1. P ost-traumatic stress disorder, chronic - F43.12 1 2. O ther asthma - J45.998 1 3. N onscarring hair loss, unspecified - L65.9 1. Bipolar affective disorde r, currently depressed, mild - labs obtain from PCP Monitor for jayesh and bipolar s/s educated on all medications, benefits, side effects and risk, and educated on depression, anxiety, and mood d/o and educated on compliance of medications, metabolic and movement d/o education appointment's, continue therapy discussion with patient about course of treatmentand patient instructions. bone scan from PCP - patient has not completed schedule 10/02 mammogram scheduled 10/02 2. Generalized anxiety disorder - Cymbalta 60 mg daily Buspar 5 mg twice a day for anxiety and depression discuss therapy as needed not scheduled 3. Insomnia disorder related to another mental disorder -Trazodone 50 mg at bedtime Melatonin 3-5 mg at night OTC sleep study hx - not using CPAP 4. Tobacco user -Educated on stop smoking patient reported has patches at home, Do not smoke. Nicotine and other chemicals in cigarettes and cigars can cause lung damage. Ask your healthcare provider for information if you currently smoke and need help to quit. E-cigarettes or smokeless tobacco still contain nicotine. Talk to your healthcare provider before you use these products. education on decrease to stopping nicotine products and stop smoking hotline given 9Quit - Yes [place] Tobacco Quitline Call a Smoking Quitline The [employer] [place]'s Smoking Quitline, (4-646-45Y-QUIT) Smokefree.gov, which connects you with your [facility]'s Quitline, (6-266-OYDGVFT) [facility] Smoking Quitline, (4-910-HUXSSBB) Plan: * Treatment: 2. G eneralized anxiety disorder Refill busPIRone HCl Tablet, 5 MG, TAKE 1 TABLET BY MOUTH TWICE DAILY WITH MEALS, Oral, Twice a day, 90 days, 90 Tablet, Refills 0. Notes: Learning About Generalized Anxiety Disorder material was published 3. I nsomnia due to other mental disorder Refill traZODone HCl Tablet, 50 MG, 1 tablet at bedtime, Oral, at bedtime, 90 days, 90 Tablet, Refills 0. 4. O ther fpc (current) drug therapy Notes: Medication Refill: Care Instructions material was published 5. C hronic pain syndrome Notes: Chronic Pain: Care Instructions material was published 6. O besity, unspecified Notes: Learning About Healthy Weight material was published 7. H yperlipidemia, unspecified Notes: Learning About High Cholesterol material was published 8. T obacco use Notes: Learning About Benefits of Quitting Smoking material was published, Stopping Smokeless Tobacco Use: Care Instructions material was published, Deciding About Using Medicines To Quit Smoking material was published, Quitting Tobacco: Care Instructions material was published 9. P ost-traumatic stress disorder, chronic Notes: Post-Traumatic Stress Disorder (PTSD): Care Instructions material was published * Procedure Codes: G 9902 Pt scrn tbco and id as user, G2211 VISIT COMPLEXITY INHERENT TO ONGOING CARE RELATED TO A PATIENT'S SINGLE, SERIOUS CONDITION OR A COMPLEX CONDITION * Preventive Medicine: Counseling: C ommunication to patient: C ounseled the Patient on tobacco use; cessation provided 0 04/13/2024 Do not smoke. Nicotine and other chemicals in cigarettes and cigars can cause lung damage. Ask your healthcare provider for information if you currently smoke and need help to quit. E-cigarettes or smokeless tobacco still contain nicotine. Talk to your healthcare provider before you use these products.education on decrease to stopping nicotine products and stop smoking hotline uudfv8-051-Eqfo - Yes [place] Tobacco QuitlineCall a Smoking QuitlineThe [employer] [place]'s Smoking Quitline, (4-062-31R-QUIT)Smokefree.gov, which connects you with your State's Quitline, (1-479-SNZQHHV)[facility] Smoking Quitline, (9-253-TEDYXYO). S moking Cessation counseling done Discuss the importance of quitting smoking,. * Follow Up: 3 Months * Billing Information: * Visit Code: 86371 OFFICE OUTPATIENT VISIT 25 MINUTES DETAILED HISTORY AND EXAM/MODERATE MEDICAL DECISION MAKING. * Procedure Codes: G9902 Pt scrn tbco and id as user. G2211 VISIT COMPLEXITY INHERENT TO ONGOING CARE RELATED TO A PATIENT'S SINGLE, SERIOUS CONDITION OR A COMPLEX CONDITION. * OUS CHLORIDE HELPER Sign off status: Completed true * Provider: ARACELY DAILEY Date: 0 04/13/2024 Generated for Fidel gorman/Juhi/Xavi on: 0 05/22/2024 10:26 AM CUPROUS CHLORIDE HELPER History and Physical Notes * HPI (History of Present Illness) Category Sub-Category Detail Notes Category Not es History of Presenting Problem Follow up bipolar depression and anxiety, chronic since last visit, I feel I been doing good with depression and anxiety, I feel pretty good I have arthritis pain and goes away when lay down, I feel over all good and not sad ordown no hopeless or helpless, anxiety been fine, no restless or fidgety and things good and quite, good motivation and interest, sleep good 8-9 hours and eating healthier and trying to get more protein I am not a big eater and I still lose hair and taking vitamins now also for hair, appetite good and weight stable I weight self every couple days in 120's without clothes on, and happy with weight, no nightmares or flashbacks, no panic attacks, and I am not using CPAP I do not have it now, no movement d/o noted or reported, concentration and focus good,meds all good no s/e and no jayesh No psychosis, no SI/HI. FH Brother- Bipolar Pain management ETOH occasional smoking 1/2 ppd decrease drugs denies labs none grandson he has rare medical problem nerve and checking genetic test and was in hospital for infusions he is 16 and not able to run or stand on toes,- getinfusions monthly and not better apnea Pain disturbing sleep: lower back; middle of the back Prescribed sleep medications: current medication is helping CPAP: not using Depression screening PHQ-9 Little interest or pleasure in doing things: Not at all Feeling down, depressed, or hopeless: No t at all Trouble falling or staying asleep, or sl eeping too much: Not at all Feeling tired or having little energy: N ot at all Poor appetite or overeating: Not at all Feeling bad about yourself o r that you are a failure, or have let yourself or your family down: Not at all Trouble concentrating on thi ngs, such as reading the newspaper or watching television: Not at all Moving or speaking so slowly that other people could have noticed; or the opposite, being so fidgety or restless that you have been moving around a lot more than usual: Not at all Thoughts that you would be b arnol off or of hurting yourself in some way: Not at all Depression Screening RAMIRO-7 (2018 Edition) Feelin g nervous, anxious, or on edge: Not at all Not being able to stop or control worryi ng: Not at all Worrying too much about different things : Not at all Trouble relaxing: Not at all Being so restless that it is hard to sit still: Not at all Becoming easily annoyed or irritable: No t at all Feeling afraid as if something awful chet ht happen: Not at all If you checked any problems, how difficult have they made it for you to do your work, take care of things at home, or get along with other people?: Not difficult at all [place]-Suicide Severity Rating Scale Suicide Risk (CSRS-screener) in the past one month Have you wished you were or wished you could go to sleep and not wake up?: No in the past one month Have y ou actually had any thoughts of killing yourself?: No Have you ever done anything, started to do anything, or prepared to do anything to end your life?: No Examination Category Sub-Category Detail Notes Category Not es Psychiatry Appearance: well-groomed, we ll-nourished, appears stated age, slender build Attitude: cooperative Psychomotor activity: within normal rang e Abnormal body movements: none Attention: good Degree of awareness of surroundings: wit hin normal limits Orientation: awake, alert and miles ented x 3 Affect / mood: appropriate, full ra nge Speech / language: appropriate pitch/mo dulation, clear and coherent, normal rate, volume, and articulation (RVR), proper grammar used Insight: good Judgement: good Thought process: intact Thought content: appropriate Perceptual disorders: no perceptual diso rder noted Aggression: low Anger control: good Suicidal ideation: none Homicidal ideation: none Intellectual functioning: average Impulse control: good Sexual impulse control: good Memory status: no impairment Delusions: no Hallucinations: no Comprehension - Intellectual function: a verage Gait steady
--- OUTSIDE RECORDS SUMMARY | 2024-05-22 10:27 | XMS_ITS | Referral Summary ---
Author Organization [facility] [employer] Address [address] [place] [address] Care Team Providers Care Crisis Nurse Name Role Phone Betty Singh RN Unavailable [phone] Panchito Ferraro MD Primary Care Provider [phone] Lucy Ledesma RN Unavailable Unavailable Source Comments [facility],non-owned Affiliates and Associated Physician Practices is amultiple site organization consisting of ambulatory clinics and hospital sitesin [place], [place], [place] and [place]. This disclosure is being madepursuant to the Care Everywhere program and may not contain all information available regarding this patient. Last updated 17.[facility] [employer] Allergies Active Allergy Reactions Criticality Noted Date Comments Sulfa Antibiotics Other 10/05/2022 Medications * Be aware that medications may not be up to date on this document. Always verify current medications with the patient. Medication Sig Dispensed Refills Start Date End Date Status atorvastatin (LIPITOR) 10 MG tablet Take 1 (one) tablet by mouth once daily Active losartan - hydroCHLOROthiazide (HYZAAR) 50-12.5 MG tablet Take 1 (one) tablet by mouth 01/01/2016 Active morphine CR 12hr (MS CONTIN) 15 MG tablet Take 1 (one) tablet by mouth 08/11/2016 Active esomeprazole (NEXIUM) 40 MG capsule Take 1 (one) capsule by mouth daily before breakfast Active cyclobenzaprine (FLEXERIL) 10 MG tablet Take 1 (one) tablet by mouth 3 times daily as needed Active HYDROcodone-acetaminophe n (NORCO) 7.5-325 MG tablet Take 1 (one) tablet by mouth every 4 hours as needed Active albuterol HFA (PROVENTIL;VENTOLIN;PROA IR) 108 (90 Base) MCG/ACT inhaler Inhale 3 (three) puffs by mouth as needed 04/29/2019 Active DULoxetine (CYMBALTA) 60 MG capsule TK 1 C PO QD IN THE MORNING 11/27/2019 Active lidocaine (LIDODERM) 5 % patch 12/13/2019 Active famotidine (PEPCID) 20 MG tablet TAKE 1 TABLET BY MOUTH TWICE DAILY 180 tablet 1 12/16/2020 Active busPIRone (Buspar) 5 MG tablet Take 1 (one) tablet by mouth 2 times daily with morning and evening meal 02/01/2023 Active dicyclomine (Bentyl) 10 MG capsule Take 1 (one) capsule by mouth 3 times daily 11/17/2022 Active Pramoxine HCl (CeraVe Itch Relief) 1 % CREAIndications:Other pruritus Apply to affected areas up to 4 times a day as needed. Store in frie. 30 day supply. 340 g 5 02/15/2023 Active permethrin (Elimite) 5 % cream 03/18/2023 Active topiramate (Topamax) 100 MG tablet Take 1 (one) tablet by mouth 2 times daily 02/15/2023 Active rOPINIRole (Requip) 2 MG tablet Take 1 (one) tablet by mouth at bedtime 05/01/2023 Active traZODone (Desyrel) 50 MG tablet Take 1 (one) tablet by mouth 05/03/2023 Active Active Problems Problem Noted Date Diagnosed Date Lymphadenopathy 06/21/2023 Cervical mass 06/21/2023 Dysphonia 05/28/2019 DDD (degenerative disc disease) Social History Tobacco Use Types Packs/Day Years Used Date Smoking Tobacco: Every Day Cigarettes 1 25 Smokeless Tobacco: Never Tobacco Cessation:Ready to Q uit: Not Asked; Counseling Given: Not Answered Alcohol Use Standard Drinks/Week Comments Yes 0 (1 standard drink = 0.6 oz pur e alcohol) socially PHQ-2 Answer Date Recorded PHQ2 TOTAL SCORE 0 12/08/2020 Sex and Gender Information Value Date Recorded Sex Assigned at Female 07/06/2020 12:29 PM CDT Gender Identity Female 07/06/2020 12:29 PM CDT Sexual Orientation Straight 07/06/2020 12 :29 PM CDT Last Filed Vital Signs Vital Sign Reading Time Taken Comments Blood Pressure 109/73 06/28/2023 1:09 PM CDT Pulse 82 06/28/2023 1:09 PM CDT Temperature 36.7 C (98 F) 06/28/2023 1:09 PM CDT Respiratory Rate 18 12/25/2019 11:05 AM CDT Oxygen Saturation 98% 06/28/2023 1:09 PM CDT Inhaled Oxygen Concentration - - Weight 65.8 kg (145 lb) 06/28/2023 1:09 PM CDT Height 147 cm (4' 9.87 ) 06/21/2023 1:30 PM CDT Body Mass Index 30.44 06/21/2023 1:30 PM CDT Functional Status Functional Status Response Date of Assess ment Is person deaf or have serious hearing difficult y? No 11/13/2013 Is person blind or have serious difficulty seein g? No 11/13/2013 Does person have serious dif ficulty walking/climbing stairs? No 11/13/2013 Does person have difficulty dressing/bathing? No 11/13/2013 Does person have difficulty doing errands alone? No 11/13/2013 Cognitive Status Response Date of Assessm ent Does person have difficulty concentrating/remembering/making decisions? No 11/13/2013 Plan of Treatment Not on file Medical Devices Implanted Type Area Specialty Person Device Identifier Shelf Expiration Date Model / Serial / Lot Leonard Chambers Dbx Bone 1.0cc Implanted:Qty : 1 on 11/13/2013 by Loyd Grant MD at [facility] N/A: Spine Cervical Spinal [employer] 05/22/2016 [id number] / / [id number] Space Peek 5 X 16 X 14mm Implanted:Qty : 1 on 11/13/2013 by Loyd Grant MD at [facility] N/A: Spine Cervical [employer] 08/08/2021 [id number] / / [id number] Procedures Procedure Name Priority Date/Time Associated Diagnosis Comments COMPREHENSIVE METABOLIC PANEL STAT 06/21/2023 2:41 PM CDT Lymphadenopathy HIV-1 HIV-2 ANTIBODY + HIV P24 AG PANEL 02/15/2023 1:19 PM VIDEO ARCADE MANAGER Other pruritus HEPATITIS C AB SCREEN RFLX NAAT QUANT Routine 10/03/2020 2:42 PM CDT Polyarthralgia from Last 3 Months or Most Recently Relevant to Health Maintenance Results * (ABNORMAL) COMPREHENSIVE METABOLIC PANEL (06/21/2023 2:41 PM CDT) BUN 16 7 - 26 mg/dL 06/21/2023 3:22 PM [facility] Creatinine 0.83 0.56 - 0.96 mg/dL 06/21/2023 3:22 PM [facility] Sodium 140 136 - 145 mmol/L 06/21/2023 3:22 PM [facility] Potassium 3.8 3.5 - 4.5 mmol/L 06/21/2023 3:22 PM [facility] Chloride 104 98 - 107 mmol/L 06/21/2023 3:22 PM [facility] CO2 28 22 - 29 mmol/L 06/21/2023 3:22 PM [facility] Glucose 90 70 - 115 mg/dL 06/21/2023 3:22 PM [facility] Calcium 9.3 8.4 - 10.2 mg/dL 06/21/2023 3:22 PM [facility] Protein Total 6.6 6.0 - 8.3 g/dL 06/21/2023 3:22 PM [facility] Albumin 4.1 3.4 - 5.0 g/dL 06/21/2023 3:22 PM [facility] Bilirubin Total 0.2 0.2 - 1.2 mg/dL 06/21/2023 3:22 PM [facility] Alkaline Phosphatase 69 40 - 150 U/L 06/21/2023 3:22 PM [facility] ALT 20 5 - 55 U/L 06/21/2023 3:22 PM [facility] AST 13 5 - 34 U/L 06/21/2023 3:22 PM [facility] Anion Gap 8 6 - 16 06/21/2023 3:22 PM [facility] BUN/Creatinine Ratio 19 7 - 23 06/21/2023 3:22 PM CDT [facility] Osmolality Calculated 291 275 - 295 mOsm/kg 06/21/2023 3:22 PM CDT [facility] Albumin/Globulin Ratio 1.6 1.1 - 2.3 06/21/2023 3:22 PM CDT [facility] eGFR by CKD-EPI 79(L) >=90 mL/min/1.7 3 m2 06/21/2023 3:22 PM CDT [facility] Blood BLOOD SPECIMEN / Unknown Lab Venipuncture / Unknown 06/21/2023 2:41 PM CDT 06/21/2023 2:57 PM CDT Mhd Maurizio Jerome MD LAB - CHEMISTRY [facility] Organization Address City/State/ZIP Co de Phone Number [facility] [address] [place] [address], [facility] [phone] * HIV-1 HIV-2 ANTIBODY + HIV P24 AG PANEL (02/15/2023 1:19 PM VIDEO ARCADE MANAGER) [facility] HIV Screen 4th Generation w Reflex NON-REACT SHAYY NON-REACT SHAYY [facility] Comment: HIV-1 antigen and HIV-1/HIV-2 antibodies were not detected. There is no laboratory evidence of HIV infection. PLEASE NOTE: This information has been disclosed to you from records whose confidentiality may be protected by state law. If your state requires such protection, then the state law prohibits you from making any further disclosure of the information without the specific written consent of the person to whom it pertains, or as otherwise permitted by law. A general authorization for the release of medical or other information is NOT sufficient for this purpose. For additional information please refer to http://education.[employer]/faq/ZPB861 (This link is being provided for informational/ educational purposes only.) The performance of this assay has not been clinically validated in patients less than 2 years old. Test Performed at: [facility] [id number] [place] [address] CRYSTAL SAHNI MD 02/15/2023 1:19 PM VIDEO ARCADE MANAGER 02/15/2023 1:22 PM VIDEO ARCADE MANAGER Mary Levi MD LAB - CHEMISTRY OR DERABLES [facility] [address] [place] [address] * HEPATITIS C AB SCREEN RFLX NAAT QUANT (10/03/2020 2:42 PM CDT) Hepatitis C Antibody Non-react shayy Non-reac tive 10/03/2020 3:58 PM CDT [facility] Comment:Hepatitis C Antibody screen indicates no serologic evidence of past or current infection with Hepatitis C Virus. Patients with unexplained liver disease who are immunocompromised or suspected of having acute Hepatitis C infection may benefit from Nucleic Acid Test (DENIS) for Hepatitis C Viral RNA to confirm Hepatitis C status. Blood BLOOD SPECIMEN / Unknown Lab Venipuncture / Unknown 10/03/2020 2:42 PM CDT 10/03/2020 2:57 PM CDT Ana Maria Fulton MD LAB - CHEMISTRY [facility] [address] [place] [address], [facility] [phone] from Last 3 Months or Most Recently Relevant to Health Maintenance Advance Directives * Full Code (Latest Code Status on File) Date Activated Date Inactivated Comments 11/13/2013 5:49 PM 11/14/2013 2:10 PM Care Teams Crisis Nurse Relationship Specialty Start Date End Date Panchito Ferraro MD [address] [place] [id number] PCP - General Family Medicine 03/29/23 Betty Singh, RN Alcohol Still Operator 11/14/13 Lucy Ledesma, RN Coordinator 06/22/23
--- OUTSIDE RECORDS SUMMARY | 2024-05-22 10:27 | XMS_ITS | CONTINUITY OF CARE DOCUMENT ---
Author Name lj calhoun Address Unknown Organization [facility] Address [address] [place] [address] Phone [phone] Care Team Providers Care [employer] Driver Name Role Phone Randolph HERNANDEZ, Abdoul Unavailable SHIVAM HERNANDEZ, WARREN Unavailable [phone] WARREN LANGLEY MD Unavailable [phone] PROBLEMS Condition Status Date Provider Notes Chest tightness completed - Dana Espinal DURABILITY TECHNICIAN Tobacco abuse active Tammy Venita Shortness of breath completed - Fariba Espinal DURABILITY TECHNICIAN Hyperlipidemia active Tammy Venita Fibromyalgia active Tammy Venita Snoring active Kehinde Alcantaraon Hypertension active Dana Espinal NP Psoriatic arthritis active Dana Espinal NP HLA B27 antigen positive active Dnaa munguia DURABILITY TECHNICIAN Chest pain active Cristian Lainez ENCOUNTERS Date Type Provider Location Encounter Diag nosis 2 - 7 In-person encounter Office Visit [facility] Chest pain 4 - 5 In-person encounter Office Visit Abdoul Dickson MD [place] Chest tightnessShortness of breathHypertensionPsoriatic arthritisHLA B27 antigen positive 5 - 5 In-person encounter Office Visit Abdoul Dickson MD [facility] Snoring 1 - 1 In-person encounter Office Visit Abdoul Dickson MD [place] 7 - 9 In-person encounter Office Visit Abdoul Dickson MD [place] Tobacco abuseHyperlipidemiaFibromyalgia VITAL SIGNS Date Observation Value Provider Body Mass Index (Ratio) 30.54 kg/m2 Valente Dickson MD blood pressure, diastolic 69 mm[Hg] Arleen nkLogic blood pressure, systolic 119 mm[Hg] Kortney kLogic blood pressure, diastolic 69 mm[Hg] Ke rri Antonieta blood pressure, systolic 119 mm[Hg] Ker ri Gruenenfelder blood pressure, cuff size large Ke rri Gruenenfelder oxygen saturation, oximetry 96 % Juanis Antonitea respiratory rate E&M 16 /min Juanis G maurilioenenfelder pulse rate 93 /min Juanis Grdarcynfe er weight E&M 167 [lb_av] Juanis Grpatye er height E&M 62 [in_i] Juanis Gruenenfe er Body Mass Index (Ratio) 34.93 kg/m2 Valente Dickson MD blood pressure, cuff size large Ke rri Gruenenfeldyvette blood pressure, diastolic 62 mm[Hg] Ke rri Gruenenfelder blood pressure, systolic 102 mm[Hg] Ker ri Christopheruenekryselder oxygen saturation, oximetry 94 % Juanis Tristennenfelder respiratory rate E&M 16 /min Juanis G ruenenfelder pulse rate 93 /min Juanis Gruenenfe lder weight E&M 191 [lb_av] Juanis Gruenenfe lder height E&M 62 [in_i] Juanis Montejo lder Body Mass Index (Ratio) 33.47 kg/m2 Wagner Olivas blood pressure, diastolic 78 mm[Hg] Ki gigi Tyler blood pressure, systolic 122 mm[Hg] Denisse alvarado Tyler oxygen saturation, oximetry 98 % [place] Tyler respiratory rate E&M 16 /min [place] pulse rate 81 /min [place] weight E&M 183 [lb_av] [place] height E&M 62 [in_i] [facility] Body Mass Index (Ratio) 33.03 kg/m2 Valente Dickson MD blood pressure, resting No Padmaja Ram Vang blood pressure, diastolic 87 mm[Hg] Jocelyn Marksudeep GarciaVang blood pressure, systolic 148 mm[Hg] Candi Roque Vang oxygen saturation, oximetry 97 % Ciarra Vang respiratory rate E&M 18 /min Goreg murphy Vang pulse rate 78 /min Ciarra Lopes mar weight E&M 180.6 [lb_av] Ciarra hunteron height E&M 62 [in_i] Ciarra Lopes mar Body Mass Index (Ratio) 32.92 kg/m2 Valente Dickson MD blood pressure, cuff size regular Ke rri Antonieta blood pressure, diastolic 82 mm[Hg] Ke rri Antonieta blood pressure, systolic 149 mm[Hg] Richard Fung oxygen saturation, oximetry 95 % Juanis Fung respiratory rate E&M 16 /min Juanis wheeler pulse rate 83 /min Juanis del toroer weight E&M 180 [lb_av] Juanis Montejo lder height E&M 62 [in_i] Juanis Montejo lder ALLERGIES No Known Drug Allergies RESULTS Date Observation Value Provider Reference Range Interpretation Location 1 lipoprotein, beta, serum, point, quantitative, calculated 74 mg/dL [facility] 0-99 1 HDL cholesterol, serum 52 mg/dL [facility] >39 1 triglyceride, serum, random 177 mg/dL [facility] 0-149 High 1 cholesterol, serum 156 mg/dL [facility] 802-862 7523/06/1 1 alanine aminotransferase (SGPT), serum 18 1/L [facility] 0-32 1 aspartate aminotransferase (SGOT), serum 13 1/L [facility] 0-40 1 alkaline phosphatase, serum 66 1/L [facility] 48-121 1 bilirubin, serum, total <0.2 mg/dL [facility] 0.0-1.2 1 albumin/globulin ratio, serum 2.2 [facility] 1.2-2.2 1 globulin, serum 1.9 [facility] 1.5-4.5 1 albumin, serum 4.1 g/dL [facility] 3.8-4.9 1 protein, total, serum 6.0 g/dL [facility] 6.0-8.5 1 calcium, serum 8.8 mg/dL [facility] 8.7-10.3 1 carbon dioxide, venous blood 31 mmol/L [facility] 20-29 High 1 chloride, serum 101 mmol/L [facility] 96-106 1 potassium, serum 3.7 mmol/L [facility] 3.5-5.2 1 sodium, serum 144 mmol/L [facility] 535-175 6245/06/1 1 urea nitrogen/creatinine ratio, serum 14 [facility] 12-28 1 eGFR if 94 mL/min/{1 .73_m2} [facility] >59 1 eGFR if not 82 mL/min/{1 .73_m2} [facility] >59 1 creatinine, serum 0.79 mg/dL [facility] 0.57-1.00 1 urea nitrogen, blood 11 mg/dL [facility] 8-27 1 blood glucose, random 94 mg/dL [facility] 65-99 6 lipoprotein, beta, serum, point, quantitative, calculated 72 mg/dL [facility] 0-99 6 very low density lipoproteins 33 mg/dL [facility] 5-40 6 HDL cholesterol, serum 56 mg/dL [facility] >39 6 triglyceride, serum, random 167 mg/dL [facility] 0-149 High cholesterol, serum 161 mg/dL [facility] 781-607 9541/10/0 6 alanine aminotransferase (SGPT), serum 18 1/L [facility] 0-32 6 aspartate aminotransferase (SGOT), serum 18 1/L [facility] 0-40 6 alkaline phosphatase, serum 74 1/L [facility] 39-117 6 bilirubin, serum, total <0.2 mg/dL [facility] 0.0-1.2 albumin/globulin ratio, serum 1.6 [facility] 1.2-2.2 globulin, serum 2.5 [facility] 1.5-4.5 albumin, serum 4.1 g/dL [facility] 3.5-5.5 protein, total, serum 6.6 g/dL [facility] 6.0-8.5 calcium, serum 9.3 mg/dL [facility] 8.7-10.2 carbon dioxide, venous blood 25 mmol/L [facility] 20-29 chloride, serum 103 mmol/L [facility] 96-106 potassium, serum 4.1 mmol/L [facility] 3.5-5.2 6 sodium, serum 144 mmol/L [facility] 863-153 1079/10/0 6 urea nitrogen/creatinine ratio, serum 12 [facility] 9-23 6 eGFR if 89 mL/min/{1 .73_m2} [facility] >59 6 eGFR if not 77 mL/min/{1 .73_m2} [facility] >59 6 creatinine, serum 0.84 mg/dL [facility] 0.57-1.00 6 urea nitrogen, blood 10 mg/dL [facility] 6-24 6 blood glucose, random 85 mg/dL [facility] 65-99 HISTORY OF MEDICATION USE Medication Status Instructions Dates Provider Indications Com ments albuterol sulfate 90 mcg/actuation HFA aerosol inhaler active Inhale 2 puff using inhaler every six hours as needed Cristian Nacht nitroglycerin 0.4 mg tablet, sublingual active DISSOLVE 1 TABLET UNDER TONGUE EVERY 5 MINUTES FOR 3 TOTAL DOSES NEEDED CHEST PAIN. IF NO RELIEF AFTER 3RD DOSE GO TO THE ER [facility] RN Nitrostat 0.4 mg tablet, sublingual completed Place 1 tablet under tongue as directed apply one tab under tongue every 5 minutes for 3 total doses as needed for chest pain. If no relief after 3rd dose, go to ER - [facility] RN propranolol 10 mg tablet active Take 1 by mouth twice a day Juanis Fung cholecalciferol (vitamin D3) 1,250 mcg (50,000 unit) capsule active 1 capsule by mouth once a week Juanis Fung trazodone 100 mg tablet active Take 1 by mouth every night Juanis Fung famotidine 20 mg tablet active 1 tablet by mouth three times a day Juanis Fung gabapentin 300 mg capsule active Take 1 by mouth three times a day Juanis Fung cyclobenzaprine 10 mg tablet active Take 1 by mouth three times a day Juanis Fung dicyclomine 10 mg capsule active Take 1 by mouth three times a day Juanis Fung Topamax 100 mg tablet active Take 1 twice a day Juanis Fung Depakote 125 mg tablet,delayed release (DR/EC) active take one pill twice a day Juanis Fung Imitrex 100 mg tablet active tablet by mouth as needed Juanis Fung AMLODIPINE BESYLATE 5 MG ORAL TABLET completed one tablet daily Q HS - Juanis Fung Nitrostat 0.4 mg tablet, sublingual completed apply one tab under tongue every 5 minutes for 3 total doses as needed for chest pain. If no relief after 3rd dose, go to ER - [facility] RN TIZANIDINE HCL 4 MG ORAL CAPSULE completed take one at night as needed - Juanis Fung RANITIDINE HCL 300 MG ORAL CAPSULE completed one at bedtime - Juanis Fung ropinirole 2 mg tablet active Take 1 by mouth every night Juanis Fung hydrocodone-acetam inophen 5-325 mg tablet active 2 tablet by mouth every six hours as needed Juanis Fung morphine 15 mg tablet active tablet by mouth three times a day Juanis Fung Lipitor 10 mg tablet completed 1 tablet by mouth once a day - Cristian Lainez Cymbalta 60 mg capsule,delayed release(DR/EC) active once a day Juanis Fung LYRICA 300 MG ORAL CAPSULE completed once a day - Juanis Fung losartan-hydrochlo rothiazide 50-12.5 mg tablet active once a day Juanis Fung ESOMEPRAZOLE MAGNESIUM 40 MG ORAL CAPSULE DELAYED RELEASE completed once a day - Juanis Fung SOCIAL HISTORY Date Observation Value Provider social history E&M S moking History: Ca solorzano currently smokes every day. Ca solorzano has been counseled to quit. Cristian Fatou social history reviewed E&M revi ewed - no changes required Cristian Fatou smoking/tobacco cess ation, patient education and counseling yes Juanis Fung number of years as a smoker 40 a Juanis Fung smoking history, tot al pack/day 1 ppd Juanis Fung cigarette use yes Juanis cottrell smoking status Current every day smoker Mara Fung smoking/tobacco cess ation, patient education and counseling yes Juanis Fung number of years as a smoker 40 a Juanis Fung smoking history, tot al pack/day 1 ppd Juanis Fung cigarette use yes Juanis cottrell smoking status Current every day smoker Mara Fung smoking/tobacco cess ation, patient education and counseling yes Kehinde Olivas social history reviewed E&M revi ewed - no changes required Kehinde Olivas social history E&M S moking History: Ca solorzano currently smokes every day. Kehinde Olivas number of grandchildren [facility] alcohol use, average drinks per day social [facility] alcohol use yes [facility] number of years as a smoker 40 a [place] [facility] smoking history, tot al pack/day 1 ppd [place] [facility] cigarette use yes [facility] smoking status Current every day smoker K agustina Tyler social history E&M S moking History: P jo-anniva currently smokes every day. [facility] social history reviewed E&M revi ewed - no changes required [facility] alcohol use, average drinks per day social Ciarra Vang alcohol use yes Ciarra manuel number of years as a smoker 40 a Ciarra Vang smoking history, tot al pack/day 1 ppd Ciarra Vang cigarette use yes Ciarra german smoking status Current every day smoker Ashley Vang social history E&M S moking History: P atient currently smokes every day. [facility] social history reviewed E&M revi ewed - no changes required [facility] alcohol use, average drinks per day social Juanis Antonieta alcohol use yes Juanis Whiteshannen del toroer number of years as a smoker 40 a Juanis Antonieta smoking history, tot al pack/day 1 ppd Juanis Antonieta cigarette use yes Juanis Whitedarcykrys ronit smoking status Current every day smoker Mara garcespaulina Fung FAMILY HISTORY Family Member Condition Father Family History of Ao rtic Aneurysm: Mother Negative FH of Coron [place] [facility] INSURANCE PROVIDERS Payer name Policy type / Coverage type [place] [employer] party ID [facility] [facility] [id number] [facility] Medicaid 1 [id number] ADVANCE DIRECTIVES Name Date DISCUSSED - NO DECISION MADE TREATMENT PLAN Date Name Performer [id number],C, Abdoul Dickson MD [id number],S, T he following medications were removed from the medication list: Lipitor 10 Mg Tablet (Atorvastatin) ..... 1 tablet by mouth once a day Abdoul Dickson MD [id number],W, r ecent ER visit for sharp substernal CP radiating to back. ruled out for IN with negative trops and unremarkable EKG r ecommend regadenoson stress test since patient is limited by orthopedic issues p t underwent cath 10/2016 at [place] which showed no significant CAD H er updated medication list for this problem includes: Nitroglycerin 0.4 Mg Tablet, Sublingual (Nitroglycerin) ..... Dissolve 1 tablet under tongue every 5 minutes for 3 total doses as needed chest pain. if no relief after 3rd dose go to the er Propranolol 10 Mg Tablet (Propranolol) ..... Take 1 by mouth twice a day Abdoul Dickson MD [id number],W, B P today: 119/69 P rior BP: 102/62 (08/22/2020) Her updated medication list for this problem includes: Losartan-hydrochlorothiazide 50-12.5 Mg Tablet (Losartan-hydrochlorothiazide) ..... Once a day Propranolol 10 Mg Tablet (Propranolol) ..... Take 1 by mouth twice a day Cristian Lainez [id number],S, H er updated medication list for this problem includes: Lipitor 10 Mg Tablet (Atorvastatin) ..... 1 tablet by mouth once a day Cristian Lainez [id number],S, p t rolls her own cigarettes T he Patient was reencouraged to stop smoking. s chedule PFTs and low dose lung CT Cristian Lainez [id number],W, r ecent ER visit for sharp substernal CP radiating to back. ruled out for IN with negative trops and unremarkable EKG r ecommend regadenoson stress test since patient is limited by orthopedic issues p t underwent cath 10/2016 at [place] which showed no significant CAD Cristian Lainez Electrophysiology Abdoul rodriguez MD Electrophysiology: T he following medications were removed from the medication list: Lipitor 10 Mg Tablet (Atorvastatin) ..... 1 tablet by mouth once a day Abdoul Dickson MD Electrophysiology: r ecent ER visit for sharp substernal CP radiating to back. ruled out for IN with negative trops and unremarkable EKG r ecommend regadenoson stress test since patient is limited by orthopedic issues p t underwent cath 10/2016 at [place] which showed no significant CAD H er updated medication list for this problem includes: Nitroglycerin 0.4 Mg Tablet, Sublingual (Nitroglycerin) ..... Dissolve 1 tablet under tongue every 5 minutes for 3 total doses as needed chest pain. if no relief after 3rd dose go to the er Propranolol 10 Mg Tablet (Propranolol) ..... Take 1 by mouth twice a day Abdoul Dickson MD Electrophysiology: B P today: 119/69 P rior BP: 102/62 (08/22/2020) Her updated medication list for this problem includes: Losartan-hydrochlorothiazide 50-12.5 Mg Tablet (Losartan-hydrochlorothiazide) ..... Once a day Propranolol 10 Mg Tablet (Propranolol) ..... Take 1 by mouth twice a day Cristian Lainez Electrophysiology: H er updated medication list for this problem includes: Lipitor 10 Mg Tablet (Atorvastatin) ..... 1 tablet by mouth once a day Cristian Lainez Electrophysiology: p t rolls her own cigarettes T he Patient was reencouraged to stop smoking. s chedule PFTs and low dose lung CT Cristian Lainez Electrophysiology: r ecent ER visit for sharp substernal CP radiating to back. ruled out for IN with negative trops and unremarkable EKG r ecommend regadenoson stress test since patient is limited by orthopedic issues p t underwent cath 10/2016 at [place] which showed no significant CAD Cristian Lainez Electrophysiology Fo llow up :encouraged cessation.- education was done by Dr. Dickson in person Orders: C OMPREHENSIVE METABOLIC PANEL, W/EGFR (76007) L IPID PANEL (3400) C omplete Echo (CPT-93229) 9 9214 MOD 30-39min (CPT-99067) F VC - 33098 (53849) F RC - 27411 (47303) D LCO - 55171 (77846) T obacco cessation counseling, 3-10minutes (08493) Abdoul Dickson MD Electrophysiology Fo llow up : T he following medications were removed from the medication list: Amlodipine Besylate 5 Mg Oral Tablet (Amlodipine besylate) ..... One tablet daily q hs Her updated medication list for this problem includes: Propranolol Hcl 10 Mg Oral Tablet (Propranolol hcl) ..... Take one pill twice a day Losartan Potassium-hctz 50-12.5 Mg Oral Tablet (Losartan potassium-hctz) ..... Once a day R epeat echo B P today: 102/62 P rior BP: 122/78 (01/13/2018) Labs Reviewed: C reat: 0.84 (01/14/2018) C hol: 161 (01/14/2018) HDL: 56 (01/14/2018) Abdoul Dickson MD Electrophysiology Fo llow up :check lipid panel H er updated medication list for this problem includes: Lipitor 10 Mg Oral Tablet (Atorvastatin calcium) ..... One tab. daily Orders: COMPREHENSIVE METABOLIC PANEL, W/EGFR (04788) L IPID PANEL (6510) C omplete Echo (CPT-53777) 9 9214 MOD 30-39min (CPT-51280) F VC - 01972 (53860) F RC - 86260 (45241) D LCO - 39793 (36023) Abdoul Dickson MD Electrophysiology Follow up :enc ouraged cessation. Dana Espinal NP Electrophysiology Fo llow up :has appointment with [facility] rheumatology Dana Espinal NP Electrophysiology Follow up :johanna ck lipid panel Dana Espinal NP Electrophysiology Fo llow up : T he following medications were removed from the medication list: Amlodipine Besylate 5 Mg Oral Tablet (Amlodipine besylate) ..... One tablet daily q hs Her updated medication list for this problem includes: Propranolol Hcl 10 Mg Oral Tablet (Propranolol hcl) ..... Take one pill twice a day Losartan Potassium-hctz 50-12.5 Mg Oral Tablet (Losartan potassium-hctz) ..... Once a day R epeat echo Dana Espinal NP Electrophysiology:Or ders: Mono mathew Study Home (CPT-86090) Kehinde Olivas Electrophysiology:Or ders: X -Ray, Chest - Routine (CPT-23941) F VC - 29377 (42749) F RC - 67288 (22305) D LCO - 29765 (33549) 9 9215 HIGH Complex (CPT-85230) Her updated medication list for this problem includes: Amlodipine Besylate 5 Mg Oral Tablet (Amlodipine besylate) ..... One tablet daily q hs Losartan Potassium-hctz 50-12.5 Mg Oral Tablet (Losartan potassium-hctz) ..... Once a day Kehinde Olivas Electrophysiology:Or ders: 9 9215 HIGH Complex (CPT-55468) L IPID PANEL (2410) Her updated medication list for this problem includes: Lipitor 10 Mg Oral Tablet (Atorvastatin calcium) ..... One tab. daily Kehinde Olivas Electrophysiology:Or ders: E KG (CPT-01287) 9 9215 HIGH Complex (CPT-95476) C OMPREHENSIVE METABOLIC PANEL, W/EGFR (56814) Kehindeus Olivas Electrophysiology:Ch olesterol levels have improved. LDL is 85. H er updated medication list for this problem includes: Lipitor 10 Mg Tabs (Atorvastatin calcium) ..... One tab. daily Tammy Nathan Electrophysiology:Rosalind clay is not symptomatic with chest pain. Will have an echo done in one year to evaluate heart funciton. Tammyelza Mcleanha Cardiology New Patient :Will johanna ck her PFT's. Tammyelza Mcleanha Cardiology New Patie nt :Will have echo and adenosine stress test done. Tammy Mcleanha Date Name Low Dose Lung CT DLCO - 95171 FRC - 96093 FVC - 38795 Stress Regadenoson DLCO - 83994 FRC - 52357 FVC - 69057 Complete Echo LIPID PANEL COMPREHENSIVE METABO LIC PANEL, W/EGFR COMPREHENSIVE METABO LIC PANEL, W/EGFR LIPID PANEL DLCO - 89818 FRC - 74259 FVC - 74227 X-Ray, Chest - Routi ne Sleep Study Home DLCO - 78937 FRC - 50720 FVC - 51657 Complete Echo STR - Adenosine DLCO - 34889 FRC - 10836 FVC - 21698 Complete Echo HISTORY OF PROCEDURES Procedure Date Procedure Name Provider Procedure Notes S tatus Counseling LDCT Abdoul padron MD completed EKG Abdoul padron MD completed EKG Abdoul padron MD completed Schedule Followup Abdoul rodriguez MD in 1 yr completed EKG Abdoul padron MD completed Schedule Followup Abdoul rodriguez MD in 1 year completed EKG Abdoul padron MD completed SNOMED-CT: [id number] Current Medications Documented Abdoul Dickson MD completed FVC / MVV with bronchodilator - 45481 Abdoul Dickson MD completed FRC - 26991 Abdoul padron MD completed SpO2 - 76984 Abdoul padron MD completed DLCO - 96155 Abdoul padron MD completed EKG Abdoul padron MD completed SNOMED-CT: [id number] Current Medications Documented Abdoul Dickson MD completed
--- OUTSIDE RECORDS SUMMARY | 2024-05-22 10:27 | XMS_ITS | Encounter Summary ---
Author Organization [facility] Address [address] [place] [address] Care Team Providers Care Grain Scooper Name Role Phone Betty Singh RN Unavailable [phone] Panchito Ferraro MD Primary Care Provider [phone] Panchito Ferraro MD Primary Care Provider [phone] Lucy Ledesma RN Unavailable Unavailable Encounter Details Date Type Department Care Team (Late st Contact Info) Description 05/21/2021 Lab Requisition [facility] Care DermPath Lab [address] [place] [address] Moses Stein MD [address] [place] [address] Social History Tobacco Use Types Packs/Day Years Used Date Smoking Tobacco: Every Day Cigarettes 1 25 Smokeless Tobacco: Never Alcohol Use Standard Drinks/Week Comments Yes 0 (1 standard drink = 0.6 oz pur e alcohol) socially PHQ-2 Answer Date Recorded PHQ2 TOTAL SCORE 0 12/08/2020 Sex and Gender Information Value Date Recorded Sex Assigned at Female 07/06/2020 12:29 PM CDT Gender Identity Female 07/06/2020 12:29 PM CDT Sexual Orientation Straight 07/06/2020 12 :29 PM CDT documented as of this encounter Functional Status Functional Status Response Date of [...] person have difficulty concentrating/remembering/making decisions? No 11/13/2013 documented as of this encounter Plan of Treatment Not on file documented as of this encounter Procedures Procedure Name Priority Date/Time Associated Diagnosis Comments DERMATOPATHOLOGY Routine 05/20/2021 12:0 0 AM SPEECH THERAPIST EARLY INTERVENTION documented in this encounter Results * DERMATOPATHOLOGY (05/20/2021 12:00 AM SPEECH THERAPIST EARLY INTERVENTION) Case Report Dermatopathology Report Case: [id number] Authorizing Provider: Moses Stein MD Collected: 05/20/2021 12:00 AM Ordering Location: [facility] DermPath Lab Received: 05/21/2021 04:24 PM Pathologist: Mary Levi MD Specimen: Skin, right thigh 2 3:43 PM [facility] DERMATOPATHOLOGY LABORATORY Final Diagnosis Specimen A. 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 Path # [id number]. 2 3:43 PM [facility] DERMATOPATHOLOGY LABORATORY Gross Description Specimen A: Received is one formalin filled container labeled with the patient's name and designated right thigh. The specimen consists of a shave biopsy measuring [id number]. Jar 0. 2 3:43 PM [facility] DERMATOPATHOLOGY LABORATORY Microscopic Description Specimen A. SKIN, right thigh: There is an ulcer, beneath which there are vascular proliferation, fibroblasts, and an edematous stroma. There is adjacent epidermal hyperplasia. 2 3:43 PM [facility] DERMATOPATHOLOGY LABORATORY Disclaimer An external and internal positive and negative controls are appropriate for the histochemical, immunohistochemical and immunofluorescence stain(s) in this case (if any), except where stated explicitly. The performance characteristics of the stain(s) cited in this report were developed and its performance characteristic determined by the Dermatopathology Laboratory at [facility], directed by Dr. Maria Del Carmen Patel. These tests need not be, and therefore are not, approved by the [place] Food and Drug Administration. The tests are used for clinical purposes. Billing Codes Specimen Charges Stain Charges 84093 1 2 3:43 PM SPEECH THERAPIST EARLY INTERVENTION DERMATOPATHOLOGY LABORATORY Embedded Images 2 3:43 PM SPEECH THERAPIST EARLY INTERVENTION DERMATOPATHOLOGY LABORATORY Pathology/Cytolog y TISSUE SPECIMEN FROM SKIN / Unknown 05/20/2021 05/21/2021 4:24 PM SPEECH THERAPIST EARLY INTERVENTION Moses Stein MD LAB - PATHOLOGY/CYTO LOGY ORDERABLES DERMATOPATHOLOGY LABORATORY [facility] - Department of Dermatology [facility] Medicine [address] [place] [address], [address] [phone] documented in this encounter Visit Diagnoses Not on filedocumented in this encounter Care Teams Grain Scooper Relationship Specialty Start Date End Date Panchito Ferraro MD [address] [address] PCP - General 09/02/17 03/28/23 Panchito Ferraro MD [address] [place] [address] PCP - General Family Medicine 03/29/23 Betty Singh, RN Bottom Ironer 11/14/13 Lucy Ledesma, ERASMO Coordinator 06/22/23 documented as of this encounter
--- OUTSIDE RECORDS SUMMARY | 2024-05-22 10:27 | XMS_ITS | Encounter Summary ---
Author Organization [facility] Address [address] [place] [address] Care Team Providers Care Trading Specialist Name Role Phone Betty Singh RN Unavailable [phone] Panhcito Ferraro MD Primary Care Provider [phone] Panchito Ferraro MD Primary Care Provider [phone] Lucy Ledesma RN Unavailable Unavailable Encounter Details Date Type Department Care Team (Late st Contact Info) Description 03/25/2023 Telephone [facility] - Dermatology [address] [facility], [place] [address] Robert Kumar DO [address] [place] [address] [place] [address] Social History Tobacco Use Types Packs/Day Years [...] No 11/13/2013 documented as of this encounter Miscellaneous Notes * Telephone Encounter - Nelson Cortes - 03/25/2023 12:09 PM FULFILLMENT ASSOCIATE Another staff member was able to schedule patient for 03/29/23 at 9:[address] [facility] at [facility] ILLMENT ASSOCIATE * Telephone Encounter - Sudeep Maldonado - 03/25/2023 10:55 AM CST Manasa with Dr Ferraro's office called stating the patient has had some major changes to some lesions. Manasa wanted to see about getting the patient seen SAMIRA. Patient can be contacted for scheduling appt. If she cannot be reached contact Manasa at Dr Tran's office. ILLMENT ASSOCIATE documented in this encounter Plan of Treatment Not on file documented as of this encounter Visit Diagnoses Not on filedocumented in this encounter Care Teams Trading Specialist Relationship Specialty Start Date End Date Panchito Ferraro MD [address] [place] [address] [address] [place] [address] PCP - General 09/02/17 03/28/23 Panchito Ferraro MD [address] [place] [address] PCP - General Family Medicine 03/29/23 Betty Singh, RN Lawn Specialist 11/14/13 Lucy Ledesma, ERASMO Coordinator 06/22/23 documented as of this encounter
--- OUTSIDE RECORDS SUMMARY | 2024-05-22 10:27 | XMS_ITS | Clinical Summary ---
Author Organization [facility] Address [address] [facility] [place] [address] Care Team Providers Care Material Handling Warehouse Supervisor Name Role Phone Betty Singh RN Unavailable [phone] Panchito Ferraro MD Primary Care Provider [phone] Lucy Ledesma RN Unavailable Unavailable Source Comments [facility],non-owned Affiliates and Associated Physician Practices is amultiple site organization consisting of ambulatory clinics and hospital sitesin [place], [place], [place] and [place]. This disclosure is being madepursuant to the Care Everywhere program and may not contain all information available regarding this patient. Last updated 17.[facility] Allergies Active Allergy Reactions Criticality Noted Date Comments Sulfa Antibiotics Other 10/05/2022 Medications * Be aware that medications may not be up to date on this document. Alwaysverify current medications with the patient. Medication Sig [...] 06/21/2023 Dysphonia 05/28/2019 DDD (degenerative disc disease) Family History Medical History Relation Name Comments Thyroid Disease Daughter Cancer - Colon Father Multiple Sclerosis Sister Asthma Neg Hx CVA Neg Hx Cancer - Breast Neg Hx Cancer - Other Neg Hx Cancer - Skin, Melanoma Neg Hx Cancer - Skin, Non Melanoma Neg Hx Eczema Neg Hx Hemophilia Neg Hx Psoriasis Neg Hx Relation Name Status Comments Daughter Alive Father Sister Social History Tobacco Use Types Packs/Day Years [...] Mass Index 30.44 06/21/2023 1:30 PM CDT Plan of Treatment Health Maintenance Due Date Last Done Comments COLOGUARD (AGES 45-75) - COLON CA SCREENING 1959 COLON MONITORING 1959 COLONOSCOPY - COLON CA SCREENING 1959 CT COLONOGRAPHY - COLON CA SCREENING 1959 Colorectal Cancer Screening 1959 FIT - COLON CA SCREENING 1959 FLEX SIG - COLON CA SCREENING 1959 MAMMOGRAM 1959 PAP SMEAR 1959 DTAP/TDAP/TD VACCINES (1 - Tdap) 09/21/1978 PNEUMOCOCCAL VACCINE 50+ (1 of 2 - PCV) 09/21/1978 PNEUMOCOCCAL VACCINE (1 of 2 - PCV) 09/21/1978 LUNG CANCER SCREENING 09/21/2009 ZOSTER VACCINE (1 of 2) 09/21/2009 COVID-19 VACCINE (3 - season) 2023 07/10/2020, 06/19/2020 INFLUENZA VACCINE (#1) 2023 DEPRESSION SCREENING 04/11/2024 MEDICARE AWV CALENDAR YEAR 2024 SCREENING FOR DIABETES 06/20/2026 , 10/03/2020, 07/16/2016, Additional history exists Respiratory Syncytial Virus (RSV) Vaccine Pt: or over 60 yrs (1 - 1-dose 75+ series) 09/21/2034 HEPATITIS C SCREENING Completed 10/03/2020 HIV SCREENING Completed 02/15/2023 HEPATITIS B VACCINE Aged Out No longe r eligible based on patient's age to complete this topic HIB VACCINE Aged Out No longer eligi ble based on patient's age to complete this topic HPV VACCINE Aged Out No longer eligi ble based on patient's age to complete this topic MENINGOCOCCAL (Group B) VACCINE Aged Out No longer eligible based on patient's age to complete this topic MENINGOCOCCAL VACCINE Aged Out No edi jonathan eligible based on patient's age to complete this topic Medical Devices Implanted Type Area Adult Secondary Education Instructor Device Identifier Shelf Expiration Date Model / Serial / Lot Leonard Chambers Dbx Bone 1.0cc Implanted:Qty : 1 on 11/13/2013 by Loyd Grant MD at [facility] N/A: Spine Cervical [employer] 05/22/2016 [id number] / / [id number] Space Peek 5 X 16 X 14mm Implanted:Qty : 1 on 11/13/2013 by Loyd Grant MD at [facility] [place] N/A: Spine Cervical [employer] 08/08/2021 [id number] / / [id number] Procedures Procedure Name Priority Date/Time Associated Diagnosis Comments COMPREHENSIVE METABOLIC PANEL STAT 06/21/2023 2:41 PM CDT Lymphadenopathy HIV-1 HIV-2 ANTIBODY + HIV P24 AG PANEL 02/15/2023 1:19 PM SUPERVISOR DIMENS[employer] WAREHOUSE Other pruritus HEPATITIS C AB SCREEN RFLX NAAT QUANT Routine 10/03/2020 2:42 PM CDT Polyarthralgia from Last 3 Months or Most Recently Relevant to Health Maintenance Results * (ABNORMAL) COMPREHENSIVE METABOLIC PANEL (06/21/2023 2:41 PM CDT) BUN 16 7 - 26 mg/dL 06/21/2023 3:22 PM CDT [facility] Creatinine 0.83 0.56 - 0.96 mg/dL 06/21/2023 3:22 PM CDT [facility] Sodium 140 136 - 145 mmol/L 06/21/2023 3:22 PM [facility] Potassium 3.8 3.5 - 4.5 mmol/L 06/21/2023 3:22 PM [facility] Chloride 104 98 - 107 mmol/L 06/21/2023 3:22 PM [facility] CO2 28 22 - 29 mmol/L 06/21/2023 3:22 PM [facility] Glucose 90 70 - 115 mg/dL 06/21/2023 3:22 PM [facility] Calcium 9.3 8.4 - 10.2 mg/dL 06/21/2023 3:22 PM [facility] Protein Total 6.6 6.0 - 8.3 g/dL 06/21/2023 3:22 PM [facility] Albumin 4.1 3.4 - 5.0 g/dL 06/21/2023 3:22 PM [facility] Bilirubin Total 0.2 0.2 - 1.2 mg/dL 06/21/2023 3:22 PM [facility] Alkaline Phosphatase 69 40 - 150 U/L 06/21/2023 3:22 PM [facility] ALT 20 5 - 55 U/L 06/21/2023 3:22 PM [facility] AST 13 5 - 34 U/L 06/21/2023 3:22 PM [facility] Anion Gap 8 6 - 16 06/21/2023 3:22 PM [facility] BUN/Creatinine Ratio 19 7 - 23 06/21/2023 3:22 PM [facility] Osmolality Calculated 291 275 - 295 mOsm/kg 06/21/2023 3:22 PM [facility] Albumin/Globulin Ratio 1.6 1.1 - 2.3 06/21/2023 3:22 PM [facility] eGFR by CKD-EPI 79(L) >=90 mL/min/1.7 3 m2 06/21/2023 3:22 PM [facility] Blood BLOOD SPECIMEN / Unknown Lab Venipuncture / Unknown 06/21/2023 2:41 PM CDT 06/21/2023 2:57 PM CDT Snow Jerome MD LAB - CHEMISTRY MAURILIOE BRENDEN Performing Organization Address [facility] Co de Phone Number [facility] [address] [place] [address], [facility] [phone] * HIV-1 HIV-2 ANTIBODY + HIV P24 AG PANEL (02/15/2023 1:19 PM SUPER[employer]) HIV Screen 4th Generation w Reflex NON-REACT [...] purpose. For additional information please refer to http://education.[employer]/faq/UCA081 (This link is being provided for informational/ educational purposes only.) The performance of this assay has not been clinically validated in patients less than 2 years old. Test Performed at: [facility] [address] [place] [address] CRYSTAL SAHNI MD 02/15/2023 1:19 PM SUPER[employer] 02/15/2023 1:22 PM [employer]PER[employer] Mary Levi MD LAB - CHEMISTRY OR DERABLES Performing Organization Address City/[facility]/ZIP Co de Phone Number [facility] [address] [place] [address] * HEPATITIS C AB SCREEN RFLX NAAT QUANT (10/03/2020 2:42 PM CDT) Hepatitis C Antibody Non-react shayy Non-reac tive 10/03/2020 3:58 PM CDT [facility] Comment:Hepatitis C Antibody screen indicates [...] Maria Fulton MD LAB - CHEMISTRY KRYS Hebert Organization Address City/State/[facility] Co de Phone Number [facility] [address] [place] [address], [facility] [phone] from Last 3 Months or Most Recently Relevant to Health Maintenance Advance Directives * Full Code (Latest Code Status on File) Date Activated Date Inactivated Comments 11/13/2013 5:49 PM 11/14/2013 2:10 PM Care Teams Material Handling Warehouse Supervisor Relationship Specialty Start Date End Date Panchito Ferraro MD [address] [place] [phone] PCP - General Family Medicine 03/29/23 Betty Singh, RN Fudger 11/14/13 Lucy Ledesma, RN Coordinator 06/22/23
--- OUTSIDE RECORDS SUMMARY | 2024-05-22 10:27 | XMS_ITS | Patient Health Summary ---
Author Organization [facility] Address [address] [place] [address] Care Team Providers Care Accounts Payable Analyst Name Role Phone Betty Singh RN Unavailable [phone] Panchito Ferraro MD Primary Care Provider [phone] Lucy Ledesma RN Unavailable Unavailable Note from [facility],non-owned Affiliates and Associated Physician Practices is amultiple site organization consisting of ambulatory clinics and hospital sitesin [place], [place], [place] and [place]. This disclosure is being madepursuant to the Care Everywhere program and may not contain all information available regarding this patient. Last updated 17.[facility] Allergies * Sulfa Antibiotics(Other) Medications * Be aware that medications may not be up to date on this document. Alwaysverify current medications with the patient. * atorvastatin (LIPITOR) 10 MG tablet Take 1 (one) tablet by mouth once daily * losartan - hydroCHLOROthiazide (HYZAAR) 50-12.5 MG tablet(Started 01/01/2016) Take 1 (one) tablet by mouth * morphine CR 12hr (MS CONTIN) 15 MG tablet(Started 08/11/2016) Take 1 (one) tablet by mouth * esomeprazole (NEXIUM) 40 MG capsule Take 1 (one) capsule by mouth daily before breakfast * cyclobenzaprine (FLEXERIL) 10 MG tablet Take 1 (one) tablet by mouth 3 times daily as needed * HYDROcodone-acetaminophen (NORCO) 7.5-325 MG tablet Take 1 (one) tablet by mouth every 4 hours as needed * albuterol HFA (PROVENTIL;VENTOLIN;PROAIR) 108 (90 Base) MCG/ACT inhaler (Started 04/29/2019) Inhale 3 (three) puffs by mouth as needed * DULoxetine (CYMBALTA) 60 MG capsule(Started 11/27/2019) TK 1 C PO QD IN THE MORNING * lidocaine (LIDODERM) 5 % patch(Started 12/13/2019) * famotidine (PEPCID) 20 MG tablet(Started 12/16/2020) TAKE 1 TABLET BY MOUTH TWICE DAILY 1 refill by 12/16/2021 * busPIRone (Buspar) 5 MG tablet(Started 02/01/2023) Take 1 (one) tablet by mouth 2 times daily with morning and evening meal * dicyclomine (Bentyl) 10 MG capsule(Started 11/17/2022) Take 1 (one) capsule by mouth 3 times daily * Pramoxine HCl (CeraVe Itch Relief) 1 % CREA(Started 02/15/2023) Apply to affected areas up to 4 times a day as needed. Store in frie. 30 day supply. 5 refills by 02/15/2024 * permethrin (Elimite) 5 % cream(Started 03/18/2023) * topiramate (Topamax) 100 MG tablet(Started 02/15/2023) Take 1 (one) tablet by mouth 2 times daily * rOPINIRole (Requip) 2 MG tablet(Started 05/01/2023) Take 1 (one) tablet by mouth at bedtime * traZODone (Desyrel) 50 MG tablet(Started 05/03/2023) Take 1 (one) tablet by mouth Active Problems Problem Noted Date Diagnosed Date [...] Mass Index 30.44 06/21/2023 1:30 PM CDT Medical Devices Implanted Type Area Chemistry Intern Device Identifier Shelf Expiration Date Model / Serial / Lot Putty Trish Dbx Bone 1.0cc Implanted:Qty : 1 on 11/13/2013 by Loyd Grant MD at [facility] N/A: Spine Cervical Spinal [employer] 05/22/2016 [id number] / / [id number] Space Peek 5 X 16 X 14mm Implanted:Qty : 1 on 11/13/2013 by Loyd Grant MD at [facility] N/A: Spine Cervical [employer] 08/08/2021 [id number] / / [id number] Procedures * CT NECK SOFT TISSUE W CONT(Performed 06/24/2023) Performed for Lymphadenopathy * CT CHEST W CONTRAST(Performed 06/24/2023) Performed for Lymphadenopathy * US SOFT TISSUE HEAD NECK(Performed 06/23/2023) Performed for Lymphadenopathy, Cervical mass * KAPPA/LAMBDA LITE CHAIN FREE PANEL(Performed 06/21/2023) Performed for Lymphadenopathy * IGM BLOOD(Performed 06/21/2023) Performed for Lymphadenopathy * IGA BLOOD(Performed 06/21/2023) Performed for Lymphadenopathy * IGG BLOOD(Performed 06/21/2023) Performed for Lymphadenopathy * IMMUNOFIXATION BLOOD(Performed 06/21/2023) Performed for Lymphadenopathy * PROTEIN ELECTROPHORESIS BLOOD(Performed 06/21/2023) Performed for Lymphadenopathy * PHOSPHORUS BLOOD(Performed 06/21/2023) Performed for Lymphadenopathy * MAGNESIUM BLOOD(Performed 06/21/2023) Performed for Lymphadenopathy * COMPREHENSIVE METABOLIC PANEL(Performed 06/21/2023) Performed for Lymphadenopathy * CBC W AUTO DIFFERENTIAL(Performed 06/21/2023) Performed for Lymphadenopathy * CULTURE WOUND+GRAM STAIN(Performed 04/01/2023) Performed for Rash and other nonspecific skin eruption * RENUKA BLOOD TITER(Performed 03/29/2023) * RENUKA BLOOD SCREEN W/REFLEX TITER(Performed 03/29/2023) Performed for Rash and other nonspecific skin eruption * CBC W AUTO DIFFERENTIAL(Performed 03/29/2023) Performed for Rash and other nonspecific skin eruption * BULLOUS PEMPHIGOID 230 ANTIBODY(Performed 03/29/2023) Performed for Rash and other nonspecific skin eruption * BULLOUS PEMPHIGOID 180 ANTIBODY(Performed 03/29/2023) Performed for Rash and other nonspecific skin eruption * TISSUE TRANSGLUTAMINASE (IGG,IGA)(Performed 03/29/2023) Performed for Rash and other nonspecific skin eruption * RHEUMATOID FACTOR BLOOD QUANTITATIVE(Performed 03/29/2023) Performed for Rash and other nonspecific skin eruption * LDH BLOOD(Performed 02/15/2023) Performed for Other pruritus * HIV-1 HIV-2 ANTIBODY + HIV P24 AG PANEL(Performed 02/15/2023) Performed for Other pruritus * IRON + TIBC + FERRITIN(Performed 02/15/2023) Performed for Other pruritus * DERMATOPATHOLOGY(Performed 05/20/2021) * URIC ACID BLOOD(Performed 12/08/2020) Performed for Polyarthralgia * SS-A (SJOGREN'S) 52+60 ANTIBODIES(Performed 10/03/2020) Performed for Dysphonia * SS-B (SJOGREN'S) ANTIBODY(Performed 10/03/2020) Performed for Polyarthralgia * ERYTHROCYTE SEDIMENTATION RATE(Performed 10/03/2020) Performed for Polyarthralgia * C-REACTIVE PROTEIN(Performed 10/03/2020) Performed for Polyarthralgia * COMPREHENSIVE METABOLIC PANEL(Performed 10/03/2020) Performed for Polyarthralgia * CBC W AUTO DIFFERENTIAL(Performed 10/03/2020) Performed for Polyarthralgia * CK BLOOD(Performed 10/03/2020) Performed for Polyarthralgia * ALDOLASE(Performed 10/03/2020) Performed for Polyarthralgia * RHEUMATOID FACTOR BLOOD QUANTITATIVE(Performed 10/03/2020) Performed for Polyarthralgia * CYCLIC CITRUL PEPTIDE ANTIBODY IGG/IGA (CCP)(Performed 10/03/2020) Performed for Polyarthralgia * HEPATITIS C AB SCREEN RFLX NAAT QUANT(Performed 10/03/2020) Performed for Polyarthralgia * HEPATITIS B SURFACE ANTIGEN W RFLX CONFIRMATION(Performed 10/03/2020) Performed for Polyarthralgia * HEPATITIS B CORE ANTIBODY TOTAL(Performed 10/03/2020) Performed for Polyarthralgia * QUANTIFERON-TB GOLD PLUS 4-TUBE(Performed 10/03/2020) Performed for Dysphonia * XR HAND LEFT 3VW OR MORE(Performed 10/03/2020) Performed for Polyarthralgia * XR FOOT RIGHT WT BEARING 3VW(Performed 10/03/2020) Performed for Polyarthralgia * XR FOOT LEFT WT BEARING 3VW(Performed 10/03/2020) Performed for Polyarthralgia * XR HAND RIGHT 3VW OR MORE(Performed 10/03/2020) Performed for Polyarthralgia * XR SI JOINTS 3VW OR MORE(Performed 10/03/2020) Performed for Polyarthralgia * CT LUMBAR SPINE WO CONTRAST(Performed 12/25/2019) Performed for Lumbar spondylosis * IR DISCOGRAM LUMBAR(Performed 12/25/2019) Performed for Lumbar spondylosis * CT LUMBAR SPINE WO CONTRAST(Performed 11/26/2019) Performed for Lumbar spondylosis * MRI LUMBAR SPINE WO CONTRAST(Performed 07/05/2019) * TN LARYNGOSCOPY,FLEX FIBER,DIAGNOSTIC(Performed 05/28/2019) Performed for Hoarseness, Dysphagia, unspecified type * MRI CERVICAL SPINE WWO CONT(Performed 06/21/2018) Performed for Right arm numbness * CREATININE BLOOD - POCT (IP) [facility](Performed 06/21/2018) Performed for Right arm numbness * XR CERVICAL SPINE 4 OR 5VW(Performed 05/17/2018) Performed for Numbness and tingling * IMAGING/RADIOLOGY/XRAY RESULTS ORDER(Performed 04/25/2018) * TN DESTRUCT BENIGN LESION, 1-14(Performed 11/25/2017) Performed for Seborrheic keratoses, inflamed * XR CERVICAL SPINE 4 OR 5VW(Performed 06/22/2017) * XR CERVICAL SPINE 4 OR 5VW(Performed 01/26/2017) * XR CERVICAL SPINE 4 OR 5VW(Performed 08/11/2016) * XR CERVICAL SPINE 4 OR 5VW(Performed 07/28/2016) * XR CERVICAL SPINE 2 OR 3VW(Performed 07/16/2016) * BASIC METABOLIC PANEL (CALCIUM TOTAL)(Performed 07/16/2016) * CBC W AUTO DIFFERENTIAL(Performed 07/16/2016) * CBC W AUTO DIFFERENTIAL(Performed 07/16/2016) * FL RIMA SURGERY(Performed 07/15/2016) * BLOOD GASES ART COMPLETE [facility] OR(Performed 07/15/2016) * BLOOD GASES ART COMPLETE [facility] OR(Performed 07/15/2016) * TYPE + SCREEN PANEL(Performed 07/15/2016) * CROSSMATCH RBC LEUKOREDUCED(Performed 07/15/2016) * XR CHEST 2VW(Performed 06/29/2016) * BASIC METABOLIC PANEL (CALCIUM TOTAL)(Performed 06/29/2016) * PTT [facility](Performed 06/29/2016) * PT-INR [facility](Performed 06/29/2016) * CBC W AUTO DIFFERENTIAL(Performed 06/29/2016) * CBC W AUTO DIFFERENTIAL(Performed 06/29/2016) * EKG 12-LEAD(Performed 06/29/2016) * XR CERVICAL SPINE 4 OR 5VW(Performed 06/09/2016) * XR CERVICAL SPINE 2 OR 3VW(Performed 02/02/2016) * XR SI JOINTS 2VW OR LESS(Performed 09/04/2014) Performed for Pain in joint, multiple sites * XR LUMBAR SPINE 2 OR 3VW(Performed 09/04/2014) Performed for Pain in joint, multiple sites * XR FOOT BILAT 2VW(Performed 09/04/2014) Performed for Pain in joint, multiple sites * XR ANKLE BILAT 2VW(Performed 09/04/2014) Performed for Pain in joint, multiple sites * XR HAND BILAT 2VW(Performed 09/04/2014) Performed for Pain in joint, multiple sites * XR CERVICAL SPINE 2 OR 3VW(Performed 12/26/2013) Performed for S/P cervical spinal fusion * FL SWALLOWING FUNCTION STUDY(Performed 12/11/2013) Performed for Dysphagia * CARDIAC RHYTHM STRIP ORDER(Performed 11/15/2013) * XR CERVICAL SPINE 2 OR 3VW(Performed 11/14/2013) Performed for Fusion of spine of cervical region * XR SPINE 1 VIEW(Performed 11/13/2013) Performed for Neck pain * DISCECTOMY MICROSCOPIC CERVICAL ANTERIOR 1-2 LEVEL(Performed 11/13/2013) Performed for Cervical spondylosis without myelopathy * XR CHEST 2VW(Performed 03/24/2012) Performed for Other dyspnea and respiratory abnormality * XR HIP RIGHT 2VW OR MORE(Performed 03/19/2011) Performed for Right hip pain * D-DIMER(Performed 02/06/2011) * XR LUMBAR SPINE 2 OR 3VW(Performed 03/26/2008) Performed for Unspecified Backache Results * CT NECK SOFT TISSUE W CONT (06/24/2023 1:48 PM CDT) Anatomical Region Laterality Modality Head Computed Tomogra phy 06/24/2023 2:13 PM CDT Impressions 06/24/2023 8:18 PM CDT IMPRESSION: 1. No evidence of cervical lymphadenopathy or mass. 2. A 5 mm enhancing lesion at the right MCA trifurcation, which may represent an aneurysm versus overlapping vessels. Recommend a CT angiogram of the head to further evaluate. > Interpreting Provider: Silvino Thomas MD on 06/24/2023 8:18 PM Narrative 06/24/2023 8:18 PM CDT PROCEDURE: CT NECK SOFT TISSUE W CONT, DATE/TIME OF EXAM: 06/24/2023 1:49 PM, LOCATION [facility] INDICATION: R59.1: Lymphadenopathy ADDITIONAL CLINICAL INFORMATION: Ordering Provider Reason For Exam: Technologist Note: Additional: TECHNIQUE: CT of the neck was performed following the uneventful administration of 100 mL Isovue-370 intravenous contrast according to standard protocol. Contrast: IOPAMIDOL 76 % IV SOLN:100 mL COMPARISON: No prior study is available for comparison at the time of this dictation. FINDINGS: Extensive postoperative changes of anterior cervical discectomy and fusion at C4-C5 and C5-C7 and posterior spinal fusion at C3-C6. Significant beam hardening and streaky artifacts partially obscure the adjacent structures. 4 to 5 mm anterolisthesis of C7 on T1. Multiple small subcentimeter lymph nodes are noted in both sides of the neck with no evidence of cervical lymphadenopathy. The muscles of the neck appear normal. There is atherosclerotic disease involving the carotid bifurcations. The internal jugular veins appear normal. Fascial planes are preserved and the deep spaces of the neck appear normal. The nasopharynx, oropharynx, hypopharynx and larynx appear normal. The visualized airway is patent. The visualized portions of the posterior fossa and brain appear normal. The cervical spine appears normal. The visualized orbits and paranasal sinuses appear normal. The thyroid gland is normal. The visible lung apices are clear. There is a 5 mm enhancing lesion at the right MCA trifurcation, which may represent an aneurysm versus overlapping vessels. Recommend a CT angiogram of the head to further evaluate. Procedure Note Silvino Thomas MD - 06/24/2023 PROCEDURE: CT NECK SOFT TISSUE W CONT, DATE/TIME OF EXAM: :49 PM, LOCATION [facility] INDICATION: R59.1: Lymphadenopathy ADDITIONAL CLINICAL INFORMATION: Ordering Provider Reason For Exam: Technologist Note: Additional: TECHNIQUE: CT of the neck was performed following the uneventful administration of 100 mL Isovue-370 intravenous contrast according to standard protocol. Contrast: IOPAMIDOL 76 % IV SOLN:100 mL COMPARISON: No prior study is available for comparison at the time ofthis dictation. FINDINGS: Extensive postoperative changes of anterior cervical discectomy andfusion at C4-C5 and C5-C7 and posterior spinal fusion at C3-C6. Significantbeam hardening and streaky artifacts partially obscure the adjacentstructures. 4 to 5 mm anterolisthesis of C7 on T1. Multiple small subcentimeter lymph nodes are noted in both sides of the neck with no evidence of cervical lymphadenopathy. The muscles of theneck appear normal. There is atherosclerotic disease involving the carotid bifurcations. The internal jugular veins appear normal. Fascial planesare preserved and the deep spaces of the neck appear normal. Thenasopharynx, oropharynx, hypopharynx and larynx appear normal. The visualized airwayis patent. The visualized portions of the posterior fossa and brain appear normal.The cervical spine appears normal. The visualized orbits and paranasalsinuses appear normal. The thyroid gland is normal. The visible lung apices are clear. There is a 5 mm enhancing lesion at the right MCA trifurcation, whichmay represent an aneurysm versus overlapping vessels. Recommend a CTangiogram of the head to further evaluate. IMPRESSION: 1. No evidence of cervical lymphadenopathy or mass. 2. A 5 mm enhancing lesion at the right MCA trifurcation, which may represent an aneurysm versus overlapping vessels. Recommend a CTangiogram of the head to further evaluate. > Interpreting Provider: Silvino Thomas MD on 06/24/2023 8:18 PM Snow Jerome MD CT ORDERABLES * CT CHEST W CONTRAST (06/24/2023 1:46 PM CDT) Anatomical Region Laterality Modality Chest Computed Tomogra phy 06/24/2023 1:50 PM CDT Impressions 06/24/2023 2:08 PM CDT Impression: 1.No abnormally enlarged lymphadenopathy is identified. 2.Clear lungs. > Dictated by Long Goins MD (radiology services manager). IGhassan have personally reviewed and interpreted this examination/study. > Interpreting Provider: Ghassan Serra on 06/24/2023 2:08 PM Narrative 06/24/2023 2:08 PM CDT PROCEDURE: CT CHEST W CONTRAST, DATE/TIME OF EXAM: 06/24/2023 1:48 PM, LOCATION [facility] INDICATION: R59.1: Lymphadenopathy COMPARISON: None. TECHNIQUE: CT of the chest was performed following the uneventful administration of 100 mL of Isovue 370 intravenous contrast according to standard protocol. Findings: Lower Neck and Axillae: Normal. Lungs: No pulmonary parenchymal or airway process is present. No suspicious pulmonary nodules are identified. No pleural fluid or pneumothorax is present. Heart and Pericardium: The cardiac chambers are normal in size. No pericardial fluid or thickening is present. The coronary arteries are atherosclerotic. Mediastinum and Key: Multiple subcentimeter nonenlarged mediastinal lymph nodes are present. Thoracic Vasculature: The aorta and its branch vessels are atherosclerotic. Bones and Chest Wall: Bone windows demonstrate no suspicious lytic or blastic lesions. Cervical spinal fusion hardware is partially visualized. There are mild multilevel degenerative changes of the visualized thoracolumbar spine. Upper Abdomen: The gallbladder surgically absent. Otherwise, the visible portions of the upper abdominal organs are normal. Procedure Note Ghassan Serra MD - 06/24/2023 PROCEDURE: CT CHEST W CONTRAST, DATE/TIME OF EXAM: 06/24/2023 1:48 PM, LOCATION [facility] INDICATION: R59.1: Lymphadenopathy COMPARISON: None. TECHNIQUE: CT of the chest was performed following the uneventful administration of 100 mL of Isovue 370 intravenous contrast according to standard protocol. Findings: Lower Neck and Axillae: Normal. Lungs: No pulmonary parenchymal or airway process is present. No suspicious pulmonary nodules are identified. No pleural fluid or pneumothorax is present. Heart and Pericardium: The cardiac chambers are normal in size. No pericardial fluid orthickening is present. The coronary arteries are atherosclerotic. Mediastinum and Key: Multiple subcentimeter nonenlarged mediastinal lymph nodes are present. Thoracic Vasculature: The aorta and its branch vessels are atherosclerotic. Bones and Chest Wall: Bone windows demonstrate no suspicious lytic or blastic lesions.Cervical spinal fusion hardware is partially visualized. There are mildmultilevel degenerative changes of the visualized thoracolumbar spine. Upper Abdomen: The gallbladder surgically absent. Otherwise, the visible portions ofthe upper abdominal organs are normal. Impression: 1.No abnormally enlarged lymphadenopathy is identified. 2.Clear lungs. > Dictated by Long Goins MD (radiology services manager). IGhassan have personally reviewed and interpreted this examination/study. > Interpreting Provider: Ghassan Serra on 06/24/2023 2:08 PM Snow Jerome MD CT ORDERABLES * US SOFT TISSUE HEAD NECK (06/23/2023 4:03 PM CDT) Anatomical Region Laterality Modality Head Ultrasound 06/23/2023 6:07 PM CDT Impressions 06/23/2023 6:12 PM CDT IMPRESSION: Extensive shadowing in the region of the palpable abnormality which may represent a prominent sternoclavicular joint/costochondritis. Recommend CT or MRI for further evaluation. > Interpreting Provider: Ministerio Monte MD on 06/23/2023 6:12 PM Narrative 06/23/2023 6:12 PM CDT PROCEDURE: US SOFT TISSUE HEAD NECK DATE/TIME OF EXAM: 06/23/2023 4:04 PM CLINICAL INFORMATION: None relevant/not provided if blank. Indication: R59.1: Lymphadenopathy N88.8: Cervical mass Additional History: COMPARISON: None. TECHNIQUE: Ultrasound of the [neck' was performed at the area of the palpable abnormality. FINDINGS: Right thyroid: 1.4 x 1.9 x 4.7 cm, volume: 6.1 cc Left thyroid: 0.9 x 1.7 x 4.2 cm, volume: 2.9 cc The thyroid gland is homogeneous without nodules. Area of palpable abnormality was imaged with ultrasound. This corresponds to the region of the sternoclavicular joint. Extensive shadowing is noted in this area when compared to the other side which makes evaluation difficult. This may correspond to a prominent sternoclavicular joint/costochondritis. No superficial soft tissue masses are seen. No lymphadenopathy is visualized in the imaged area. Recommend CT or MRI for further evaluation. Procedure Note Yas Monte MD - 06/23/2023 PROCEDURE: US SOFT TISSUE HEAD NECK DATE/TIME OF EXAM: 06/23/2023 4:04 PM CLINICAL INFORMATION: None relevant/not provided if blank. Indication: R59.1: Lymphadenopathy N88.8: Cervical mass Additional History: COMPARISON: None. TECHNIQUE: Ultrasound of the [neck' was performed at the area of the palpable abnormality. FINDINGS: Right thyroid: 1.4 x 1.9 x 4.7 cm, volume: 6.1 cc Left thyroid: 0.9 x 1.7 x 4.2 cm, volume: 2.9 cc The thyroid gland is homogeneous without nodules. Area of palpable abnormality was imaged with ultrasound. Thiscorresponds to the region of the sternoclavicular joint. Extensive shadowing isnoted in this area when compared to the other side which makes evaluation difficult. This may correspond to a prominent sternoclavicular joint/costochondritis. No superficial soft tissue masses are seen. No lymphadenopathy is visualized in the imaged area. Recommend CT or MRIfor further evaluation. IMPRESSION: Extensive shadowing in the region of the palpable abnormality which may represent a prominent sternoclavicular joint/costochondritis. RecommendCT or MRI for further evaluation. > Interpreting Provider: Ministerio Monte MD on 06/23/2023 6:12 PM d Maurizio Jerome MD US ORDERABLES * IMMUNOFIXATION BLOOD (06/21/2023 2:41 PM CDT) Pathologist [facility] Immunofixation Serum Normal Pattern Normal Pattern 06/22/2023 9:26 PM CDT [facility] Comment: No monoclonal immunoglobulin detected by serum immunosubtraction. Donna Foster MD Pathology Resident, PGY- II These results and the interpretation have been reviewed and verified by the attending/teaching physician. *The electrophoresis pattern and the interpretation have been reviewed and verified by the teaching physician. Blood BLOOD SPECIMEN / Unknown Lab Venipuncture / Unknown 06/21/2023 2:41 PM CDT 06/21/2023 2:53 PM CDT Mhd Maurizio Jerome MD LAB - CHEMISTRY [facility] Organization Address City/State/ZIP Co de Phone Number [facility] [address] [place] [id number], [facility] [phone] * KAPPA/LAMBDA LITE CHAIN FREE PANEL (06/21/2023 2:41 PM CDT) [facility] [place] Quant Free Light Chain 11.56 3.30 - 19.40 mg/L 06/23/2023 6:17 PM CDT [employer] ([facility]) Comment: INTERPRETIVE INFORMATION: [place] Qnt Free Light Chains Undetected antigen excess is a rare event but cannot be excluded. Free light chain results should always be interpreted in conjunction with other clinical and laboratory findings. Lambda Free Light Chain Quantitative 10.85 5.71 - 26.30 mg/L 06/23/2023 6:17 PM CDT [employer] ([facility]) Comment: INTERPRETIVE INFORMATION: Lambda Qnt Free Light Chains Undetected antigen excess is a rare event but cannot be excluded. Free light chain results should always be interpreted in conjunction with other clinical and laboratory findings. [place]/Lambda Free Light Chain ratio 1.07 0.26 - 1.65 06/23/2023 6:17 PM CDT [employer] ([facility]) Comment: Performed By: [email or web address] [address] [place] [id number] [employer] Operator: Carl Joaquin MD, PhD CLIA Number: [id number] Blood BLOOD SPECIMEN / Unknown Lab Venipuncture / Unknown 06/21/2023 2:41 PM CDT 06/21/2023 2:53 PM CDT Drewd Maurizio Jerome MD LAB - CHEMISTRY [facility] ([facility]) [address] [place] [address], [facility] * (ABNORMAL) CBC WITH DIFFERENTIAL (06/21/2023 2:41 PM CDT) Only the most recent of7 resultswithin the time period is included. WBC 8.8 4.0 - 10.7 x10E9/L 06/21/2023 3:06 PM [facility] RBC Count 4.99 3.90 - 5.20 x10E12/L 06/21/2023 3:06 PM [facility] Hemoglobin 13.1 11.9 - 15.8 g/dL 06/21/2023 3:06 PM [facility] Hematocrit 40.0 34.8 - 46.1 % 06/21/2023 3:06 PM [facility] MCV 80.2 80.0 - 98.0 fL 06/21/2023 3:06 PM [facility] MCH 26.3(L) 26.7 - 33.6 pg 06/21/2023 3:06 PM [facility] MCHC 32.8 31.7 - 36.3 g/dL 06/21/2023 3:06 PM [facility] RDW-CV 20.6(H) 11.3 - 14.8 % 06/21/2023 3:06 PM [facility] Platelet Count 185 150 - 420 x10E9/L 06/21/2023 3:06 PM [facility] Neutrophil % 65.2 41.0 - 74.0 % 06/21/2023 3:06 PM [facility] Lymphocyte % 23.9 17.0 - 47.0 % 06/21/2023 3:06 PM [facility] Monocyte % 8.0 3.0 - 11.0 % 06/21/2023 3:06 PM [facility] Eosinophil % 2.4 0.0 - 7.0 % 06/21/2023 3:06 PM T [facility] Basophil % 0.3 0.0 - 1.6 % 06/21/2023 3:06 PM [facility] Immature Granulocytes % 0.2 0.0 - 1.0 % 06/21/2023 3:06 PM [facility] Neutrophil Absolute 5.73 1.60 - 7.50 x10E9/L 06/21/2023 3:06 PM [facility] Lymphocyte Absolute 2.10 1.00 - 4.40 x10E9/L 06/21/2023 3:06 PM [facility] Monocyte Absolute 0.70 0.15 - 1.00 x10E9/L 06/21/2023 3:06 PM [facility] Eosinophil Absolute 0.21 0.00 - 0.60 x10E9/L 06/21/2023 3:06 PM [facility] Basophil Absolute 0.03 0.00 - 0.13 x10E9/L 06/21/2023 3:06 PM [facility] Blood BLOOD SPECIMEN / Unknown Lab Venipuncture / Unknown 06/21/2023 2:41 PM CDT 06/21/2023 2:57 PM CDT Mhd Maurizio Jerome MD LAB - HEMATOLOGY ORD ERABLES [facility] [address] [place] [address], [facility] [phone] * (ABNORMAL) COMPREHENSIVE METABOLIC PANEL (06/21/2023 2:41 PM CDT) Only the most recent of2 resultswithin the time period is included. BUN 16 7 - 26 mg/dL 06/21/2023 3:22 PM [facility] Creatinine 0.83 0.56 - 0.96 mg/dL 06/21/2023 3:22 PM [facility] Sodium 140 136 - 145 mmol/L 06/21/2023 3:22 PM [facility] Potassium 3.8 3.5 - 4.5 mmol/L 06/21/2023 3:22 PM [facility] Chloride 104 98 - 107 mmol/L 06/21/2023 3:22 PM [facility] CO2 28 22 - 29 mmol/L 06/21/2023 3:22 PM [facility] Glucose 90 70 - 115 mg/dL 06/21/2023 3:22 PM [facility] Calcium 9.3 8.4 - 10.2 mg/dL 06/21/2023 3:22 PM [facility] Protein Total 6.6 6.0 - 8.3 g/dL 06/21/2023 3:22 PM [facility] Albumin 4.1 3.4 - 5.0 g/dL 06/21/2023 3:22 PM [facility] Bilirubin Total 0.2 0.2 - 1.2 mg/dL 06/21/2023 3:22 PM [facility] Alkaline Phosphatase 69 40 - 150 U/L 06/21/2023 3:22 PM [facility] ALT 20 5 - 55 U/L 06/21/2023 3:22 PM [facility] AST 13 5 - 34 U/L 06/21/2023 3:22 PM [facility] Anion Gap 8 6 - 16 06/21/2023 3:22 PM [facility] BUN/Creatinine Ratio 19 7 - 23 06/21/2023 3:22 PM [facility] Osmolality Calculated 291 275 - 295 mOsm/kg 06/21/2023 3:22 PM [facility] Albumin/Globulin Ratio 1.6 1.1 - 2.3 06/21/2023 3:22 PM [facility] eGFR by CKD-EPI 79(L) >=90 mL/min/1.7 3 m2 06/21/2023 3:22 PM [facility] Blood BLOOD SPECIMEN / Unknown Lab Venipuncture / Unknown 06/21/2023 2:41 PM CDT 06/21/2023 2:57 PM T Snow Jerome MD LAB - CHEMISTRY KRYS [facility] Organization Address City/State/ZIP Co de Phone Number [facility] [address] [place] [address], [facility] [phone] * PHOSPHORUS BLOOD (06/21/2023 2:41 PM CDT) Phosphorus 3.9 2.9 - 5.1 mg/dL 06/21/2023 3:22 PM CDT [facility] Blood BLOOD SPECIMEN / Unknown Lab Venipuncture / Unknown 06/21/2023 2:41 PM CDT 06/21/2023 2:57 PM CDT Snow Jerome MD LAB - CHEMISTRY ORDMan [facility] Performing Organization Address City/[facility]/ZIP Co de Phone Number [address] [address], [facility] [phone] * MAGNESIUM BLOOD (06/21/2023 2:41 PM CDT) Pathologist [facility] Magnesium 2.0 1.6 - 2.6 mg/dL 06/21/2023 3:22 PM CDT [facility] Blood BLOOD SPECIMEN / Unknown Lab Venipuncture / Unknown 06/21/2023 2:41 PM CDT 06/21/2023 2:57 PM CDT Snow Jerome MD LAB - CHEMISTRY ORDMan [facility] Performing Organization Address City/[facility]/ZIP Co de Phone Number [address] [address], [facility] [phone] * PROTEIN ELECTROPHORESIS BLOOD (06/21/2023 2:41 PM CDT) Pathologist [facility] Interpretation Serum PE Normal Pattern Normal Pattern 06/22/2023 9:25 PM CDT [facility] Comment: Serum capillary electrophoresis shows characteristic bands corresponding to albumin, alpha and beta globulins and polyclonal immunoglobulins. No monoclonal immunoglobulin detected. Non-secretory myeloma (NSM), light chain-only myeloma, and other disorders associated with light chains cannot be excluded based on this result. Free light chain measurements in serum (and possibly urine) are recommended for more complete evaluation of plasma cell disorders. Ignacio Upton MD Pathology Resident PGY-4 Pager: [phone] These results and the interpretation have been reviewed and verified by the attending/teaching physician. *The electrophoresis pattern and the interpretation have been reviewed and verified by the teaching physician. Protein Total 6.3 6.0 - 8.3 g/dL 06/22/2023 9:25 PM CDT [facility] Albumin 4.2 3.3 - 5.6 g/dL 06/22/2023 9:25 PM CDT [facility] Alpha-1 Globulins 0.3 0.2 - 0.4 g/dL 06/22/2023 9:25 PM CDT [facility] Alpha-2 Globulins 0.7 0.5 - 1.0 g/dL 06/22/2023 9:25 PM CDT [facility] Beta Globulins 0.7 0.6 - 1.1 g/dL 06/22/2023 9:25 PM CDT [facility] Gamma Globulins 0.6 0.6 - 1.6 g/dL 06/22/2023 9:25 PM CDT [facility] Blood BLOOD SPECIMEN / Unknown Lab Venipuncture / Unknown 06/21/2023 2:41 PM CDT 06/21/2023 2:53 PM CDT nSow Jerome MD LAB - CHEMISTRY KRYS [facility] Performing Organization Address City/[facility]/ZIP Co de Phone Number [address] [address], [place] [phone] * IGM BLOOD (06/21/2023 2:41 PM CDT) IgM 53 37 - 286 mg/dL 06/21/2023 3:19 PM CDT [facility] Blood BLOOD SPECIMEN / Unknown Lab Venipuncture / Unknown 06/21/2023 2:41 PM CDT 06/21/2023 2:53 PM CDT Snow Jerome MD LAB - CHEMISTRY [facility] [address] [address], [place] [phone] * (ABNORMAL) IGG BLOOD (06/21/2023 2:41 PM CDT) [facility] IgG 671(L) 767 - 1,590 mg/dL 06/21/2023 3:19 PM CDT [facility] Blood BLOOD SPECIMEN / Unknown Lab Venipuncture / Unknown 06/21/2023 2:41 PM CDT 06/21/2023 2:53 PM CDT Snow Jerome MD LAB - CHEMISTRY [facility] [address] [address], [facility] [phone] * IGA BLOOD (06/21/2023 2:41 PM CDT) [facility] IgA 141 61 - 356 mg/dL 06/21/2023 3:19 PM CDT [facility] Blood BLOOD SPECIMEN / Unknown Lab Venipuncture / Unknown 06/21/2023 2:41 PM CDT 06/21/2023 2:53 PM CDT Snow Jerome MD LAB - CHEMISTRY [facility] [address] [address], [place] [phone] * CULTURE WOUND+GRAM STAIN (04/01/2023 11:00 AM ASSEMBLY LINE UPHOLSTERER) [facility] Culture Aerobic [facility] Comment: CULTURE, AEROBIC BACTERIA WITH GRAM STAIN Micro Number: [id number] Test Status: Final Specimen Source: Skin Specimen Quality: Adequate Gram Stain: No organisms or white blood cells seen Result: Growth of skin cosme (note: Growth does not include S. aureus, beta-hemolytic Streptococci or P. aeruginosa). NO COLLECTION DATE RECEIVED. WE HAVE USED THE DATE THE SPECIMEN WAS RECEIVED BY THIS LABORATORY THE COLLECTION DATE. IF THIS IS INCORRECT, PLEASE CONTACT CLIENT SERVICES. PHONE NUMBER: [phone] Test Performed at: [facility] [address] CRYSTAL SAHNI MD Microbiology TISSUE SPECIMEN FROM SKIN / Unknown 03/30/2023 12:29 AM ASSEMBLY LINE UPHOLSTERER Mariia Santos MD LAB - MICROBIOLOGY O RDERABLES Performing Organization Address [facility] [place] [address] * BULLOUS PEMPHIGOID 180 ANTIBODY (03/29/2023 2:40 PM ASSEMBLY LINE UPHOLSTERER) Bullous pemphigoid (BP 180) Antibody <5 U/mL [facility] Comment: Reference Range: NEGATIVE: <=14 POSITIVE: >=15 Test Performed at: [facility] [address] [address] WYATT FORBES MD,PHD,STEFANI Blood BLOOD SPECIMEN / Unknown 03/29/2023 2:40 PM [employer]SEMBL[employer] LINE UPHOLSTERER 03/29/2023 2:44 PM [employer]SEMBL[employer] LINE UPHOLSTERER Mariia Santos MD LAB - SEROLOGY ORDER STEFAN Performing Organization Address [facility] [place] [address] * BULLOUS PEMPHIGOID 230 ANTIBODY (03/29/2023 2:40 PM ASSEMBLY LINE UPHOLSTERER) Bullous pemphigoid 230 Antibody IgG <9 <9 U/mL [facility] Comment: Test Performed at: [facility] [address] [address] WYATT FORBES MD,PHD,STEFANI Blood BLOOD SPECIMEN / Unknown 03/29/2023 2:40 PM ASSEM[employer] LINE UPHOLSTERER 03/29/2023 2:44 PM ASSEMBLY LINE UPHOLSTERER Mariia Santos MD LAB - CHEMISTRY [facility] Performing Organization Address [facility]/[place] [address] * TISSUE TRANSGLUTAMINASE (IGG,IGA) (03/29/2023 2:40 PM ASSEMBL[employer] LINE UPHOLSTERER) TTG Antibody IgG <1.0 U/mL [facility] Comment: Value Interpretation ----- <15.0 Antibody not detected > or = 15.0 Antibody detected TTG Antibody IgA <1.0 U/mL [facility] Comment: Value Interpretation ----- <15.0 Antibody not detected > or = 15.0 Antibody detected Test Performed at: [facility] [address] [address] DULCE Oliverio HÉCTOR Blood BLOOD SPECIMEN / Unknown 03/29/2023 2:40 PM ASSEMBL[employer] LINE UPHOLSTERER 03/29/2023 2:44 PM ASSEMBLY LINE UPHOLSTERER Mariia Santos MD LAB - CHEMISTRY KR[facility] Performing Organization Address [facility] de Phone Number [facility] [address] [place] [address] * RHEUMATOID FACTOR BLOOD QUANTITATIVE (03/29/2023 2:40 PM ASSEMBLY LINE UPHOLSTERER) Only the most recent of2 resultswithin the time period is included. [facility] Rheumatoid Factor <14 <14 IU/mL [facility] Comment: Test Performed at: [facility] [place] [address] [place] [address] CRYSTAL SAHNI MD Blood BLOOD SPECIMEN / Unknown 03/29/2023 2:40 PM ASSEMBLY LINE UPHOLSTERER 03/29/2023 2:44 PM ASSEMBLY LINE UPHOLSTERER Mariia Santos MD LAB - CHEMISTRY KR[facility] Performing Organization Address [facility] Co de Phone Number [facility] [address] [place] [address] * (ABNORMAL) RENUKA BLOOD TITER (03/29/2023 2:40 PM ASSEMBLY LINE UPHOLSTERER) [facility] RENUKA 1:40(H) titer [facility] Comment: A low level RENUKA titer may be present in pre-clinical autoimmune diseases and normal individuals. Reference Range <1:40 Negative 1:40-1:80 Low Antibody Level >1:80 Elevated Antibody Level RENUKA Pattern Nuclear, Speckled( A) [facility] Comment: Speckled pattern is associated with mixed connective tissue disease (MCTD), systemic lupus erythematosus (SLE), Sjogren's syndrome, dermatomyositis, and systemic sclerosis/polymyositis overlap. AC-2,4,5,29: Speckled International Consensus on RENUKA Patterns (https://doi.org/10.1515/ekiz-6162-3118) Test Performed at: [facility] [address] [facility] [place] [address] CRYSTAL SAHNI MD 03/29/2023 2:40 PM [employer]SEM[employer] LINE UPHOLSTERER 03/29/2023 2:44 PM ASSEMBLY LINE UPHOLSTERER Mariia Santos MD LAB - CHEMISTRY [facility] Performing Organization Address [facility] Co de Phone Number [facility] [address] [place] [address] * (ABNORMAL) RENUKA BLOOD SCREEN W/REFLEX TITER (03/29/2023 2:40 PM ASSEMBLY LINE UPHOLSTERER) Pathologist [facility] RENUKA Screen POSITIVE( A) NEGATIVE [facility] Comment: RENUKA IFA is a first line screen for detecting the presence of up to approximately 150 autoantibodies in various autoimmune diseases. A positive RENUKA IFA result is suggestive of autoimmune disease and reflexes to titer and pattern. Further laboratory testing may be considered if clinically indicated. For additional information, please refer to http://education.[employer]/faq/NPD914 (This link is being provided for informational/ educational purposes only.) Test Performed at: [facility] [address] [facility] [place] [address] CRYSTAL SAHNI MD Blood BLOOD SPECIMEN / Unknown 03/29/2023 2:40 PM ASSEM[employer] LINE UPHOLSTERER 03/29/2023 2:44 PM ASSEMBLY LINE UPHOLSTERER Mariia Santos MD LAB - CHEMISTRY [facility] Performing Organization Address City/[facility]/ZIP Co de Phone Number [facility] [address] [place] [address] * HIV-1 HIV-2 ANTIBODY + HIV P24 AG PANEL (02/15/2023 1:19 PM ASSEMBLY LINE UPHOLSTERER) Pathologist [facility] HIV Screen 4th Generation w Reflex NON-REACT SHAYY NON-REACT SHAYY [facility] Comment: HIV-1 antigen and HIV-1/HIV-2 antibodies were [...] purpose. For additional information please refer to http://education.[employer]/faq/KJY745 (This link is being provided for informational/ educational purposes only.) The performance of this assay has not been clinically validated in patients less than 2 years old. Test Performed at: [place] [address] CRYSTAL SAHNI MD 02/15/2023 1:19 PM ASSEMBLY LINE UPHOLSTERER 02/15/2023 1:22 PM ASSEMBLY LINE UPHOLSTERER Mary Levi MD LAB - CHEMISTRY OR DERABLES Performing Organization Address [facility] de Phone Number [facility] [address] [place] [address] * IRON + TIBC + FERRITIN (02/15/2023 1:19 PM ASSEMBLY LINE UPHOLSTERER) Pathologist [facility] Iron 76 45 - 160 mcg/dL [facility] TIBC 285 250 - 450 mcg/dL (calc) [facility] % Saturation 27 16 - 45 % (calc) [facility] Ferritin 26 16 - 288 ng/mL [facility] Comment: Test Performed at: [facility] [address] CRYSTAL SAHNI MD 02/15/2023 1:19 PM ASSEMBLY LINE UPHOLSTERER 02/15/2023 1:22 PM ASSEMBLY LINE UPHOLSTERER Mary Levi MD LAB - CHEMISTRY OR DERABLES Performing Organization Address [facility] Co de Phone Number [facility] [address] [place] [address] * LDH BLOOD (02/15/2023 1:19 PM ASSEMBLY LINE UPHOLSTERER) Pathologist [facility] LD-Total 177 120 - 250 U/L [facility] Comment: Test Performed at: [facility] [address] [place] [address] CRYSTAL SAHNI MD 02/15/2023 1:19 PM ASSEMBLY LINE UPHOLSTERER 02/15/2023 1:22 PM ASSEMBLY LINE UPHOLSTERER Mary Levi MD LAB - CHEMISTRY OR DERABLES [address] [address] * DERMATOPATHOLOGY (05/20/2021 12:00 AM ASSEMBLY LINE UPHOLSTERER) Case Report Dermatopathology Report Case: [id number] Authorizing Provider: Moses Stein MD Collected: 05/20/2021 12:00 AM Ordering Location: [facility] DermPath Lab Received: 05/21/2021 04:24 PM Pathologist: Mary Levi MD Specimen: Skin, right thigh 2 3:43 PM [facility] DERMAT[facility] Final Diagnosis Specimen A. 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 Path # [id number]. 2 3:43 PM [facility] DERMATOPATH[facility] Gross Description Specimen A: Received is one formalin filled container labeled with the patient's name and designated right thigh. The specimen consists of a shave biopsy measuring [id number]. Jar 0. 2 3:43 PM [facility] DERMATOPATHOLOGY [facility]OR[facility]ORY Microscopic Description Specimen A. SKIN, right thigh: There is an ulcer, beneath which there are vascular proliferation, fibroblasts, and an edematous stroma. There is adjacent epidermal hyperplasia. 2 3:43 PM [facility] DERMATOPATHOLOGY [facility]ORATORY Disclaimer An external and internal positive and negative controls are appropriate for the histochemical, immunohistochemical and immunofluorescence stain(s) in this case (if any), except where stated explicitly. The performance characteristics of the stain(s) cited in this report were developed and its performance characteristic determined by the Dermatopathology Laboratory at [facility], directed by Dr. Maria Del Carmen Patel. These tests need not be, and therefore are not, approved by the [place] Food and Drug Administration. The tests are used for clinical purposes. Billing Codes Specimen Charges Stain Charges 80288 1 2 3:43 PM [facility] UPHOLSTERER DERMATOPATHOLOGY LABORATORY Embedded Images 2 3:43 PM [facility] UPHOL[facility] DERMATOPATHOLOGY LABORATORY Pathology/Cytolog y TISSUE SPECIMEN FROM SKIN / Unknown 05/20/2021 05/21/2021 4:24 PM ASSEMBLY LINE UPHOLSTERER Moses Stein MD LAB - PATHOLOGY/CYTO LOGY ORDERABLES DERMATOPATHOLOGY LABORATORY [facility] Department of Dermatology [facility] [address] [facility], [address]rd Floor [address] [phone] * URIC ACID BLOOD (12/08/2020 12:57 PM CDT) Uric Acid 4.9 2.6 - 6.0 mg/dL 12/08/2020 1:38 PM CDT [facility] Blood BLOOD SPECIMEN / Unknown Lab Venipuncture / Unknown 12/08/2020 12:57 PM CDT 12/08/2020 1:12 PM CDT Ana Maria Fulton MD LAB - CHEMISTRY ORDMan [facility] [address] [phone], [facility] [phone] * HEPATITIS C AB SCREEN RFLX NAAT QUANT (10/03/2020 2:42 PM CDT) Hepatitis C Antibody Non-react shayy Non-reac tive 10/03/2020 3:58 PM CDT [facility] Comment:Hepatitis C Antibody screen indicates no [...] Fulton MD LAB - CHEMISTRY [facility] Organization Address City/State/ZIP Co de Phone Number [facility] [address] [place] [address], [facility] [phone] * SS-A (SJOGREN'S) 52+60 ANTIBODIES (10/03/2020 2:42 PM CDT) SS-A 52 Antibody 2 0 - 40 AU/mL 10/06/2020 5:47 AM CDT [employer] ([facility]) Comment: INTERPRETIVE INFORMATION: SSA-52 (Ro52) (NIMA) Antibody, IgG 29 AU/mL or Less ............. Negative 30 - 40 AU/mL ................ Equivocal 41 AU/mL or Greater .......... Positive SSA-52 (Ro52) and/or SSA-60 (Ro60) antibodies are associated with a diagnosis of Sjogren syndrome, systemic lupus erythematosus (SLE), and systemic sclerosis. SSA-52 antibody overlaps significantly with the major SSc-related antibodies. SSA-52 (Ro52) antibody occurs frequently in patients with inflammatory myopathies, often in the presence of interstitial lung disease. SS-A 60 Antibody 1 0 - 40 AU/mL 10/06/2020 5:47 AM CDT [employer] ([facility]) Comment: REFERENCE INTERVAL: SSA-60 (Ro60) (NIMA) Antibody, IgG 29 AU/mL or Less ............. Negative 30 - 40 AU/mL ................ Equivocal 41 AU/mL or Greater .......... Positive Performed By: [facility] [address] [place] [address] Absorber Operator: Dejah John MD Blood BLOOD SPECIMEN / Unknown Lab Venipuncture / Unknown 10/03/2020 2:42 PM CDT 10/03/2020 2:56 PM CDT Ana Maria Fulton MD LAB - CHEMISTRY [facility]YS [facility]) [address] [place] [address], [facility] * QUANTIFERON-TB GOLD PLUS 4-TUBE (10/03/2020 2:42 PM CDT) QuantiFERON NIL 0.01 IU/mL 10:07 PM CDT [facility] ([facility]) Comment: Performed By: [employer] [address] [place] [address] Absorber Operator: Dejah John MD QuantiFERON TB Gold Plus Negative Negative 10/06/2020 10:07 PM CDT [facility] ([facility]) Comment: Interpretive Data: Quantiferon TB Gold Plus Interferon gamma release is measured for specimens from each of the four collection tubes. A qualitative result (Negative, Positive, or Indeterminate) is based on interpretation of the four values, NIL, MITOGEN minus NIL (MITOGEN-NIL), TB1 minus NIL (TB1-NIL), and TB2 minus NIL (TB2-NIL). The NIL value represents nonspecific reactivity produced by the patient specimen. The MITOGEN-NIL value serves as the positive control for the patient specimen, demonstrating successful lymphocyte activity. The TB1-NIL tube specifically detects CD4+ lymphocyte reactivity, specifically stimulated by the TB1 antigens. The TB2-NIL tube detects both CD4+ and CD8+ lymphocyte reactivity, stimulated by TB2 antigens. An overall Negative result does not completely rule out TB infection. A false-positive result in the absence of other clinical evidence of TB infection is not uncommon. Refer to: Updated Guidelines for Using Interferon Gamma Release Assays to Detect Mycobacterium tuberculosis Infection --- [place], 2010 (http://www.cdc.gov/mmwr/preview/mmwrhtml/dk4031k2.htm), for more information concerning test performance in low-prevalence populations and use in occupational screening. QuantiFERON Plus TB1 Minus NIL 0.00 0.00 - 0.34 IU/mL 10/06/2020 10:07 PM CDT [facility] ([facility]) QuantiFERON Plus TB2 Minus NIL 0.00 0.00 - 0.34 IU/mL 10/06/2020 10:07 PM CDT [facility] ([facility]) QuantiFERON Mitogen Minus NIL 8.43 IU/mL 10/06/2020 10:07 PM CDT [facility]) Blood BLOOD SPECIMEN / Unknown Lab Venipuncture / Unknown 10/03/2020 2:42 PM CDT 10/03/2020 3:01 PM CDT Ana Maria Fulton MD LAB - CHEMISTRY ORDE BRENDEN [facility]) [address] [place] [address], [facility] * CYCLIC CITRUL PEPTIDE ANTIBODY IGG/IGA (CCP) (10/03/2020 2:42 PM CDT) Pathologist [facility] CCP Antibodies IgG/IgA 4 0 - 19 units 10/07/2020 1:06 AM CDT [facility] ([facility]) Comment: Negative <20 Weak positive 20 - 39 Moderate positive 40 - 59 Strong positive >59 Blood BLOOD SPECIMEN / Unknown Lab Venipuncture / Unknown 10/03/2020 2:42 PM CDT 10/03/2020 10:40 PM CDT Narrative [facility] ([facility]) - 10/07/2020 1:06 AM CDT Performed at: [address] [place] [id number] Head Golf Coach: Julee Martinez MD, Phone: [phone] Ana Maria Fulton MD LAB - SEROLOGY [facility] ([facility]) [address] [place] [address] * C-REACTIVE PROTEIN (10/03/2020 2:42 PM CDT) C-Reactive Protein 0.5 <=0.5 mg/dL 10/03/2020 3:38 PM CDT [facility] Blood BLOOD SPECIMEN / Unknown Lab Venipuncture / Unknown 10/03/2020 2:42 PM CDT 10/03/2020 2:57 PM CDT Ana Maria Fulton MD LAB - CHEMISTRY [facility] [address] [id number] [place] [address], [facility] [phone] * SS-B (SJOGREN'S) ANTIBODY (10/03/2020 2:42 PM CDT) SS-B Antibody 0 0 - 40 AU/mL 10/06/2020 5:47 AM CDT [employer] ([facility]) Comment: INTERPRETIVE INFORMATION: SSB (La) (NIMA) Ab, IgG 29 AU/mL or Less ............. Negative 30 - 40 AU/mL ................ Equivocal 41 AU/mL or Greater .......... Positive SSB (La) antibody is seen in 50-60% of Sjogren syndrome cases and is specific if it is the only NMIA antibody present. 15-25% of patients with systemic lupus erythematosus (SLE) and 5-10% of patients with progressive systemic sclerosis (PSS) also have this antibody. Performed By: [facility] [address] [place] [address] Absorber Operator: Dejah John MD Blood BLOOD SPECIMEN / Unknown Lab Venipuncture / Unknown 10/03/2020 2:42 PM CDT 10/03/2020 2:56 PM CDT Ana Maria Fulton MD LAB - CHEMISTRY KR[facility]) [address] * ALDOLASE (10/03/2020 2:42 PM CDT) Aldolase 3.7 1.5 - 8.1 U/L 10/05/2020 4:13 PM CDT [employer] ([facility]) Comment: REFERENCE INTERVAL: Aldolase Access complete set of age- and/or gender-specific reference intervals for this test in the [facility] Test Directory ([employer]). Performed By: [facility] [address] [place] [address] Absorber Operator: Dejah John MD Blood BLOOD SPECIMEN / Unknown Lab Venipuncture / Unknown 10/03/2020 2:42 PM CDT 10/03/2020 2:57 PM CDT Ana Maria Fulton MD LAB - CHEMISTRY [facility] Performing Organization Address City/[facility]/ZIP Co de Phone Number [facility] ([facility]) [address] [place] [address] * ERYTHROCYTE SEDIMENTATION RATE (10/03/2020 2:42 PM CDT) Erythrocyte Sedimentation Rate Westergren 16 0 - 30 MM/HR 10/03/2020 3:21 PM CDT [facility] Blood BLOOD SPECIMEN / Unknown Lab Venipuncture / Unknown 10/03/2020 2:42 PM CDT 10/03/2020 2:59 PM CDT Ana Maria Fulton MD LAB - HEMATOLOGY ORD YANI Performing Organization Address [facility]/ZIP Co de Phone Number [address] [address], [place] [phone] * HEPATITIS B CORE ANTIBODY (10/03/2020 2:42 PM CDT) HBc Antibody Total Non-reacti ve Non-reacti ve 10/03/2020 3:58 PM CDT [facility] Blood BLOOD SPECIMEN / Unknown Lab Venipuncture / Unknown 10/03/2020 2:42 PM CDT 10/03/2020 2:57 PM CDT Ana Maria Fulton MD LAB - CHEMISTRY ORDMan [facility] Performing Organization Address City/[facility]/ZIP Co de Phone Number [address] [address], [place] [phone] * HEPATITIS B SURFACE ANTIGEN W RFLX CONFIRMATION (10/03/2020 2:42 PM CDT) Pathologist [facility] Hepatitis B Virus Surface Antigen Non-reacti ve Non-reacti ve 10/03/2020 3:58 PM CDT [facility] Blood BLOOD SPECIMEN / Unknown Lab Venipuncture / Unknown 10/03/2020 2:42 PM CDT 10/03/2020 2:57 PM CDT Ana Maria Fulton MD LAB - CHEMISTRY KRYS [facility] Performing Organization Address City/[facility]/ZIP Co de Phone Number [address] [address], [facility] [phone] * CK BLOOD (10/03/2020 2:42 PM CDT) Pathologist [facility] CK Total 87 30 - 200 U/L 10/03/2020 3:26 PM CDT [facility] Blood BLOOD SPECIMEN / Unknown Lab Venipuncture / Unknown 10/03/2020 2:42 PM CDT 10/03/2020 2:59 PM CDT Ana Maria Fulton MD LAB - CHEMISTRY KRYS [facility] Performing Organization Address City/[facility]/ZIP Co de Phone Number [address] [address], [place] [phone] * XR FOOT RIGHT WT BEARING 3VW (10/03/2020 2:34 PM CDT) Anatomical Region Laterality Modality Ankle / Foot Radiographic Beti ging 10/03/2020 2:38 PM CDT Impressions 10/03/2020 2:44 PM CDT IMPRESSION: 1. Right and left hands: Very mild osteoarthritis, left greater the right. 2. Right and left feet: Very mild osteoarthritis, right greater than left. 3. Sacroiliac joints: Normal. This report was electronically signed by CLIFFORD OZUNA MD on 10/03/2020 2:44 PM . Narrative 10/03/2020 2:44 PM CDT Exam: 1. XR HAND RIGHT 3VW 2.XR HAND LEFT 3VW 3.XR FOOT RIGHT WT BEARING 3VW 4.XR FOOT LEFT WT BEARING 3VW 5.XR SI JOINTS 3VW History: M25.50: Polyarthralgia Comparison: None. Findings: Right hand: No acute fracture or dislocation is present. A chronic ossific fragment is seen adjacent to the ulnar styloid process. There is mild osteoarthritis at several joints. No erosions are seen. Bone density is normal. The soft tissues are normal. Left hand: No fracture or dislocation is present. There is mild osteoarthritis at a few joints. No erosions are seen. Bone density is normal. The soft tissues are normal. Right foot: No fracture or dislocation is present. Mild dorsal tarsometatarsal spurring is seen on the lateral view. Small osteophytes are noted at the medial aspect of the first tarsometatarsal joint. Otherwise the joint spaces are normal. No erosions are seen. Small posterior and moderate plantar calcaneal spurs are noted. Bone density is normal. The soft tissues are normal. Left foot: No fracture or dislocation is present. A small osteophyte is seen at the medial aspect of the first tarsometatarsal joint. The joint spaces are normal. No erosions are seen. Bone density is normal. The soft tissues are normal. Small calcaneal spurs are noted. Sacroiliac joints: There is no erosion, widening, sclerosis, narrowing, or ankylosis of either sacroiliac joint. The pubic symphysis and hip joint spaces are normal. There is mild chronic deformity at the anterior aspect of the left iliac crest. Small iliac crest and lumbar spine enthesophytes are visible. There is lower lumbar degenerative disc disease. Procedure Note Clifford Ozuna MD - 10/03/2020 Exam: 1. XR HAND RIGHT 3VW 2.XR HAND LEFT 3VW 3.XR FOOT RIGHT WT BEARING 3VW 4.XR FOOT LEFT WT BEARING 3VW 5.XR SI JOINTS 3VW History: M25.50: Polyarthralgia Comparison: None. Findings: Right hand: No acute fracture or dislocation is present. A chronic ossific fragmentis seen adjacent to the ulnar styloid process. There is mild osteoarthritis at several joints. No erosions are seen. Bone density is normal. The soft tissues are normal. Left hand: No fracture or dislocation is present. There is mild osteoarthritis at a few joints. No erosions are seen. Bone density is normal. The soft tissues are normal. Right foot: No fracture or dislocation is present. Mild dorsal tarsometatarsal spurring is seen on the lateral view. Small osteophytes are noted at the medial aspect of the first tarsometatarsal joint. Otherwise the joint spaces are normal. No erosions are seen. Small posterior and moderate plantar calcaneal spurs are noted. Bone density is normal. The soft tissues are normal. Left foot: No fracture or dislocation is present. A small osteophyte is seen at the medial aspect of the first tarsometatarsal joint. The joint spaces are normal. No erosions are seen. Bone density is normal. The soft tissues are normal. Small calcaneal spurs are noted. Sacroiliac joints: There is no erosion, widening, sclerosis, narrowing, or ankylosis of either sacroiliac joint. The pubic symphysis and hip joint spaces are normal. There is mild chronic deformity at the anterior aspect of theleft iliac crest. Small iliac crest and lumbar spine enthesophytes arevisible. There is lower lumbar degenerative disc disease. IMPRESSION: 1. Right and left hands: Very mild osteoarthritis, left greater theright. 2. Right and left feet: Very mild osteoarthritis, right greater thanleft. 3. Sacroiliac joints: Normal. This report was electronically signed by CLIFFORD OZUNA MD on10/03/2020 2:44 PM . Ana Maria Fulton MD DIAGNOSTIC IMAGING O RDERABLES * XR FOOT LEFT WT BEARING 3VW (10/03/2020 2:34 PM CDT) Anatomical Region Laterality Modality Ankle / Foot Radiographic Beti ging 10/03/2020 2:38 PM CDT Impressions 10/03/2020 2:44 PM CDT IMPRESSION: 1. Right and left hands: Very mild osteoarthritis, left greater the right. 2. Right and left feet: Very mild osteoarthritis, right greater than left. 3. Sacroiliac joints: Normal. This report was electronically signed by CLIFFORD OZUNA MD on 10/03/2020 2:44 PM . Narrative 10/03/2020 2:44 PM CDT Exam: 1. XR HAND RIGHT 3VW 2.XR HAND LEFT 3VW 3.XR FOOT RIGHT WT BEARING 3VW 4.XR FOOT LEFT WT BEARING 3VW 5.XR SI JOINTS 3VW History: M25.50: Polyarthralgia Comparison: None. Findings: Right hand: No acute fracture or dislocation is present. A chronic ossific fragment is seen adjacent to the ulnar styloid process. There is mild osteoarthritis at several joints. No erosions are seen. Bone density is normal. The soft tissues are normal. Left hand: No fracture or dislocation is present. There is mild osteoarthritis at a few joints. No erosions are seen. Bone density is normal. The soft tissues are normal. Right foot: No fracture or dislocation is present. Mild dorsal tarsometatarsal spurring is seen on the lateral view. Small osteophytes are noted at the medial aspect of the first tarsometatarsal joint. Otherwise the joint spaces are normal. No erosions are seen. Small posterior and moderate plantar calcaneal spurs are noted. Bone density is normal. The soft tissues are normal. Left foot: No fracture or dislocation is present. A small osteophyte is seen at the medial aspect of the first tarsometatarsal joint. The joint spaces are normal. No erosions are seen. Bone density is normal. The soft tissues are normal. Small calcaneal spurs are noted. Sacroiliac joints: There is no erosion, widening, sclerosis, narrowing, or ankylosis of either sacroiliac joint. The pubic symphysis and hip joint spaces are normal. There is mild chronic deformity at the anterior aspect of the left iliac crest. Small iliac crest and lumbar spine enthesophytes are visible. There is lower lumbar degenerative disc disease. Procedure Note Clifford Ozuna MD - 10/03/2020 Exam: 1. XR HAND RIGHT 3VW 2.XR HAND LEFT 3VW 3.XR FOOT RIGHT WT BEARING 3VW 4.XR FOOT LEFT WT BEARING 3VW 5.XR SI JOINTS 3VW History: M25.50: Polyarthralgia Comparison: None. Findings: Right hand: No acute fracture or dislocation is present. A chronic ossific fragmentis seen adjacent to the ulnar styloid process. There is mild osteoarthritis at several joints. No erosions are seen. Bone density is normal. The soft tissues are normal. Left hand: No fracture or dislocation is present. There is mild osteoarthritis at a few joints. No erosions are seen. Bone density is normal. The soft tissues are normal. Right foot: No fracture or dislocation is present. Mild dorsal tarsometatarsal spurring is seen on the lateral view. Small osteophytes are noted at the medial aspect of the first tarsometatarsal joint. Otherwise the joint spaces are normal. No erosions are seen. Small posterior and moderate plantar calcaneal spurs are noted. Bone density is normal. The soft tissues are normal. Left foot: No fracture or dislocation is present. A small osteophyte is seen at the medial aspect of the first tarsometatarsal joint. The joint spaces are normal. No erosions are seen. Bone density is normal. The soft tissues are normal. Small calcaneal spurs are noted. Sacroiliac joints: There is no erosion, widening, sclerosis, narrowing, or ankylosis of either sacroiliac joint. The pubic symphysis and hip joint spaces are normal. There is mild chronic deformity at the anterior aspect of theleft iliac crest. Small iliac crest and lumbar spine enthesophytes arevisible. There is lower lumbar degenerative disc disease. IMPRESSION: 1. Right and left hands: Very mild osteoarthritis, left greater theright. 2. Right and left feet: Very mild osteoarthritis, right greater thanleft. 3. Sacroiliac joints: Normal. This report was electronically signed by CLIFFORD OZUNA MD on10/03/2020 2:44 PM . Ana Maria Fulotn MD DIAGNOSTIC IMAGING O RDERABLES * XR HAND RIGHT 3VW OR MORE (10/03/2020 2:34 PM CDT) Anatomical Region Laterality Modality Wrist / Hand Radiographic Beti ging 10/03/2020 2:38 PM CDT Impressions 10/03/2020 2:44 PM CDT IMPRESSION: 1. Right and left hands: Very mild osteoarthritis, left greater the right. 2. Right and left feet: Very mild osteoarthritis, right greater than left. 3. Sacroiliac joints: Normal. This report was electronically signed by CLIFFORD OZUNA MD on 10/03/2020 2:44 PM . Narrative 10/03/2020 2:44 PM CDT Exam: 1. XR HAND RIGHT 3VW 2.XR HAND LEFT 3VW 3.XR FOOT RIGHT WT BEARING 3VW 4.XR FOOT LEFT WT BEARING 3VW 5.XR SI JOINTS 3VW History: M25.50: Polyarthralgia Comparison: None. Findings: Right hand: No acute fracture or dislocation is present. A chronic ossific fragment is seen adjacent to the ulnar styloid process. There is mild osteoarthritis at several joints. No erosions are seen. Bone density is normal. The soft tissues are normal. Left hand: No fracture or dislocation is present. There is mild osteoarthritis at a few joints. No erosions are seen. Bone density is normal. The soft tissues are normal. Right foot: No fracture or dislocation is present. Mild dorsal tarsometatarsal spurring is seen on the lateral view. Small osteophytes are noted at the medial aspect of the first tarsometatarsal joint. Otherwise the joint spaces are normal. No erosions are seen. Small posterior and moderate plantar calcaneal spurs are noted. Bone density is normal. The soft tissues are normal. Left foot: No fracture or dislocation is present. A small osteophyte is seen at the medial aspect of the first tarsometatarsal joint. The joint spaces are normal. No erosions are seen. Bone density is normal. The soft tissues are normal. Small calcaneal spurs are noted. Sacroiliac joints: There is no erosion, widening, sclerosis, narrowing, or ankylosis of either sacroiliac joint. The pubic symphysis and hip joint spaces are normal. There is mild chronic deformity at the anterior aspect of the left iliac crest. Small iliac crest and lumbar spine enthesophytes are visible. There is lower lumbar degenerative disc disease. Procedure Note Clifford Ozuna MD - 10/03/2020 Exam: 1. XR HAND RIGHT 3VW 2.XR HAND LEFT 3VW 3.XR FOOT RIGHT WT BEARING 3VW 4.XR FOOT LEFT WT BEARING 3VW 5.XR SI JOINTS 3VW History: M25.50: Polyarthralgia Comparison: None. Findings: Right hand: No acute fracture or dislocation is present. A chronic ossific fragmentis seen adjacent to the ulnar styloid process. There is mild osteoarthritis at several joints. No erosions are seen. Bone density is normal. The soft tissues are normal. Left hand: No fracture or dislocation is present. There is mild osteoarthritis at a few joints. No erosions are seen. Bone density is normal. The soft tissues are normal. Right foot: No fracture or dislocation is present. Mild dorsal tarsometatarsal spurring is seen on the lateral view. Small osteophytes are noted at the medial aspect of the first tarsometatarsal joint. Otherwise the joint spaces are normal. No erosions are seen. Small posterior and moderate plantar calcaneal spurs are noted. Bone density is normal. The soft tissues are normal. Left foot: No fracture or dislocation is present. A small osteophyte is seen at the medial aspect of the first tarsometatarsal joint. The joint spaces are normal. No erosions are seen. Bone density is normal. The soft tissues are normal. Small calcaneal spurs are noted. Sacroiliac joints: There is no erosion, widening, sclerosis, narrowing, or ankylosis of either sacroiliac joint. The pubic symphysis and hip joint spaces are normal. There is mild chronic deformity at the anterior aspect of theleft iliac crest. Small iliac crest and lumbar spine enthesophytes arevisible. There is lower lumbar degenerative disc disease. IMPRESSION: 1. Right and left hands: Very mild osteoarthritis, left greater theright. 2. Right and left feet: Very mild osteoarthritis, right greater thanleft. 3. Sacroiliac joints: Normal. This report was electronically signed by CLIFFORD OZUNA MD on10/03/2020 2:44 PM . Ana Maria Fulton MD DIAGNOSTIC IMAGING O RDERABLES * XR HAND LEFT 3VW OR MORE (10/03/2020 2:34 PM CDT) Anatomical Region Laterality Modality Wrist / Hand Radiographic Beti ging 10/03/2020 2:38 PM CDT Impressions 10/03/2020 2:44 PM CDT IMPRESSION: 1. Right and left hands: Very mild osteoarthritis, left greater the right. 2. Right and left feet: Very mild osteoarthritis, right greater than left. 3. Sacroiliac joints: Normal. This report was electronically signed by CLIFFORD OZUNA MD on 10/03/2020 2:44 PM . Narrative 10/03/2020 2:44 PM CDT Exam: 1. XR HAND RIGHT 3VW 2.XR HAND LEFT 3VW 3.XR FOOT RIGHT WT BEARING 3VW 4.XR FOOT LEFT WT BEARING 3VW 5.XR SI JOINTS 3VW History: M25.50: Polyarthralgia Comparison: None. Findings: Right hand: No acute fracture or dislocation is present. A chronic ossific fragment is seen adjacent to the ulnar styloid process. There is mild osteoarthritis at several joints. No erosions are seen. Bone density is normal. The soft tissues are normal. Left hand: No fracture or dislocation is present. There is mild osteoarthritis at a few joints. No erosions are seen. Bone density is normal. The soft tissues are normal. Right foot: No fracture or dislocation is present. Mild dorsal tarsometatarsal spurring is seen on the lateral view. Small osteophytes are noted at the medial aspect of the first tarsometatarsal joint. Otherwise the joint spaces are normal. No erosions are seen. Small posterior and moderate plantar calcaneal spurs are noted. Bone density is normal. The soft tissues are normal. Left foot: No fracture or dislocation is present. A small osteophyte is seen at the medial aspect of the first tarsometatarsal joint. The joint spaces are normal. No erosions are seen. Bone density is normal. The soft tissues are normal. Small calcaneal spurs are noted. Sacroiliac joints: There is no erosion, widening, sclerosis, narrowing, or ankylosis of either sacroiliac joint. The pubic symphysis and hip joint spaces are normal. There is mild chronic deformity at the anterior aspect of the left iliac crest. Small iliac crest and lumbar spine enthesophytes are visible. There is lower lumbar degenerative disc disease. Procedure Note Clifford Ozuna MD - 10/03/2020 Exam: 1. XR HAND RIGHT 3VW 2.XR HAND LEFT 3VW 3.XR FOOT RIGHT WT BEARING 3VW 4.XR FOOT LEFT WT BEARING 3VW 5.XR SI JOINTS 3VW History: M25.50: Polyarthralgia Comparison: None. Findings: Right hand: No acute fracture or dislocation is present. A chronic ossific fragmentis seen adjacent to the ulnar styloid process. There is mild osteoarthritis at several joints. No erosions are seen. Bone density is normal. The soft tissues are normal. Left hand: No fracture or dislocation is present. There is mild osteoarthritis at a few joints. No erosions are seen. Bone density is normal. The soft tissues are normal. Right foot: No fracture or dislocation is present. Mild dorsal tarsometatarsal spurring is seen on the lateral view. Small osteophytes are noted at the medial aspect of the first tarsometatarsal joint. Otherwise the joint spaces are normal. No erosions are seen. Small posterior and moderate plantar calcaneal spurs are noted. Bone density is normal. The soft tissues are normal. Left foot: No fracture or dislocation is present. A small osteophyte is seen at the medial aspect of the first tarsometatarsal joint. The joint spaces are normal. No erosions are seen. Bone density is normal. The soft tissues are normal. Small calcaneal spurs are noted. Sacroiliac joints: There is no erosion, widening, sclerosis, narrowing, or ankylosis of either sacroiliac joint. The pubic symphysis and hip joint spaces are normal. There is mild chronic deformity at the anterior aspect of theleft iliac crest. Small iliac crest and lumbar spine enthesophytes arevisible. There is lower lumbar degenerative disc disease. IMPRESSION: 1. Right and left hands: Very mild osteoarthritis, left greater theright. 2. Right and left feet: Very mild osteoarthritis, right greater thanleft. 3. Sacroiliac joints: Normal. This report was electronically signed by CLIFFORD OZUNA MD on10/03/2020 2:44 PM . Ana Maria Fulton MD DIAGNOSTIC IMAGING O RDERABLES * XR SI JOINTS 3VW OR MORE (10/03/2020 2:34 PM CDT) Anatomical Region Laterality Modality Pelvis, Lower Extremity Radiogra phic Imaging 10/03/2020 2:38 PM CDT Impressions 10/03/2020 2:44 PM CDT IMPRESSION: 1. Right and left hands: Very mild osteoarthritis, left greater the right. 2. Right and left feet: Very mild osteoarthritis, right greater than left. 3. Sacroiliac joints: Normal. This report was electronically signed by CLIFFORD OZUNA MD on 10/03/2020 2:44 PM . Narrative 10/03/2020 2:44 PM CDT Exam: 1. XR HAND RIGHT 3VW 2.XR HAND LEFT 3VW 3.XR FOOT RIGHT WT BEARING 3VW 4.XR FOOT LEFT WT BEARING 3VW 5.XR SI JOINTS 3VW History: M25.50: Polyarthralgia Comparison: None. Findings: Right hand: No acute fracture or dislocation is present. A chronic ossific fragment is seen adjacent to the ulnar styloid process. There is mild osteoarthritis at several joints. No erosions are seen. Bone density is normal. The soft tissues are normal. Left hand: No fracture or dislocation is present. There is mild osteoarthritis at a few joints. No erosions are seen. Bone density is normal. The soft tissues are normal. Right foot: No fracture or dislocation is present. Mild dorsal tarsometatarsal spurring is seen on the lateral view. Small osteophytes are noted at the medial aspect of the first tarsometatarsal joint. Otherwise the joint spaces are normal. No erosions are seen. Small posterior and moderate plantar calcaneal spurs are noted. Bone density is normal. The soft tissues are normal. Left foot: No fracture or dislocation is present. A small osteophyte is seen at the medial aspect of the first tarsometatarsal joint. The joint spaces are normal. No erosions are seen. Bone density is normal. The soft tissues are normal. Small calcaneal spurs are noted. Sacroiliac joints: There is no erosion, widening, sclerosis, narrowing, or ankylosis of either sacroiliac joint. The pubic symphysis and hip joint spaces are normal. There is mild chronic deformity at the anterior aspect of the left iliac crest. Small iliac crest and lumbar spine enthesophytes are visible. There is lower lumbar degenerative disc disease. Procedure Note Clifford Ozuna MD - 10/03/2020 Exam: 1. XR HAND RIGHT 3VW 2.XR HAND LEFT 3VW 3.XR FOOT RIGHT WT BEARING 3VW 4.XR FOOT LEFT WT BEARING 3VW 5.XR SI JOINTS 3VW History: M25.50: Polyarthralgia Comparison: None. Findings: Right hand: No acute fracture or dislocation is present. A chronic ossific fragmentis seen adjacent to the ulnar styloid process. There is mild osteoarthritis at several joints. No erosions are seen. Bone density is normal. The soft tissues are normal. Left hand: No fracture or dislocation is present. There is mild osteoarthritis at a few joints. No erosions are seen. Bone density is normal. The soft tissues are normal. Right foot: No fracture or dislocation is present. Mild dorsal tarsometatarsal spurring is seen on the lateral view. Small osteophytes are noted at the medial aspect of the first tarsometatarsal joint. Otherwise the joint spaces are normal. No erosions are seen. Small posterior and moderate plantar calcaneal spurs are noted. Bone density is normal. The soft tissues are normal. Left foot: No fracture or dislocation is present. A small osteophyte is seen at the medial aspect of the first tarsometatarsal joint. The joint spaces are normal. No erosions are seen. Bone density is normal. The soft tissues are normal. Small calcaneal spurs are noted. Sacroiliac joints: There is no erosion, widening, sclerosis, narrowing, or ankylosis of either sacroiliac joint. The pubic symphysis and hip joint spaces are normal. There is mild chronic deformity at the anterior aspect of theleft iliac crest. Small iliac crest and lumbar spine enthesophytes arevisible. There is lower lumbar degenerative disc disease. IMPRESSION: 1. Right and left hands: Very mild osteoarthritis, left greater theright. 2. Right and left feet: Very mild osteoarthritis, right greater thanleft. 3. Sacroiliac joints: Normal. This report was electronically signed by CLIFFORD OZUNA MD on10/03/2020 2:44 PM . Ana Maria Fulton MD DIAGNOSTIC IMAGING O RDERABLES * CT DISCOGRAM (12/25/2019 10:41 AM CDT) Only the most recent of2 resultswithin the time period is included. Anatomical Region Laterality Modality Spine Computed Tomogra phy 12/25/2019 3:14 PM CDT Narrative 12/25/2019 3:25 PM CDT Examination: Post discogram CT lumbar spine. Indication for examination: Low back pain, lumbar disc degeneration. Post discogram CT examination of the lumbar spine is performed with thin section helical technique with additional sagittal and coronal reconstructions. Comparison is made with a prior study of November 26, 2019. Sagittal images demonstrate hypertrophic and degenerative change from L2-3 through L5-S1. There is posterior annular bulge, relatively mild, at each of these levels. No spinal stenosis or high-grade thecal sac compression is identified in sagittal projection. There is facet arthrosis L4-5 and L5-S1. No fracture. No lytic or blastic bone destruction. No gross soft tissue mass. Axial images are obtained from L1-L2 through L5-S1. L1-L2: Normal in axial projection. L2-3: Mild diffuse annular bulge. No focal disc protrusion. Foramina are patent. L3-4: Mild diffuse annular bulge. Findings are eccentric to the right with a mild degree of encroachment right L3 foramen. L4-5: Minimal diffuse annular bulge. Facet hypertrophy right greater than left. No focal disc protrusion. There is mild encroachment right L4 foramen as compared to the left. No high-grade thecal sac compression. L5-S1: Mild diffuse annular bulge, most prominent centrally at and slightly below the disc space. No thecal sac encroachment. There is facet arthrosis. Findings result in mild encroachment L5 foramen bilaterally. CONCLUSION: Hypertrophic and degenerative change L2-3 through L5-S1 as described in detail above. No focal disc protrusion. Mild encroachment right L3, right L4, bilateral L5 foramina. No spinal stenosis or high-grade thecal sac compression. No fracture or bone destruction. *Reading Radiologist: Prasad Gomez on 12/25/2019 at 3:25 PM Procedure Note Prasad Gomez MD - 12/25/2019 Examination: Post discogram CT lumbar spine. Indication for examination: Low back pain, lumbar disc degeneration. Post discogram CT examination of the lumbar spine is performed with thin section helical technique with additional sagittal and coronal reconstructions. Comparison is made with a prior study of November 26, 2019. Sagittal images demonstrate hypertrophic and degenerative change from L2-3 through L5-S1. There is posterior annular bulge, relatively mild, at each of these levels. No spinal stenosis or high-grade thecal sac compression is identified in sagittal projection. There is facet arthrosis L4-5 and L5-S1. No fracture. No lytic or blastic bone destruction. No gross soft tissue mass. Axial images are obtained from L1-L2 through L5-S1. L1-L2: Normal in axial projection. L2-3: Mild diffuse annular bulge. No focal disc protrusion. Foramina are patent. L3-4: Mild diffuse annular bulge. Findings are eccentric to the right with a mild degree of encroachment right L3 foramen. L4-5: Minimal diffuse annular bulge. Facet hypertrophy right greater than left. No focal disc protrusion. There is mild encroachment right L4 foramen as compared to the left. No high-grade thecal sac compression. L5-S1: Mild diffuse annular bulge, most prominent centrally at and slightly below the disc space. No thecal sac encroachment. There is facet arthrosis. Findings result in mild encroachment L5 foramen bilaterally. CONCLUSION: Hypertrophic and degenerative change L2-3 through L5-S1 as described in detail above. No focal disc protrusion. Mild encroachment right L3, right L4, bilateral L5 foramina. No spinal stenosis or high-grade thecal sac compression. No fracture or bone destruction. *Reading Radiologist: Prasad Gomez on 12/25/2019 at 3:25 PM Gerardo Plaza II, MD CT ORDERABL ES * IR DISCOGRAM LUMBAR (12/25/2019 10:29 AM CDT) Anatomical Region Laterality Modality Spine X-Ray Angiograph y 12/25/2019 11:3 1 AM CDT Narrative 12/25/2019 11:33 AM CDT Examination: Lumbar discography, for levels. Indication for examination: Recurrent low back pain. Lumbar disc degeneration.. This procedure was performed in the radiology department by Dr. Gomez. After explanation of the procedure to the patient and routine Chloraprep and lidocaine skin prep, 22-gauge spinal needles were placed into the L2-3, L3-L4, L4-L5 and L5-S1 disc under fluoroscopic control. A right posterolateral oblique approach was chosen with the patient in prone position. Injections of nonionic contrast and saline were made with spot filming at each level.She tolerated the procedure satisfactorily. Fluoroscopy time 6.7 minutes. 11 radiographic images were obtained. Initially, L5-S1 was injected. There was low back pain with injection at L5-S1, more inferior than her typical low back pain and therefore of doubtful significance. Next, L4-L5 was injected. There was reproduction of the patient's characteristic low back pain with injection at L4-5. She states that this correlates with the majority of her major low back pain. Next, L3-L4 was injected. There was production of the more superior component of her typical low back pain with injection at L3-4. Lastly, L2-3 was injected. There was right-sided back pain with injection at L2-3, not specifically correlating with her usual low back pain. Conclusion: Reproduction of the majority of the patient's major low back pain with injection at L4-5. Reproduction of the more superior component of her typical low back pain with injection at L3-4. No specific pain reproduction at L2-3 or L5-S1. *Reading Radiologist: Prasad Gomez on 12/25/2019 at 11:33 AM Procedure Note Prasad Gomez MD - 12/25/2019 Examination: Lumbar discography, for levels. Indication for examination: Recurrent low back pain. Lumbar disc degeneration.. This procedure was performed in the radiology department by Dr. Gomez. After explanation of the procedure to the patient and routine Chloraprep and lidocaine skin prep, 22-gauge spinal needles were placed into the L2-3, L3-L4, L4-L5 and L5-S1 disc under fluoroscopic control. A right posterolateral oblique approach was chosen with the patient in prone position. Injections of nonionic contrast and saline were made with spot filming at each level.She tolerated the procedure satisfactorily. Fluoroscopy time 6.7 minutes. 11 radiographic images were obtained. Initially, L5-S1 was injected. There was low back pain with injection at L5-S1, more inferior than her typical low back pain and therefore of doubtful significance. Next, L4-L5 was injected. There was reproduction of the patient's characteristic low back pain with injection at L4-5. She states that this correlates with the majority of her major low back pain. Next, L3-L4 was injected. There was production of the more superior component of her typical low back pain with injection at L3-4. Lastly, L2-3 was injected. There was right-sided back pain with injection at L2-3, not specifically correlating with her usual low back pain. Conclusion: Reproduction of the majority of the patient's major low back pain with injection at L4-5. Reproduction of the more superior component of her typical low back pain with injection at L3-4. No specific pain reproduction at L2-3 or L5-S1. *Reading Radiologist: Prasad Gomez on 12/25/2019 at 11:33 AM Gerardo Plaza II, MD IR ORDERABL ES * MRI LUMBAR SPINE WO CONTRAST (07/05/2019) Anatomical Region Laterality Modality Spine Magnetic Resonan ce Ramos Colunga MD MR ORDERABLES * TN LARYNGOSCOPY,FLEX FIBER,DIAGNOSTIC (05/28/2019 10:57 AM ASSEMBLY LINE UPHOLSTERER) Narrative Joey Mayers MD - 05/28/2019 10:57 AM ASSEMBLY LINE UPHOLSTERER Husam Seay MD 05/28/2019 11:25 AM Procedure Note Endoscopy Type: Laryngoscopy without stroboscopy [id number] Endoscope: Flexible 4mm Scope Anesthesia: Lidocaine 2% and Neosynephrine 1/2% (nasal) Procedure Details: The patient was sitting upright in a chair with the head in a slightly anterior sniffing position. The topical anesthesia was administered and then adequate time was allowed for an anesthetic effect. The endoscope was passed thru the nasal cavity with the tongue retracted anteriorly. The tip of the endoscope was positioned in the oropharynx which allowed a complete view of the base of tongue, vallecula, pyriform recesses, epiglottis, bilateral true and false vocal folds, the interarytenoid and post cricoid region, and the immediate subglottis. Findings: Appropriate cord mobility, no masses/lesions. 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 Patient tolerated procedure well. Complications: None Dr Mayers was present for the entirety of the procedure. George Seay MD Otolaryngology Resident, PGY-1 05/28/2019 Husam Seay MD PROCEDURE/MINOR SURG ICAL ORDERABLES * MRI CERVICAL SPINE WWO CONT (06/21/2018 1:59 PM CDT) Anatomical Region Laterality Modality Spine Magnetic Resonan ce 06/21/2018 2:17 PM CDT Impressions 06/21/2018 2:27 PM CDT IMPRESSION: Anterior and posterior fixation of the cervical spine with C3-C5 laminectomies. No significant spinal canal stenosis. No cord compression or signal abnormality. No significant foraminal stenosis. This report was electronically signed by KARIE DAVEY on 06/21/2018 2:27 PM . Narrative 06/21/2018 2:27 PM CDT Contrast enhanced MRI of the cervical spine INDICATION: Right arm numbness COMPARISON: Cervical spine radiographs from 05/17/2018 and MRI cervical spine from 11/07/2015 from outside institution were reviewed. TECHNIQUE: MRI of the cervical spine was performed with and without intravenous contrast according to standard protocol. 8 mL of Gadavist was administered intravenously. FINDINGS: The patient is status post laminectomies from C3 to C5 and anterior fusion from C4 to C6 with fixation plate and screws. Posterior fixation hardware is seen from C3 to C6. Intervertebral disc spacer is seen at C4-5. Artifact from the hardware limits evaluation of the bone marrow signal. There is no fluid collection in the laminectomy bed. The prevertebral soft tissues are within normal limits. There is a significant paraspinal soft tissue abnormality. There is straightening of the cervical spine without significant subluxation. Other than post surgical changes, the vertebrae are normal in height without MR evidence of fracture and demonstrate normal bone marrow signal. There is no epidural fluid collection or abnormal enhancement. The spinal cord is unremarkable without compression, cord signal abnormality or enhancement. The cervicomedullary junction is within normal limits. Individual level analysis is as follows: C2-3: Minor disc degenerative changes, bilateral facet hypertrophy, left greater than right. No spinal canal stenosis. Mild left foraminal stenosis. C3-4: Post laminectomy. No focal disc herniation. Mild bilateral facet hypertrophy. No spinal canal or foraminal stenosis. C4-5: Postlaminectomy and anterior and posterior fusion. Central and right central disc osteophyte complex and bilateral uncovertebral hypertrophy. No spinal canal stenosis. Possibly right foraminal stenosis. C5-6: Postlaminectomy and anterior and posterior fusion. Disc ossified complex and bilateral facet hypertrophy. No spinal canal or significant foraminal stenosis. C6-7: No focal disc herniation. Bilateral facet hypertrophy. No spinal canal or foraminal stenosis. C7-T1: No focal disc herniation, spinal canal or foraminal stenosis. Procedure Note Karie Davey MD - 06/21/2018 Contrast enhanced MRI of the cervical spine INDICATION: Right arm numbness COMPARISON: Cervical spine radiographs from 05/17/2018 and MRI cervical spine from 11/07/2015 from outside institution were reviewed. TECHNIQUE: MRI of the cervical spine was performed with and without intravenous contrast according to standard protocol. 8 mL of Gadavistwas administered intravenously. FINDINGS: The patient is status post laminectomies from C3 to C5 and anteriorfusion from C4 to C6 with fixation plate and screws. Posterior fixationhardware is seen from C3 to C6. Intervertebral disc spacer is seen at C4-5. Artifact from the hardware limits evaluation of the bone marrow signal. There is no fluid collection in the laminectomy bed. The prevertebralsoft tissues are within normal limits. There is a significant paraspinal soft tissue abnormality. There is straightening of the cervical spine without significant subluxation. Other than post surgical changes, the vertebrae are normalin height without MR evidence of fracture and demonstrate normal bonemarrow signal. There is no epidural fluid collection or abnormal enhancement.The spinal cord is unremarkable without compression, cord signal abnormality or enhancement. The cervicomedullary junction is within normal limits. Individual level analysis is as follows: C2-3: Minor disc degenerative changes, bilateral facet hypertrophy, left greater than right. No spinal canal stenosis. Mild left foraminal stenosis. C3-4: Post laminectomy. No focal disc herniation. Mild bilateral facet hypertrophy. No spinal canal or foraminal stenosis. C4-5: Postlaminectomy and anterior and posterior fusion. Central andright central disc osteophyte complex and bilateral uncovertebral hypertrophy. No spinal canal stenosis. Possibly right foraminal stenosis. C5-6: Postlaminectomy and anterior and posterior fusion. Disc ossified complex and bilateral facet hypertrophy. No spinal canal or significant foraminal stenosis. C6-7: No focal disc herniation. Bilateral facet hypertrophy. No spinal canal or foraminal stenosis. C7-T1: No focal disc herniation, spinal canal or foraminal stenosis. IMPRESSION: Anterior and posterior fixation of the cervical spine with C3-C5 laminectomies. No significant spinal canal stenosis. No cord compression or signal abnormality. No significant foraminal stenosis. This report was electronically signed by KARIE DAVEY on 06/21/2018 2:27PM . Yanick Gonzalez MD MR ORDERABLES * (ABNORMAL) CREATININE BLOOD - POCT (IP) [facility] (06/21/2018 1:18 PM CDT) Creatinine POCT 1.06 0.3 - 1.3 mg/dL [facility] eGFR POCT 57(A) 60 ml/min [facility] Blood BLOOD SPECIMEN / Unknown 06/21/2018 1:18 PM CDT Yanick Gonzalez MD LAB - POINT OF CARE ORDERABLES Performing Organization Address City/State/[facility] Co de Phone Number [facility] [address] [place] [address] * XR CERVICAL SPINE 4 OR 5VW (05/17/2018 9:24 AM ASSEMBLY LINE UPHOLSTERER) Only the most recent of6 resultswithin the time period is included. Anatomical Region Laterality Modality Spine Radiographic Beti ging 05/17/2018 9:35 AM ASSEMBLY LINE UPHOLSTERER Impressions 05/17/2018 10:54 AM ASSEMBLY LINE UPHOLSTERER Impression: 1.Redemonstrated postoperative findings of cervical fusion hardware as described above. 2.Unchanged trace retrolisthesis of C3 on C4 and C4 on C5. Dictated by Orlando Abraham MD (radiology services manager) This report was approved by Orlando Abraham on 05/17/2018 10:53 AM . I, Dr. ELSA THOMAS have personally reviewed and interpreted this examination/study. This report was electronically signed by ELSA THOMAS on 05/17/2018 10:54 AM . Narrative 05/17/2018 10:54 AM ASSEMBLY LINE UPHOLSTERER Exam: XR CERVICAL SPINE 4 OR 5VW Date: 05/17/2018 9:24 AM History: Numbness/tingling Comparison: Cervical spine radiograph from 06/22/2017 Findings: There is redemonstration of posterior spinal fusion from C3 through C6 and anterior cervical spine fusion instrumentation extending from C5 through C7 and intervertebral disc spacer between C4 and C5, without significant change since prior. There is no evidence of loosening or fracture of the hardware. Redemonstrated trace retrolisthesis of C3 on C4 and C4 on C5. There is no change in alignment with flexion and extension. Vertebral body heights and intervertebral disc space widths are otherwise stable and maintained. No acute fracture or compression deformity is identified. The predental interval and prevertebral soft tissues are normal. Procedure Note Elsa Thomas MD - 05/17/2018 Exam: XR CERVICAL SPINE 4 OR 5VW Date: 05/17/2018 9:24 AM History: Numbness/tingling Comparison: Cervical spine radiograph from 06/22/2017 Findings: There is redemonstration of posterior spinal fusion from C3 through C6and anterior cervical spine fusion instrumentation extending from C5 through C7 and intervertebral disc spacer between C4 and C5, without significant change since prior. There is no evidence of loosening or fracture of the hardware. Redemonstrated trace retrolisthesis of C3 on C4 and C4 on C5. There is no change in alignment with flexion and extension. Vertebralbody heights and intervertebral disc space widths are otherwise stable and maintained. No acute fracture or compression deformity is identified.The predental interval and prevertebral soft tissues are normal. Impression: 1.Redemonstrated postoperative findings of cervical fusion hardware as described above. 2.Unchanged trace retrolisthesis of C3 on C4 and C4 on C5. Dictated by Orlando Abraham MD (radiology services manager) This report was approved by Orlando Abraham on 05/17/2018 10:53 AM . I, Dr. ELSA THOMAS have personally reviewed and interpreted this examination/study. This report was electronically signed by ELSA THOMAS on05/17/2018 10:54 AM . Yanick Gonzalez MD DIAGNOSTIC IMAGING O RDERABLES * IMAGING RADIOLOGY XRAY RESULTS ORDER (04/25/2018) Anatomical Region Laterality Modality Other Ramos Colunga MD IMAGING * TN DESTRUCT BENIGN LESION, 1-14 (11/25/2017 10:10 AM CDT) Narrative Lary Boss MD - 11/25/2017 10:10 AM CDT Jerardo Chau MD 11/25/2017 9:10 AM Diagnosis and treatment options discussed for ISK. Verbal consent obtained. Cryotherapy (Liquid Nitrogen) performed to 4 lesions (L leg x2, R leg x2) for 10 seconds each. Number of cycles: 1. Wound care reviewed and post-cryotherapy handout given. Jerardo Chau MD Dermatology Resident, PGY-2 Lary Boss MD PROCEDURE/MINOR SURG ICAL ORDERABLES * XR CERVICAL SPINE 2 OR 3VW (07/16/2016 7:29 AM CDT) Only the most recent of4 resultswithin the time period is included. Anatomical Region Laterality Modality Spine Other Impressions 07/16/2016 4:20 PM CDT IMPRESSION: Instrumented cervical spinal fusion. This report was electronically signed by CLIFFORD OZUNA MD on 07/16/2016 4:20 PM . Narrative 07/16/2016 4:20 PM CDT Exam: PX SPINE CERVICAL 2 OR 3 VIEWS History: eval post op hardware Comparison: 06/09/2016 Findings: Instrumented cervical spinal fusion is present with posterior vertical rods and screws at C3-C6, an anterior plate and screws at C5 through C7, and an intervertebral disc space fusion device at C4-5. The lower cervical spine and inferior portion of the hardware are difficult to visualize on the lateral projection due to the shoulders. The visualized hardware is intact and unchanged in alignment. There is bony fusion across some of the disc spaces. There is 3 mm retrolisthesis at C3-C4, unchanged. There is upper cervical degenerative disc disease. The prevertebral soft tissues are normal. No fracture or subluxation is seen. A drain projects over the neck on the AP projection. Procedure Note Clifford Ozuna MD - 07/08/2017 Exam: PX SPINE CERVICAL 2 OR 3 VIEWS History: eval post op hardware Comparison: 06/09/2016 Findings: Instrumented cervical spinal fusion is present with posterior verticalrods and screws at C3-C6, an anterior plate and screws at C5 through C7,and an intervertebral disc space fusion device at C4-5. The lower cervicalspine and inferior portion of the hardware are difficult to visualize on the lateral projection due to theshoulders. The visualized hardware is intact and unchanged in alignment.There is bony fusion across some of the disc spaces. There is 3 mmretrolisthesis at C3-C4, unchanged. There is upper cervical degenerative disc disease. The prevertebral softtissues are normal. No fracture or subluxation is seen. A drain projectsover the neck on the AP projection. IMPRESSION IMPRESSION: Instrumented cervical spinal fusion. This report was electronically signed by CLIFFORD OZUNA MD on 07/16/20164:20 PM . Yanick Gonzalez MD DIAGNOSTIC IMAGING O RDERABLES * (ABNORMAL) BASIC METABOLIC PANEL (CALCIUM TOTAL) (07/16/2016 3:34 AM CDT) Only the most recent of2 resultswithin the time period is included. BUN 8 7 - 26 mg/dL [facility] Creatinine 0.5(L) 0.6 - 1.2 mg/dL [facility] Sodium 142 136 - 145 mmol/L [facility] Potassium 3.8 3.5 - 4.5 mmol/L [facility] Chloride 106 98 - 107 mmol/L [facility] CO2 29 22 - 29 mmol/L [facility] Glucose 117(H) 70 - 115 mg/dL [facility] Calcium 8.8 8.4 - 10.2 mg/dL [facility] Anion Gap 11 8 - 18 [facility] BUN/Creatinine Ratio 16 7 - 23 [facility] Osmolality Calculated 293 270 - 300 mOsm/kg [facility] eGFR >60 >60 mL/min/1.7 3 m2 [facility] Blood specimen (specimen) BLOOD SPECIMEN / Unknown 07/16/2016 3:34 AM CDT 07/16/2016 3:56 AM CDT Yanick Gonzalez MD LAB - CHEMISTRY [facility] Organization Address City/State/ZIP Co de Phone Number [address] [phone] * [place] [facility] (07/15/2016 10:46 AM CDT) Anatomical Region Laterality Modality Other Narrative 07/15/2016 10:46 AM CDT Fluoroscopy was used for this exam. Please see the Operative report. Procedure Note Provider, MD Katherine - 07/08/2017 Fluoroscopy was used for this exam. Please see the Operative report. Yanick Gonzalez MD FLUOROSCOPY ORDERABL ES * (ABNORMAL) BLOOD GASES ART COMPLETE [facility] OR (07/15/2016 10:22 AM CDT) Only the most recent of2 resultswithin the time period is included. pH Arterial 7.44 7.35 - 7.45 [facility] pCO2 Arterial 39 35 - 45 mmHg [facility] pO2 Arterial 161(H) 77 - 101 mmHg [facility] HCO3 Arterial 25.3 22.0 - 26.0 mmol/L [facility] TCO2 Arterial 26.5 25.0 - 29.0 mmol/L [facility] Base Excess Arterial 1.2 -2.0 - 2.0 mmol/L [facility] Hemoglobin Arterial 11.6(L) 12.0 - 15.5 g/dL [facility] Oxyhemoglobin Arterial 96.5 95.0 - 100.0 % [facility] Carboxyhemoglobin 1.4 0.0 - 3.0 % [facility] Methemoglobin 0.1 0.0 - 2.0 % [facility] FI O2 Arterial 55.0 % [facility] Ionized Calcium Whole Blood 1.09 mmol/L [facility] Adjusted Ionized Calcium 1.11(L) 1.19 - 1.34 mmol/L [facility] Sodium Whole Blood 142 135 - 145 mmol/L [facility] Potassium Whole Blood 3.4(L) 3.5 - 5.5 mmol/L [facility] Chloride Whole Blood 108 101 - 111 mmol/L [facility] Glucose Whole Blood 111(H) 70 - 110 mg/dL [facility] Lactic Acid Whole Blood 2.2 0.5 - 3.4 mmol/L [facility] Blood specimen (specimen) 07/15/2016 10:22 AM CDT 07/15/2016 10:22 AM CDT Yanick Gonzalez MD LAB - BLOOD GASES OR DERABLES Performing Organization Address City/[facility]/ZIP Co de Phone Number [facility] [address] [place] [address] * TYPE + SCREEN PANEL (07/15/2016 6:32 AM CDT) Typem A POS [facility] Antibody Screen NEG [facility] Blood specimen (specimen) 07/15/2016 6:32 AM CDT 07/15/2016 6:43 AM CDT Wally Will MD LAB - BLOOD BANK ORD ERABLES Performing Organization Address [facility] Co de Phone Number [facility] [address] [place] [address] * CROSSMATCH RBC LEUKOREDUCED (07/15/2016 6:32 AM CDT) 07/15/2016 6:32 AM CDT 07/15/2016 6:45 AM CDT Wally Will MD LAB - BLOOD BANK ORD ERABLES Performing Organization Address [facility] Co de Phone Number [address] * XR CHEST 2VW (06/29/2016 11:25 AM CDT) Only the most recent of2 resultswithin the time period is included. Anatomical Region Laterality Modality Chest Other Impressions 06/30/2016 9:36 AM CDT IMPRESSION: No acute pulmonary process. Dictated by Kassandra Graham MD (radiology services manager). This report was approved by Kassandra Graham M.D. on 06/30/2016 7:52 AM . IDr. CHYNA M.D. have personally reviewed and interpreted this examination/study. This report was electronically signed by CHYNA GUDINO M.D. on 06/30/2016 9:36 AM . Narrative 06/30/2016 9:36 AM CDT EXAMINATION: XR CHEST PA AND LATERAL HISTORY: pre op COMPARISON: No prior study is available for comparison. FINDINGS: There is no focal consolidation, pleural effusion, or pneumothorax. The cardiomediastinal silhouette is normal. Degenerative changes are noted in the thoracic spine. Anterior cervical discectomy and fusion hardware is seen at C5 through C7 levels with intervertebral disc space fusion device at C4-C5. Surgical clips project over the right upper quadrant. Procedure Note Chyna Gudino MD - 07/08/2017 EXAMINATION: XR CHEST PA AND LATERAL HISTORY: pre op COMPARISON: No prior study is available for comparison. FINDINGS: There is no focal consolidation, pleural effusion, or pneumothorax. Thecardiomediastinal silhouette is normal. Degenerative changes are noted inthe thoracic spine. Anterior cervical discectomy and fusion hardware isseen at C5 through C7 levels with intervertebral disc space fusion device at C4-C5. Surgical clips projectover the right upper quadrant. IMPRESSION IMPRESSION: No acute pulmonary process. Dictated by Kassandra Graham MD (radiology services manager). This report was approved by Kassandra Graham M.D. on 06/30/2016 7:52 AM. I, Dr. CHYNA GUDINO M.D. have personally reviewed and interpreted thisexamination/study. This report was electronically signed by CHYNA GUDINO M.D. on 06/30/20169:36 AM . Yanick Gonzalez MD DIAGNOSTIC IMAGING O RDERABLES * PTT [facility] (06/29/2016 11:08 AM CDT) APTT 25.6 23.0 - 38.4 Seconds [facility] [facility] Comment:Suggested therapeuti c range for full dose I.V. heparin therapy for venous thromboembolism is 66.0-91.0 seconds. Blood specimen (specimen) BLOOD SPECIMEN / Unknown 06/29/2016 11:08 AM CDT 06/29/2016 11:31 AM CDT Narrative [facility] - 06/29/2016 12:18 PM CDT Is patient on Heparin, Argatroban or Dabigatran?->N Yanick Gonzalez MD LAB - COAGULATION OR DERABLES [address] [phone] * (ABNORMAL) PT-INR U (06/29/2016 11:08 AM CDT) PT 11.9(L) 12.1 - 14.8 Seconds [facility] INR 0.9 See Comment [facility] Comment: Suggested therapeutic range for low-intensity coumadin therapy for venous thromboembolism prophylaxis is an INR of 2.0-3.0. For high risk patients (Mitral Valve Prosthesis, Atrial Fibrillation, history of TIA/stroke), suggested prophylactic therapeutic range is an INR of 2.5-3.5. Blood specimen (specimen) BLOOD SPECIMEN / Unknown 06/29/2016 11:08 AM CDT 06/29/2016 11:31 AM CDT Narrative [facility] - 06/29/2016 12:17 PM CDT Is patient on Heparin, Argatroban or Dabigatran?->N Yanick Gonzalez MD LAB - COAGULATION OR DERABLES [facility] [address] [phone] * EKG 12-LEAD (06/29/2016 12:00 AM CDT) 06/29/2016 Dave Kim CD ECG ORDERABLES Performing Organization Address [facility] Co de Phone Number [facility] * XR HANDS BILATERAL 2 VIEWS (09/04/2014 4:40 PM CDT) Anatomical Region Laterality Modality Wrist / Hand, Upper Extremity Ra diographic Imaging 09/04/2014 4:45 PM CDT Impressions 09/04/2014 5:14 PM CDT Mild degenerative change. Edited by Padmaja Leos on 09/04/2014 5:11 PM Narrative 09/04/2014 5:14 PM CDT BILATERAL HANDS, 2 VIEW HISTORY: Arthralgia. The texture and density of the osseous structures is normal. There is mild degenerative change of the proximal and distal interphalangeal articulations without significant joint space narrowing or evidence of an erosive arthropathy. Procedure Note Erickson Bernal MD - 09/04/2014 BILATERAL HANDS, 2 VIEW HISTORY: Arthralgia. The texture and density of the osseous structures is normal. There is mild degenerative change of the proximal and distal interphalangeal articulations without significant joint space narrowing or evidence of an erosive arthropathy. IMPRESSION Mild degenerative change. Edited by Padmaja Leos on 09/04/2014 5:11 PM Meng Villavicencio MD DIAGNOSTIC IMAGING O RDERABLES * XR FOOT BILAT 2 VIEWS (09/04/2014 4:40 PM CDT) Anatomical Region Laterality Modality Lower Extremity, Ankle / Foot Ra diographic Imaging 09/04/2014 4:43 PM CDT Narrative 09/04/2014 5:09 PM CDT BILATERAL FEET, FOUR VIEW History: Arthralgias. The osseous structures and joint spaces are normal. There is no fracture or dislocation. DIAGNOSIS: Normal. Edited by Carolyne England on 09/04/2014 5:08 PM Procedure Note Erickson Bernal MD - 09/04/2014 BILATERAL FEET, FOUR VIEW History: Arthralgias. The osseous structures and joint spaces are normal. There is no fracture or dislocation. DIAGNOSIS: Normal. Edited by Carolyne England on 09/04/2014 5:08 PM Meng Villavicencio MD DIAGNOSTIC IMAGING O RDERABLES * XR ANKLE BILAT 2 VIEWS (09/04/2014 4:40 PM CDT) Anatomical Region Laterality Modality Ankle / Foot, Lower Extremity Ra diographic Imaging 09/04/2014 4:43 PM CDT Impressions 09/04/2014 5:14 PM CDT Negative. Edited by Padmaja Leos on 09/04/2014 5:09 PM Narrative 09/04/2014 5:14 PM CDT BILATERAL ANKLES, 4 VIEW HISTORY: Arthralgias. The tibiotalar articulation and talar domes are normal. The joint spaces are preserved. No fracture, dislocation or joint effusion is present. Procedure Note Erickson Bernal MD - 09/04/2014 BILATERAL ANKLES, 4 VIEW HISTORY: Arthralgias. The tibiotalar articulation and talar domes are normal. The joint spaces are preserved. No fracture, dislocation or joint effusion is present. IMPRESSION Negative. Edited by Padmaja Leos on 09/04/2014 5:09 PM Meng Villavicencio MD DIAGNOSTIC IMAGING O RDERABLES * XR SACROILIAC JOINTS < 3 VW (09/04/2014 4:40 PM CDT) Anatomical Region Laterality Modality Pelvis, Lower Extremity Radiogra phic Imaging 09/04/2014 4:44 PM CDT Impressions 09/04/2014 5:14 PM CDT Mild degenerative change. Edited by Padmaja Leos on 09/04/2014 5:10 PM Narrative 09/04/2014 5:14 PM CDT SACROILIAC JOINTS, 3 VIEW HISTORY: Pain. There is mild degenerative change of the sacroiliac joints. The sacroiliac joints are open. No fracture or bone destruction is seen. Procedure Note Erickson Bernal MD - 09/04/2014 SACROILIAC JOINTS, 3 VIEW HISTORY: Pain. There is mild degenerative change of the sacroiliac joints. The sacroiliac joints are open. No fracture or bone destruction is seen. IMPRESSION Mild degenerative change. Edited by Padmaja Leos on 09/04/2014 5:10 PM Meng Villavicencio MD DIAGNOSTIC IMAGING O RDERABLES * XR LUMBAR SPINE 2 OR 3 VW (09/04/2014 4:40 PM CDT) Only the most recent of2 resultswithin the time period is included. Anatomical Region Laterality Modality Spine Radiographic Beti ging 09/04/2014 4:44 PM CDT Narrative 09/04/2014 5:14 PM CDT LUMBAR SPINE, THREE VIEW History: Pain. There is diffuse degenerative change of the thoracolumbar spine without fracture or subluxation or bone destruction. The sacroiliac joints are open. DIAGNOSIS: Degenerative change. Edited by Carolyne England on 09/04/2014 5:09 PM Procedure Note Erickson Bernal MD - 09/04/2014 LUMBAR SPINE, THREE VIEW History: Pain. There is diffuse degenerative change of the thoracolumbar spine without fracture or subluxation or bone destruction. The sacroiliac joints are open. DIAGNOSIS: Degenerative change. Edited by Carolyne England on 09/04/2014 5:09 PM Meng Villavicencio MD DIAGNOSTIC IMAGING O RDERABLES * FL MODIFIED BARIUM SWALLOW W/SPEECH (12/11/2013 10:16 AM CDT) Anatomical Region Laterality Modality Chest Radio Fluoroscop y 12/11/2013 10:2 3 AM CDT Narrative 12/11/2013 11:28 AM CDT MODIFIED BARIUM SWALLOW HISTORY: Difficulty swallowing No evidence of aspiration was identified. Please refer to the speech pathology report for final interpretation. Edited by Kiah Padilla on 12/11/2013 11:23 AM Procedure Note Erickson Bernal MD - 12/11/2013 MODIFIED BARIUM SWALLOW HISTORY: Difficulty swallowing No evidence of aspiration was identified. Please refer to the speech pathology report for final interpretation. Edited by Kiah Padilla on 12/11/2013 11:23 AM Loyd Grant MD FLUOROSCOPY ORDERABL ES * CARDIAC RHYTHM STRIP ORDER (11/15/2013 9:30 PM CDT) Provider Unknown CARDIAC SERVICES ORD ERABLES * XR SPINE 1 VIEW (11/13/2013 3:37 PM CDT) Narrative [facility] - 11/14/2013 6:08 PM CDT No Dictation. Loyd Grant MD DIAGNOSTIC IMAGING O RDERABLES [facility] [address] [place] [address] * XR HIP 2+ VW RIGHT (03/19/2011 7:06 AM ASSEMBLY LINE UPHOLSTERER) Anatomical Region Laterality Modality Pelvis, Lower Extremity Radiogra phic Imaging 03/19/2011 12:3 6 PM ASSEMBLY LINE UPHOLSTERER Impressions 03/19/2011 12:36 PM ASSEMBLY LINE UPHOLSTERER 1. Negative radiographs of the hip Narrative 03/19/2011 12:36 PM ASSEMBLY LINE UPHOLSTERER HISTORY: Pain AP and frogleg views of the right hip were performed. No comparison exams or reports are available to me, at this institution, at the time of interpretation. FINDINGS: The femoral head is appropriately seated within the acetabulum without evidence of subluxation or dislocation. The joint space is preserved. Procedure Note Andree Ware MD - 03/19/2011 HISTORY: Pain AP and frogleg views of the right hip were performed. No comparison exams or reports are available to me, at this institution, at the time of interpretation. FINDINGS: The femoral head is appropriately seated within the acetabulum without evidence of subluxation or dislocation. The joint space is preserved. IMPRESSION 1. Negative radiographs of the hip Prasad Middleton MD DIAGNOSTIC IMAGING O RDERABLES * D-DIMER (02/06/2011 10:20 AM CDT) D-Dimer 0.46 0.43 - 2.80 mg/L U [facility] Comment D-Dimer [facility] Comment: Immunoturbidometric (Advanced) D-Dimer Test In the evaluation of patients with suspected DVT or PE, a negative D-Dimer result of <1.0 mg/L has a published Negative Predictive Value of at least 88%. (Am J Clin Pathol 2003, 120, 930-937) [facility] and [facility] data indicate that a positive D-Dimer result has a Positive Predicitive Value of less than 1% (only 1 true positive identified among 227 positive tests). Although a negative result is useful to exclude DVT or PE, a positive result is of little value in establishing a diagnosis. The significance of either a negative or positive result must be determined in conjunction with clinical findings. Blood specimen (specimen) BLOOD SPECIMEN / Unknown 02/06/2011 10:20 AM CDT 02/06/2011 10:29 AM CDT Eddie Clements MD LAB - COAGULA TION ORDERABLES [facility] [address] [place] [address] Care Teams Accounts Payable Analyst Relationship Specialty Start Date End Date Panchito Ferraro MD [address] [place] [address] PCP - General Family Medicine 03/29/23 Betty Singh, RN Steward/Stewardess Room 11/14/13 Lucy Ledesma, RN Coordinator 06/22/23
--- OUTSIDE RECORDS SUMMARY | 2024-05-22 10:27 | XMS_ITS | Patient Health Record ---
Author Organization [facility] Address [address] [facility] [address] [place] [address] Support Name Relationship Address Phone Angella Moore Guarantor Unknown [phone] Reason For Referral No Information Plan Of Treatment No Information Insurance Providers Payer Name Payer Address Payer Phone Subscriber Number Group Number Insured Name Patient Relationship to Insured Coverage Start Date Coverage End Date [facility] [address] [address] [place], [place] [id number] Angella Moore Self - patient is the insured
== END 2024-05-22 09:30 | disposition home or self-care (01) ==
PROVIDERS: PCP Emergency Medicine
DX: M19.012 Primary osteoarthritis, left shoulder (principal); M19.011 Primary osteoarthritis, right shoulder; M47.816 Spondylosis without myelopathy or radiculopathy, lumbar region; M47.817 Spondylosis without myelopathy or radiculopathy, lumbosacral region; M43.19 Spondylolisthesis, multiple sites in spine; Z98.1 Arthrodesis status
CPT/HCPCS: 72050; 72100; 73030